=== PATIENT | male | born 1960 | race Caucasian/White ===

== ENCOUNTER 2017-11-11 06:15 | Day surgery (SDC) | END 2017-11-11 11:20 | disposition home or self-care (01) | DX: C21.0 Malignant neoplasm of anus, unspecified (principal); E03.9 Hypothyroidism, unspecified; I10 Essential (primary) hypertension; E11.9 Type 2 diabetes mellitus without complications; F17.210 Nicotine dependence, cigarettes, uncomplicated; Z79.899 Other long term (current) drug therapy; Z79.84 Long term (current) use of oral hypoglycemic drugs | CPT/HCPCS: 36561; 76937; 77001; 85610; 85730; 99152; 99153; C1788; J0690; J1642; J2250; J3010; J3370; J7030; J7050 ==

== ENCOUNTER 2017-11-12 06:24 | Day surgery (SDC) | payer OTHER ==
[~2017-11-12] VITALS: Ht 182.9 cm; Wt 102.0 kg
[2017-11-12] VITALS (8 sets, daily range): BP systolic 127–149; BP diastolic 71–89; PULSE 78–94; RESP 16–20; TEMP 97.9–98.4; O2SAT 92–95
[~2017-11-12 06:24] MED LIST: CAPE1TAB2 PO; DAPA1TAB3 PO; HYDR-3516 PO; LISI-515 PO; METF1000 PO; OXYC-396 PO
[2017-11-12] MEDS ORDERED: SODIUM CHLOR 0.9% 1000 ML IV SCH (07:00)
[2017-11-12] MEDS ORDERED: LIDOCAINE 1%/EPINEPHrine 1:100,000 SOLN 20 ML VIAL ONE (07:40)
[2017-11-12] MEDS ORDERED: fentaNYL CITRATE 250 MCG/5 ML AMP ONE (08:08)
[2017-11-12] MEDS ORDERED: MIDAZOLAM HCL 5 MG/5 ML VIAL ONE (08:08)
--- NOTE | 2017-11-12 09:36 | PD.RAD ---
Post CT Procedure Prog Note Pre Procedure Diagnosis: (1) Liver mass, left lobe Post Procedure Diagnosis: (1) Liver mass, left lobe Procedure Date: November 12, 2017 Supervising Radiologist: Benny Stewart Anesthesia: Local, Conscious Sedation Plan of Activity Patient to Unit: ROPU Patient Condition: Good See PACS Report for procedural detail/treatment Biopsy Imaging Guidance: CT Biopsy Procedure: Abdominal Mass, Liver Specimen: Core Biopsy Benny Stewart MD November 12, 2017 09:36
--- NOTE | 2017-11-12 10:13 | RADRPT ---
EXAM DATE: 11/12/2017 10:00 AM EDT AGE/SEX: 57 years / Male INDICATIONS: Liver biopsy. CLINICAL DATA: This is the patient's initial encounter. Patient reports that signs and symptoms have been present for 1 day and indicates a pain score of 0/10. MEDICAL/SURGICAL HISTORY: Carcinoma, anal. Deep venous thrombosis. Diabetes mellitus type II. Hypertension. Polycythemia. None. COMPARISON: No prior [facility] exams available for comparison. SEDATION TIME (min): 30 min BIOPSY SITE: . liver MEDICATION(S): midazolam (Versed) IV fentanyl (Sublimaze) IV DEVICE(S): 20 gauge Core biopsy needle Bard One . . PROCEDURE: CT guided . Liver mass biopsy Prior to the procedure informed consent was obtained. Any appropriate prior imaging studies were rev iewed. Using automated exposure control and adjustment of the mA and/or kV according to patient size, radiat ion dose was kept as low as reasonably achievable to obtain optimal diagnostic quality images. DICOM format image data is available electronically for review and comparison. The site was prepped in a sterile fashion. Full sterile technique was used, including cap, mask, derrell rile gloves and gown and a large sterile sheet. Hand hygiene and 2% chlorhexidine and/or betadine/al cohol prep was utilized per protocol for cutaneous antisepsis. The skin and subcutaneous tissues wer e infiltrated with local anesthetic solution. With CT guidance the previously identified target was localized. Biopsy was performed using the presc ribed needle as above. Adequate hemostasis was obtained with compression at the puncture site. Follow-up CT scan reveals no hemorrhage. The patient tolerated the procedure well and there were no complications. The patient was returned to the Radiology Outpatient Unit in stable condition. CONCLUSION: Uncomplicated CT guided biopsy. Electronically signed by: Benny Stewart MD 11/12/2017 10:12 AM EDT
== END 2017-11-12 12:40 | disposition home or self-care (01) ==
LOC: HROP 06:24 → HRIP 06:25 → HROP 12:40
PROVIDERS: ATTEND Internal Medicine
DX: R16.0 Hepatomegaly, not elsewhere classified (principal); I10 Essential (primary) hypertension; E11.9 Type 2 diabetes mellitus without complications
CPT/HCPCS: 47000; 77012; 88307; 88341; 88342; 99152; 99153; J2250; J3010; J7030

== ENCOUNTER 2018-01-21 16:23 | Inpatient (IN) ==
--- NOTE | 2018-01-21 17:05 | ED ---
HPI General Chief complaint: Extremity Injury, Lower Stated complaint: Poss Blood Clot/Phy Sent Time Seen by Provider: 01/21/18 16:47 Source: patient, RN notes reviewed and old records reviewed Mode of arrival: ambulatory Limitations: no limitations History of Present Illness HPI narrative: 57 y/o male presents with left leg pain and swelling with intermittent shortness of breath. Quality pain is sharp. He went to his oncologist Dr. Tirado and they advised him to come here for possible blood clot as he has history of blood clot in his right leg he states. MD complaint: leg pain Onset (ago): day(s) Location: left and lower extremity Radiation: non-radiation Severity: moderate Quality: aching Pain Consistency: constant Relieving factors: none Exacerbating factors: movement Associated symptoms: denies other symptoms Treatments prior to arrival: none Related Data Home Medications Medication Instructions Recorded Confirmed capecitabine [Xeloda] 1,500 mg PO Q12H 01/21/18 01/21/18 dapagliflozin [Farxiga] 10 mg PO QAM 01/21/18 01/21/18 insulin glargine [Toujeo SoloStar 30 unit SUB-Q DAILY 01/21/18 01/21/18 U-300 Insulin] metformin 1,000 mg PO BID 01/21/18 01/21/18 oxycodone 40 mg PO Q3HR PRN 01/21/18 01/21/18 Allergies Allergy/AdvReac Type Severity Reaction Status Date / Time warfarin Allergy Unknown Rash Verified 11/12/17 13:02 Review of Systems Except as stated in HPI: all other systems reviewed are negative PMFSH History History Provided By: Patient (Anal cancer that has spread to the liver, history of DVT) Medical History Medical History Diabetes type 2, controlled (Acute) HTN (hypertension) (Acute) Rectal cancer (Acute) Surgical History Surgical History Hx of right knee surgery (Acute) Social History Social History Substance History: No History of Abuse Second Hand Smoke Exposure: Yes Smoking Status: Current every day smoker Tobacco Type: Cigarettes How Often Do You Have a Drink Containing Alcohol: Never Recent Travel in [facility] within the Last 8 Weeks: No Recent Out of Country Travel within the Last 8 Weeks: No Exam Narrative Exam Narrative: GENERAL: 57 y/o male in no apparent distress SKIN: Focused skin assessment warm/dry. HEAD: Atraumatic. Normocephalic. EYES: Pupils equal and round. No scleral icterus. No injection or drainage. ENT: No nasal bleeding or discharge. Mucous membranes pink and moist. NECK: Trachea midline. CARDIOVASCULAR: Regular rate and rhythm. RESPIRATORY: No accessory muscle use. Clear to auscultation. Breath sounds equal bilaterally. GASTROINTESTINAL: Abdomen soft, non-tender, nondistended. MUSCULOSKELETAL: No obvious deformities. No clubbing. No cyanosis. Pain with palpation of left leg with moderate edema, no pain with other joints , neurovascularly intact, no lacerations over, compartments soft. NEUROLOGICAL: Awake and alert. Motor grossly within normal limits. Normal speech. PSYCHIATRIC: Appropriate mood and affect; insight and judgment normal. Course Reevaluation(s) Reevaluation #1: The patient on initial examination by me he reports having left leg pain. He reports that he has been taking oxycodone 40 mg as needed for the pain. the patient last took oxycodone at approximately noon. The patient will be given Dilaudid 1 mg IV, Reglan 5 mg IV. Time: 19:21 Consultations Consultation #1: The patient's case including history, pertinent physical examination findings, and laboratory studies were discussed with Dr. Mello. It was agreed that the patient would be admitted to the [facility] hospitalist service. Initial Documented Vital Signs Temperature 98.1 F 01/21/18 16:38 Pulse Rate 124 H 01/21/18 16:38 Respiratory Rate 16 01/21/18 16:38 Blood Pressure 121/80 01/21/18 16:38 Pulse Oximetry 99 01/21/18 16:38 Last Documented Vital Signs Temperature 98.1 F 01/21/18 16:38 Pulse Rate 109 H 01/21/18 19:19 Respiratory Rate 16 01/21/18 19:19 Blood Pressure 138/80 01/21/18 19:19 Pulse Oximetry 98 01/21/18 21:00 Sign Out Sign Out Data: Patient Sign Out occurred on 01/21/18 at 19:24. Patient's care was discussed, and care was transferred from Alyssa Turk MD to Daphnie Steen MD. Sign Out Comment: follow cta chest and admit Last updated by Alyssa Turk MD at 01/21/18 19:09 Post-Handoff Eval: The patient's case was checked out to me at the conclusion of 's shift. The patient presented with reports of left leg pain and swelling with intermittent shortness of breath. The patient was noted to have left lower extremity DVT. Patient is currently on chemotherapy for anal cancer that is spread to the liver. The patient reports a prior history of DVT in the right leg 6 years ago. He reports that he had a reaction to Coumadin with and was instead placed on Xarelto which he tolerated well previously. The plan was to start the patient on heparin. The patient was started on heparin in the emergency department. CTA to rule out pulmonary embolism associated with this was also ordered. The patient will be admitted after CTA is resulted. CT scan reveals bilateral pulmonary embolism. The patient's results were discussed with the patient, including the plan of care. I explained that further testing and/ or monitoring is indicated based on the patient's history, examination, and/ or laboratory findings. Therefore, I recommended admission for additional evaluation. The patient expressed understanding and was agreeable with this plan. The patient was admitted to the hospital in guarded condition and sent to a bed under the care of [facility] hospitalist. Medical Decision Making MDM Narrative Medical decision making narrative: Will check blood work, CT chest, Doppler ultrasound and reevaluate Differential Diagnosis Differential Diagnosis: DVT, PE, musculoskeletal Lab Data Result diagrams: 01/21/18 17:21 01/21/18 17:21 Lab Results 01/21/18 01/21/18 01/21/18 Range/Units 17:21 17:21 17:21 WBC 7.1 (4.0-11.0) th/mm3 RBC 4.48 L (4.50-5.90) mil/mm3 Hgb 14.2 (13.0-17.0) gm/dL Hct 42.0 (39.0-51.0) % MCV 93.9 (80.0-100.0) fL MCH 31.7 (27.0-34.0) pg MCHC 33.7 (32.0-36.0) % RDW 29.2 H (11.6-17.2) % Plt Count 158 (150-450) th/mm3 MPV 6.8 L (7.0-11.0) fL Prelim Diff (Auto) Slide review pending Neut % (Auto) 74.0 H (16.0-70.0) % Lymph % (Auto) 6.9 L (9.0-44.0) % Floyd % (Auto) 15.5 H (0.0-8.0) % Eos % (Auto) 2.9 (0.0-4.0) % Baso % (Auto) 0.7 (0.0-2.0) % Neut # (Auto) 5.3 (1.8-7.7) th/mm3 Lymph # (Auto) 0.5 L (1.0-4.8) th/mm3 Floyd # (Auto) 1.1 H (0.0-0.9) th/mm3 Eos # (Auto) 0.2 (0.0-0.4) th/mm3 Baso # (Auto) 0.1 (0.0-0.2) th/mm3 WBC Differential . Diff Scan Auto diff confirmed Differential Comment . PT 12.8 H (9.8-11.6) sec INR 1.3 Ratio APTT 25.7 (24.3-30.1) sec Sodium 130 L (136-145) meq/L Potassium 4.0 (3.5-5.1) meq/L Chloride 97 L (98-107) meq/L Carbon Dioxide 27.2 (21.0-32.0) meq/L Anion Gap 6 (5-15) meq/L BUN 12 (7-18) mg/dL Creatinine 0.97 (0.60-1.30) mg/dL Estimated GFR 79 L (>89) mL/min Random Glucose 250 H (74-106) mg/dL Lactic Acid (0.4-2.0) mmol/L Calcium 9.0 (8.5-10.1) mg/dL Magnesium 1.6 (1.5-2.5) mg/dL Total Bilirubin 0.9 (0.2-1.0) mg/dL AST 10 L (15-37) U/L ALT 17 (12-78) U/L Alkaline Phosphatase 144 H (45-117) U/L Total Protein 6.7 (6.4-8.2) g/dL Albumin 3.2 L (3.4-5.0) g/dL 01/21/18 Range/Units 17:21 WBC (4.0-11.0) th/mm3 RBC (4.50-5.90) mil/mm3 Hgb (13.0-17.0) gm/dL Hct (39.0-51.0) % MCV (80.0-100.0) fL MCH (27.0-34.0) pg MCHC (32.0-36.0) % RDW (11.6-17.2) % Plt Count (150-450) th/mm3 MPV (7.0-11.0) fL Prelim Diff (Auto) Neut % (Auto) (16.0-70.0) % Lymph % (Auto) (9.0-44.0) % Floyd % (Auto) (0.0-8.0) % Eos % (Auto) (0.0-4.0) % Baso % (Auto) (0.0-2.0) % Neut # (Auto) (1.8-7.7) th/mm3 Lymph # (Auto) (1.0-4.8) th/mm3 Floyd # (Auto) (0.0-0.9) th/mm3 Eos # (Auto) (0.0-0.4) th/mm3 Baso # (Auto) (0.0-0.2) th/mm3 WBC Differential Diff Scan Differential Comment PT (9.8-11.6) sec INR Ratio APTT (24.3-30.1) sec Sodium (136-145) meq/L Potassium (3.5-5.1) meq/L Chloride (98-107) meq/L Carbon Dioxide (21.0-32.0) meq/L Anion Gap (5-15) meq/L BUN (7-18) mg/dL Creatinine (0.60-1.30) mg/dL Estimated GFR (>89) mL/min Random Glucose (74-106) mg/dL Lactic Acid 1.1 (0.4-2.0) mmol/L Calcium (8.5-10.1) mg/dL Magnesium (1.5-2.5) mg/dL Total Bilirubin (0.2-1.0) mg/dL AST (15-37) U/L ALT (12-78) U/L Alkaline Phosphatase (45-117) U/L Total Protein (6.4-8.2) g/dL Albumin (3.4-5.0) g/dL Imaging Data Radiologist's impression: Chest CTA 01/21/18 16:56 CONCLUSION: 1. Examination is positive for fairly extensive bilateral pulmonary embolic disease. 2. Severe coronary calcifications. Venous Doppler Study 01/21/18 16:56 CONCLUSION: 1. Extensive deep venous thrombosis in the left lower extremity as above. Discharge Plan Discharge Disposition Patient Disposition: 30 Still Patient Discharge Details Diagnosis: DVT (deep venous thrombosis), Acute pulmonary embolism Physicians Team ED Provider: Daphnie Steen Primary Care Provider: Axel Manrique Rxs /Orders / Referrals /Forms Prescriptions: No Action capecitabine [Xeloda] 500 mg Tablet 1,500 mg PO Q12H RF: 0 metformin 1,000 mg Tablet 1,000 mg PO BID RF: 0 oxycodone 20 mg Tablet 40 mg PO Q3HR PRN (Reason: Pain) RF: 0 dapagliflozin [Farxiga] 10 mg Tablet 10 mg PO QAM RF: 0 insulin glargine [Toujeo SoloStar U-300 Insulin] 300 unit/mL (1.5 mL) Insulin Pen 30 unit SUB-Q DAILY RF: 0 Status ED Status: With Doctor
[2018-01-21 17:48] LABS: Baso # (Auto) 0.1 th/mm3 (0.0-0.2); Baso % (Auto) 0.7 % (0.0-2.0); Eos # (Auto) 0.2 th/mm3 (0.0-0.4); Eos % (Auto) 2.9 % (0.0-4.0); Hemoglobin 14.2 gm/dL (13.0-17.0); Lymph # (Auto) 0.5 th/mm3 (1.0-4.8); Lymph % (Auto) 6.9 % (9.0-44.0); Mean Corpuscular HGB Conc 33.7 % (32.0-36.0); Mean Corpuscular Hemoglobin 31.7 pg (27.0-34.0); Mean Corpuscular Volume 93.9 fL (80.0-100.0); Mean Platelet Volume 6.8 fL (7.0-11.0); Mono # (Auto) 1.1 th/mm3 (0.0-0.9); Mono % (Auto) 15.5 % (0.0-8.0); Neut # (Auto) 5.3 th/mm3 (1.8-7.7); Platelet Count 158 th/mm3 (150-450); Red Blood Count 4.48 mil/mm3 (4.50-5.90); Red Cell Distribution Width 29.2 % (11.6-17.2); White Blood Count 7.1 th/mm3 (4.0-11.0)
[2018-01-21 18:07] LABS: Activated Partial Thrombo Time 25.7 sec (24.3-30.1); INR 1.3 Ratio; Prothrombin Time 12.8 sec (9.8-11.6)
[2018-01-21 18:08] LABS: Albumin 3.2 g/dL (3.4-5.0); Anion Gap 6 meq/L (5-15); Aspartate Aminotransferase 10 U/L (15-37); Blood Urea Nitrogen 12 mg/dL (7-18); Carbon Dioxide 27.2 meq/L (21.0-32.0); Chloride 97 meq/L (98-107); Glomerular Filtration Rate 79 mL/min (>89); Glucose,Random 250 mg/dL (74-106); Magnesium 1.6 mg/dL (1.5-2.5); Sodium 130 meq/L (136-145)
[2018-01-21 18:09] LABS: Alanine Aminotransferase 17 U/L (12-78)
[2018-01-21 18:11] LABS: Alkaline Phosphatase 144 U/L (45-117); Total Protein 6.7 g/dL (6.4-8.2)
--- NOTE | 2018-01-21 18:22 | US ---
EXAM DATE: 01/21/2018 6:17 PM EDT AGE/SEX: 57 years / Male INDICATIONS: Left lower extremity swelling and pain. CLINICAL DATA: This is the patient's initial encounter. Patient reports that signs and symptoms have been present for 3 days and indicates a pain score of 5/10. MEDICAL/SURGICAL HISTORY: Carcinoma, rectal. Diabetes. Hypertension. None. COMPARISON: No prior exams available for comparison. TECHNIQUE: Venous ultrasound of both lower extremities was performed from the inguinal ligament to t he proximal calf. Real-time, color Doppler and spectral tracing, compression and augmentation techni ques were used. FINDINGS: There is positive deep venous thrombosis with occlusive thrombus in the common femoral vei n, superficial femoral vein, popliteal vein and down to the distal posterior tibial vein. The left co mmon iliac and greater saphenous vein are patent. CONCLUSION: 1. Extensive deep venous thrombosis in the left lower extremity as above. Electronically signed by: Johnny Amador MD 01/21/2018 6:20 PM EDT
[2018-01-21] MEDS ORDERED: Heparin 10,000 UNITS/10 ML Vial (for IV use) IV.PUSH STA (18:44)
[2018-01-21] MEDS: Heparin Drip 25,000 UNIT/250 ML BAG IV.CONT PRN (19:06)
[2018-01-21] MEDS ORDERED: HYDROmorphone PF Inj 2 MG/ML Vial IV.PUSH ONE (20:07)
--- NOTE | 2018-01-21 20:13 | CT ---
EXAM DATE: 01/21/2018 8:08 PM EDT AGE/SEX: 57 years / Male INDICATIONS: Chest pain. CLINICAL DATA: This is the patient's initial encounter. Patient reports that signs and symptoms have been present for 1 day and indicates a pain score of 3/10. MEDICAL/SURGICAL HISTORY: Carcinoma, colon. Deep venous thrombosis. None. RADIATION DOSE: 21.93 CTDI (mGy) COMPARISON: No prior exams available for comparison. TECHNIQUE: Volumetric scanning was performed using a multi-row detector CT scanner during bolus infu mohit of 75 ml Omnipaque 350 (iohexol) nonionic water-soluble contrast as a single exam dose. The gabriela a was post processed with a variety of visualization algorithms including full volume maximum intensi ty projection and sliding thin slab reformation. Using automated exposure control and adjustment of the mA and/or kV according to patient size, radiation dose was kept as low as reasonably achievable t o obtain optimal diagnostic quality images. DICOM format image data is available electronically for review and comparison. FINDINGS: Examination is positive for fairly extensive pulmonary embolus bilaterally, slightly worse on the lef t side. No associated lung consolidation. Minimal dependent atelectasis. No pleural or pericardial ef fusion. Severe coronary calcifications. No hilar, mediastinal or axillary adenopathy. No acute findings in the upper abdomen. CONCLUSION: 1. Examination is positive for fairly extensive bilateral pulmonary embolic disease. 2. Severe coronary calcifications. Electronically signed by: Johnny Amador MD 01/21/2018 8:11 PM EDT
[2018-01-21] MEDS ORDERED: Acetaminophen 325 MG Tablet PO PRN (21:33)
[2018-01-21] MEDS ORDERED: Bisacodyl 10 MG Supp RECTAL PRN (21:33)
[2018-01-21] MEDS ORDERED: Dextrose 50% in Water 50 ML Vial IV.PUSH PRN (21:42)
[2018-01-21] MEDS ORDERED: HYDROmorphone PF Inj 1 MG/ML Ampul IV.PUSH PRN ×2 (21:44)
[2018-01-21] MEDS ORDERED: Naloxone Inj 0.4 MG/ML Vial IV.PUSH PRN (21:44)
[2018-01-21] MEDS ORDERED: HYDROmorphone PF Inj 2 MG/ML Vial IV.PUSH PRN (22:15)
[2018-01-21] MEDS: HYDROmorphone PF Inj 2 MG/ML Vial IV.PUSH PRN (22:22)
[2018-01-21] MEDS: Temazepam 15 MG Capsule PO PRN (23:44)
[2018-01-22] MEDS: HYDROmorphone PF Inj 2 MG/ML Vial IV.PUSH PRN ×6 (00:56→23:53)
[2018-01-22 01:31] LABS: Baso % (Auto) 0.8 % (0.0-2.0); Eos # (Auto) 0.3 th/mm3 (0.0-0.4); Eos % (Auto) 5.2 % (0.0-4.0); Hematocrit 41.2 % (39.0-51.0); Hemoglobin 14.1 gm/dL (13.0-17.0); Lymph # (Auto) 0.5 th/mm3 (1.0-4.8); Mean Corpuscular HGB Conc 34.1 % (32.0-36.0); Mean Corpuscular Hemoglobin 31.7 pg (27.0-34.0); Mean Corpuscular Volume 92.7 fL (80.0-100.0); Mean Platelet Volume 6.8 fL (7.0-11.0); Mono # (Auto) 0.8 th/mm3 (0.0-0.9); Mono % (Auto) 12.3 % (0.0-8.0); Neut # (Auto) 4.7 th/mm3 (1.8-7.7); Neut % (Auto) 73.7 % (16.0-70.0); Platelet Count 141 th/mm3 (150-450); Red Blood Count 4.44 mil/mm3 (4.50-5.90); Red Cell Distribution Width 28.5 % (11.6-17.2); White Blood Count 6.3 th/mm3 (4.0-11.0)
[2018-01-22 01:39] LABS: INR 1.3 Ratio; Prothrombin Time 12.9 sec (9.8-11.6)
[2018-01-22 01:52] LABS: Alanine Aminotransferase 15 U/L (12-78); Anion Gap 8 meq/L (5-15); Aspartate Aminotransferase 11 U/L (15-37); Blood Urea Nitrogen 11 mg/dL (7-18); Calcium 8.7 mg/dL (8.5-10.1); Chloride 100 meq/L (98-107); Glomerular Filtration Rate Greater Than 89 mL/min (>89); Glucose,Random 260 mg/dL (74-106); Potassium 3.9 meq/L (3.5-5.1); Sodium 137 meq/L (136-145)
[2018-01-22 01:54] LABS: Alkaline Phosphatase 137 U/L (45-117); Total Protein 6.2 g/dL (6.4-8.2)
[2018-01-22 03:20] LABS: Ovalocytes 1+; Platelet Morphology Normal (Normal); Spherocytes Occ
[2018-01-22] MEDS: Senna/Docusate Sodium 8.6/50 MG Tablet PO SCH ×2 (08:15→20:39)
[2018-01-22] MEDS ORDERED: FARXIGA 10 MG PO SCH (09:00)
[2018-01-22] MEDS ORDERED: XELODA 1500 MG PO SCH (09:00)
[2018-01-22] MEDS ORDERED: TOUJEO SQ SCH (09:00)
--- NOTE | 2018-01-22 09:20 | P.HP ---
<Minerva Marino W - Last Filed: 01/23/18 17:46> History of Present Illness Primary Care Physician: Axel Manrique MD Chief Complaint: Left lower extremity edema and intermittent shortness of breath History of Present Illness: Mr. Nixon is a pleasant 57 y/o WM with stage IV adenocarcinoma of rectal origin, oligometastatic disease to the liver currently being treated with neoadjuvant therapy consisting of Xeloda and radiation, diabetes, mellitus, HTN , hyperlipidemia, ELIAZAR, and secondary polycythemia. Patient presented tot the ER 01/21/18 with presents with left leg pain and swelling for the past 2 weeks with intermittent shortness of breath. Quality pain is sharp. He went to his oncologist Dr. Hernandez and they advised him to come here for possible blood clot as he has history of DVT in his right leg 2012. Left lower extremity ultrasound reveals extensive DVT in the left lower extremity thrombus with occlusive thrombus in the common femoral vein, superficial femoral vein, popliteal vein and down to the distal posterior tibial vein. CT angiogram of the chest reviewed conclusion examination is positive for fairly extensive bilateral pulmonary disease embolic disease. Patient was started on heparin drip and admitted to the hospital. Patient c/o rectal pain and LLE pain not controlled by Dilaudid. Patient also endorses recent episodes of diarrhea after radiation. Patient denies chest pain, fevers or chills. 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 Hernandez Diabetes mellitus HTN Hypertriglyceridemia Vianey's thyroiditis ELIAZAR Secondary Polycythemia RBBB Hx of LE DVT following surgery in 2012 Past Surgical History Right knee arthroscopy 2012 Family History Noncontributory Social History (+)Tobacco use approximately 1 pack per day Denies any alcohol or illicit drug use Pt currently unemployed - Diagnosis (1) Acute pulmonary embolism (2) DVT (deep venous thrombosis) Inpatient Certification: I certify that the inpatient services were ordered in accordance with Medicare regulations governing the order. This includes certification that hospital inpatient services are reasonable and necessary and in the case of services not specified as inpatient-only under 42 CFR 419.22(n), that they are appropriately provided as inpatient services in accordance to with the 2-midnight benchmark under 43 CFR 412.3(e) Estimated Total Length of Stay (Days): 3 Plans for Post Hospital Care: Home health Review of Systems All other systems reviewed negative except as stated in HPI [facility] - History History Provided By: Patient - Medical History Medical History: Medical History (Last Reviewed 01/23/18 @ 07:56 by eNo Eng) Diabetes type 2, controlled HTN (hypertension) Rectal cancer Anxiety DVT (deep venous thrombosis) Depression Light-headedness Port-A-Cath in place - Surgical History Surgical History: Surgical History (Last Reviewed 01/23/18 @ 07:56 by Neo Eng) Hx of right knee surgery Status post chemotherapy Status post radiation therapy - Tobacco History Second Hand Smoke Exposure: No Tobacco Use In Past 30 Days: Yes Smoking Status: Current every day smoker Tobacco Type: Cigarettes - Alcohol History How Often Do You Have a Drink Containing Alcohol: 2 to 3 times a week - Substance Use History Substance History: No History of Abuse - Travel History Recent Travel in the [place] Within the Last 8 Weeks: No Recent Travel Out of the Country Within the Last 8 Weeks: No - Immunization History Tetanus Immunization: <5 Years Hx Influenza Vaccine This Season: No Medications and Allergies Allergies Allergy/AdvReac Type Severity Reaction Status Date / Time warfarin Allergy Unknown Rash Verified 11/12/17 13:02 Home Medications Medication Instructions Recorded Confirmed Type capecitabine [Xeloda] 1,500 mg PO Q12H 01/21/18 01/21/18 History dapagliflozin [Farxiga] 10 mg PO QAM 01/21/18 01/21/18 History insulin glargine [Toujeo SoloStar 30 unit SUB-Q DAILY 01/21/18 01/21/18 History U-300 Insulin] metformin 1,000 mg PO BID 01/21/18 01/21/18 History oxycodone 40 mg PO Q3HR PRN 01/21/18 01/21/18 History Active Medications: Active Medications Acetaminophen (Tylenol) 650 mg PO Q4H PRN PRN Reason: Temp > 100.4 Al Hydroxide/Mg Hydroxide (Milk Of Magnesia Liq) 30 ml PO Q12H PRN PRN Reason: Mild Constipation Bisacodyl (Dulcolax Supp) 10 mg RECTAL DAILY PRN PRN Reason: SEVERE CONSITIPATION Dextrose (D50w Vial) 50 ml IV.PUSH UNSCH PRN PRN Reason: PER HYPOGLYCEMIA PROTOCOL Glucagon (Glucagon Inj) 1 mg OTHER PRN PRN PRN Reason: for Hypoglycemia Protocol Hydromorphone HCl (Dilaudid Pf Inj) 0.5 mg IV.PUSH Q3H PRN PRN Reason: PAIN 3-5; IF UABLE TO TAKE PO Last Admin: 01/22/18 08:15 Dose: 0.5 mg Hydromorphone HCl (Dilaudid Pf Inj) 1 mg IV.PUSH Q3H PRN PRN Reason: PAIN 6-10;IF UNABLE TO TAKE PO Last Admin: 01/22/18 04:39 Dose: 1 mg Heparin Sodium/Dextrose (Heparin/D5w 25,000 U/250 Ml) 25,000 unit in 250 mls @ 0 mls/hr IV.CONT TITRATE PRN; Protocol PRN Reason: Per Protocol Last Admin: 01/21/18 19:06 Dose: 1,800 units/hr, 18 mls/hr Insulin Aspart (Novolog Insulin Correctional Sugar Inj) 0 unit SQ ACHS JAZMINE; Protocol Lactulose (Lactulose Liq) 30 ml PO DAILY PRN PRN Reason: SEVERE CONSITIPATION Naloxone HCl (Narcan Inj) 0.4 mg IV.PUSH UNSCH PRN PRN Reason: SEE LABEL COMMENTS Ondansetron HCl (Zofran Inj) 4 mg IV.PUSH Q6H PRN PRN Reason: NAUSEA OR VOMITING Pt Own: Farxiga 10mg 0 each PO DAILY [facility] Pt Own: Toujeo (Solostar) 0 each SQ DAILY [facility] Pt Own: Xeloda (1500mg) 0 each PO BID [facility] Senna/Docusate Sodium (Bekah-Colace) 1 tab PO BID [facility] Last Admin: 01/22/18 08:15 Dose: 1 tab Sennosides (Senokot) 17.2 mg PO Q12H PRN PRN Reason: Moderate Constipation Sodium Chloride (Ns Flush) 2 ml IV.FLUSH UNSCH PRN PRN Reason: FLUSH AFTER USING IV ACCESS Last Admin: 01/21/18 19:08 Dose: 2 ml Temazepam (Restoril) 15 mg PO HS PRN PRN Reason: INSOMNIA Last Admin: 01/21/18 23:44 Dose: 15 mg Exam Vital signs: Vital Signs 01/21/18 16:38 01/21/18 17:05 01/21/18 19:19 Temperature 98.1 F Pulse Rate 124 H 109 H 109 H Respiratory Rate 16 18 16 Blood Pressure 121/80 101/64 138/80 Pulse Oximetry 99 99 98 01/21/18 21:00 01/21/18 21:33 01/21/18 22:23 Temperature Pulse Rate 99 H Respiratory Rate 18 18 Blood Pressure 132/83 Pulse Oximetry 98 01/22/18 00:00 01/22/18 04:00 01/22/18 08:00 Temperature 97.5 F L 98.8 F 98 F Pulse Rate 100 H 94 H 97 H Respiratory Rate 16 16 16 Blood Pressure 121/63 134/78 139/87 Pulse Oximetry 98 96 97 Intake & Output 01/21/18 01/22/18 01/22/18 18:59 06:59 18:59 Intake Total 240 / 240 Output Total 500 / 500 Balance -260 / -260 Weight 102.058 kg 101.7 kg Intake: Oral 240 / 240 Output: Urine 500 / 500 Other: Date of Last Bowel Movement 01/19/18 Weight On Admission 101.7 kg Narrative: GENERAL: This is a well-nourished, well-developed patient, in no apparent distress. CARDIOVASCULAR: Regular rate and rhythm without murmurs, gallops, or rubs. RESPIRATORY: Clear to auscultation. Breath sounds equal bilaterally. No wheezes , rales, or rhonchi. GASTROINTESTINAL: Abdomen soft, non-tender, nondistended. Normal active bowel sounds MUSCULOSKELETAL: Extremities without clubbing, cyanosis, or edema. NEURO: Alert & Oriented x4 to person, place, time, situation. Moves all ext x4 Results - Labs CBC & Chem 7: 01/23/18 03:35 01/22/18 01:16 Labs: Laboratory Results - last 24 hr 01/21/18 01/21/18 01/21/18 17:21 17:21 17:21 WBC 7.1 RBC 4.48 L Hgb 14.2 Hct 42.0 MCV 93.9 MCH 31.7 MCHC 33.7 RDW 29.2 H Plt Count 158 MPV 6.8 L Prelim Diff (Auto) Slide review pending Neut % (Auto) 74.0 H Lymph % (Auto) 6.9 L Gilchrist % (Auto) 15.5 H Eos % (Auto) 2.9 Baso % (Auto) 0.7 Neut # (Auto) 5.3 Lymph # (Auto) 0.5 L Gilchrist # (Auto) 1.1 H Eos # (Auto) 0.2 Baso # (Auto) 0.1 WBC Differential . Diff Scan Auto diff confirmed Differential Comment . Platelet Estimate Platelet Morphology Spherocytes Ovalocytes Keratocytes PT 12.8 H INR 1.3 APTT 25.7 Sodium 130 L Potassium 4.0 Chloride 97 L Carbon Dioxide 27.2 Anion Gap 6 BUN 12 Creatinine 0.97 Estimated GFR 79 L POC Glucose Random Glucose 250 H Lactic Acid Calcium 9.0 Magnesium 1.6 Total Bilirubin 0.9 AST 10 L ALT 17 Alkaline Phosphatase 144 H Total Protein 6.7 Albumin 3.2 L 01/21/18 01/21/18 01/22/18 17:21 22:32 01:00 WBC RBC Hgb Hct MCV MCH MCHC RDW Plt Count MPV Prelim Diff (Auto) Neut % (Auto) Lymph % (Auto) Gilchrist % (Auto) Eos % (Auto) Baso % (Auto) Neut # (Auto) Lymph # (Auto) Gilchrist # (Auto) Eos # (Auto) Baso # (Auto) WBC Differential Diff Scan Differential Comment Platelet Estimate Platelet Morphology Spherocytes Ovalocytes Keratocytes PT INR APTT 56.6 H D Sodium Potassium Chloride Carbon Dioxide Anion Gap BUN Creatinine Estimated GFR POC Glucose 219 H Random Glucose Lactic Acid 1.1 Calcium Magnesium Total Bilirubin AST ALT Alkaline Phosphatase Total Protein Albumin 01/22/18 01/22/18 01/22/18 01:16 01:16 01:16 WBC 6.3 RBC 4.44 L Hgb 14.1 Hct 41.2 MCV 92.7 MCH 31.7 MCHC 34.1 RDW 28.5 H Plt Count 141 L MPV 6.8 L Prelim Diff (Auto) Slide review pending Neut % (Auto) 73.7 H Lymph % (Auto) 8.0 L Gilchrist % (Auto) 12.3 H Eos % (Auto) 5.2 H Baso % (Auto) 0.8 Neut # (Auto) 4.7 Lymph # (Auto) 0.5 L Gilchrist # (Auto) 0.8 Eos # (Auto) 0.3 Baso # (Auto) 0.0 WBC Differential . Diff Scan Auto diff confirmed Differential Comment . Platelet Estimate Low L Platelet Morphology Normal Spherocytes Occ H Ovalocytes 1+ H Keratocytes Occ H PT 12.9 H INR 1.3 APTT Sodium 137 Potassium 3.9 Chloride 100 Carbon Dioxide 29.0 Anion Gap 8 BUN 11 Creatinine 0.84 Estimated GFR Greater than 89 POC Glucose Random Glucose 260 H Lactic Acid Calcium 8.7 Magnesium Total Bilirubin 0.8 AST 11 L ALT 15 Alkaline Phosphatase 137 H Total Protein 6.2 L Albumin 3.0 L 01/22/18 01/22/18 07:00 08:23 WBC RBC Hgb Hct MCV MCH MCHC RDW Plt Count MPV Prelim Diff (Auto) Neut % (Auto) Lymph % (Auto) Gilchrist % (Auto) Eos % (Auto) Baso % (Auto) Neut # (Auto) Lymph # (Auto) Gilchrist # (Auto) Eos # (Auto) Baso # (Auto) WBC Differential Diff Scan Differential Comment Platelet Estimate Platelet Morphology Spherocytes Ovalocytes Keratocytes PT INR APTT 31.3 H D Sodium Potassium Chloride Carbon Dioxide Anion Gap BUN Creatinine Estimated GFR POC Glucose 250 H Random Glucose Lactic Acid Calcium Magnesium Total Bilirubin AST ALT Alkaline Phosphatase Total Protein Albumin - Imaging Impressions Chest CTA 01/21/18 16:56 CONCLUSION: 1. Examination is positive for fairly extensive bilateral pulmonary embolic disease. 2. Severe coronary calcifications. Venous Doppler Study 01/21/18 16:56 CONCLUSION: 1. Extensive deep venous thrombosis in the left lower extremity as above. Caprini VTE Risk Assessment Caprini VTE Risk Assessment: Moderate/High Risk (score >= 2) Caprini Risk Assessment Model: Point Value = 1 Point Value = 2 Point Value = 3 Point Value = 5 Age 41-60 Minor surgery BMI > 25 kg/m2 Swollen legs Varicose veins or History of unexplained or recurrent spontaneous Oral contraceptives or hormone replacement Sepsis (< 1 month) Serious lung disease, including pneumonia (< 1 month) Abnormal pulmonary function Acute myocardial infarction Congestive heart failure (< 1 month) History of inflammatory bowel disease Medical patient at bed rest Age 61-74 Arthroscopic surgery Major open surgery (> 45 min) Laparoscopic surgery (> 45 min) Malignancy Confined to bed (> 72 hours) Immobilizing plaster cast Central venous access Age >= 75 History of VTE Family history of VTE Factor V Leiden Prothrombin [id number] Lupus anticoagulant Anticardiolipin antibodies Elevated serum homocysteine Heparin-induced thrombocytopenia Other congenital or acquired thrombophilia Stroke (< 1 month) Elective arthroplasty Hip, pelvis, or leg fracture Acute spinal cord injury (< 1 month) Prophylaxis Regimen: Total Risk Factor Score Risk Level Prophylaxis Regimen 0-1 Low Early ambulation 2 Moderate Order ONE of the following: *Sequential Compression Device (SCD) *Heparin 5000 units SQ BID 3-4 Higher Order ONE of the following medications: *Heparin 5000 units SQ TID *Enoxaparin/Lovenox 40 mg SQ daily (WT < 150 kg, CrCl > 30 mL/min) *Enoxaparin/Lovenox 30 mg SQ daily (WT < 150 kg, CrCl > 10-29 mL/min) *Enoxaparin/Lovenox 30 mg SQ BID (WT < 150 kg, CrCl > 30 mL/min) AND/OR *Sequential Compression Device (SCD) 5 or more Highest Order ONE of the following medications: *Heparin 5000 units SQ TID (Preferred with Epidurals) *Enoxaparin/Lovenox 40 mg SQ daily (WT < 150 kg, CrCl > 30 mL/min) *Enoxaparin/Lovenox 30 mg SQ daily (WT < 150 kg, CrCl > 10-29 mL/min) *Enoxaparin/Lovenox 30 mg SQ BID (WT < 150 kg, CrCl > 30 mL/min) AND *Sequential Compression Device (SCD) Assessment and Plan - Assessment (1) Acute pulmonary embolism Code(s): I26.99 - Other pulmonary embolism without acute cor pulmonale Status : Acute Plan: Mr. Nixon is a pleasant 57 y/o WM with stage IV adenocarcinoma of rectal origin, oligometastatic disease to the liver currently being treated with neoadjuvant therapy consisting of Xeloda and radiation, diabetes mellitus, HTN, hyperlipidemia, ELIAZAR, secondary polycythemia, and history of DVT in his right leg 2012. Patient presented to the ER 01/21/18 with presents with left leg pain and swelling with intermittent shortness of breath. Acute extensive pulmonary emboli bilaterally Left lower extremity DVT Left lower extremity ultrasound reveals extensive DVT in the left lower extremity thrombus with occlusive thrombus in the common femoral vein, superficial femoral vein, popliteal vein and down to the distal posterior tibial vein. CT angiogram of the chest reviewed conclusion examination is positive for fairly extensive bilateral pulmonary disease embolic disease. Patient was started on heparin drip and admitted to the hospital. Dr. Martinez discussed case with Dr. Hernandez who recommends DC heparin and start Lovenox 100 mg SQ BID heparin drip DC'd and start Lovenox 100 mg SQ BID Pain - uncontrolled c/o rectal pain lower extremity pain resume home oxycodone 20 mg PO Q4H hold for sedation add Dilaudid 1 mg IV as needed for breakthrough pain Diabetes mellitus type 2, noninsulin dependent - OHA resumed - NovoLog SSI - Accu checks Hypertension, benign - Home meds continued - Monitor Vianey's thyroiditis - Home dose of Synthroid continued ELIAZAR (obstructive sleep apnea) - Pt does not use CPAP Hyperlipidemia - Home meds continued Polycythemia, secondary - Pt follows with Dr. Hernandez - He has periodic phlebotomy - Per Dr. Abdullahi last office note, pts polycythemia is secondary to untreated ELIAZAR , tobacco use. - H/H at admission was stable. (2) DVT (deep venous thrombosis) Code(s): I82.409 - Acute embolism and thrombosis of unspecified deep veins of unspecified lower extremity Status: Acute <Babak Martinez - Last Filed: 01/24/18 15:05> History of Present Illness Primary Care Physician: Axel Manrique MD - Diagnosis (1) Acute pulmonary embolism (2) DVT (deep venous thrombosis) Inpatient Certification: I certify that the inpatient services were ordered in accordance with Medicare regulations governing the order. This includes certification that hospital inpatient services are reasonable and necessary and in the case of services not specified as inpatient-only under 42 CFR 419.22(n), that they are appropriately provided as inpatient services in accordance to with the 2-midnight benchmark under 43 CFR 412.3(e) [facility] - Medical History Medical History: Medical History (Last Reviewed 01/23/18 @ 07:56 by Neo Eng) Diabetes type 2, controlled HTN (hypertension) Rectal cancer Anxiety DVT (deep venous thrombosis) Depression Light-headedness Port-A-Cath in place - Surgical History Surgical History: Surgical History (Last Reviewed 01/23/18 @ 07:56 by Neo Eng) Hx of right knee surgery Status post chemotherapy Status post radiation therapy Medications and Allergies Active Medications: Active Medications Acetaminophen (Tylenol) 650 mg PO Q4H PRN PRN Reason: Temp > 100.4 Al Hydroxide/Mg Hydroxide (Milk Of Magnesia Liq) 30 ml PO Q12H PRN PRN Reason: Mild Constipation Bisacodyl (Dulcolax Supp) 10 mg RECTAL DAILY PRN PRN Reason: SEVERE CONSITIPATION Dextrose (D50w Vial) 50 ml IV.PUSH UNSCH PRN PRN Reason: PER HYPOGLYCEMIA PROTOCOL Gabapentin (Neurontin) 100 mg PO BID [facility] Last Admin: 01/24/18 08:00 Dose: 100 mg Glucagon (Glucagon Inj) 1 mg OTHER PRN PRN PRN Reason: for Hypoglycemia Protocol Heparin Sodium (Porcine) (Heparin Inj) 5,000 units IV.PUSH UNSCH PRN PRN Reason: aPTT < 25 Heparin Sodium (Porcine) (Heparin Inj) 2,500 units IV.PUSH UNSCH PRN PRN Reason: aPTT 25-39 Hydromorphone/Sodium Chloride (Dilaudid Probe Operator Inj) 6 mg in 30 mls @ 0 mls/hr POST TRONIC MACHINE OPERATOR UNSCH PRN PRN Reason: per POST TRONIC MACHINE OPERATOR parameters Last Admin: 01/24/18 11:07 Dose: 0 mls/hr Heparin Sodium/Dextrose (Heparin/D5w 25,000 U/250 Ml) 25,000 unit in 250 mls @ 18 mls/hr IV.CONT TITRATE PRN; Protocol PRN Reason: Per Protocol Last Titration: 01/24/18 06:54 Dose: Infused Insulin Aspart (Novolog Insulin Correctional Sugar Inj) 0 unit SQ ACHS [facility]; Protocol Last Admin: 01/24/18 11:02 Dose: Not Given Lactulose (Lactulose Liq) 30 ml PO DAILY PRN PRN Reason: SEVERE CONSITIPATION Naloxone HCl (Narcan Inj) 0.4 mg IV.PUSH UNSCH PRN PRN Reason: SEE LABEL COMMENTS Naloxone HCl (Narcan Inj) 0.4 mg IV.PUSH PRN PRN PRN Reason: SEE LABEL COMMENTS Ondansetron HCl (Zofran Inj) 4 mg IV.PUSH Q6H PRN PRN Reason: NAUSEA OR VOMITING Oxycodone HCl (Roxicodone) 30 mg PO Q4H [facility] Last Admin: 01/24/18 14:28 Dose: 30 mg Pt Own: Farxiga 10mg 0 each PO DAILY [facility] Pt Own: Toujeo (Solostar) 0 each SQ DAILY [facility] Pt Own: Capecitabine (500 Mg) 0 each PO BID [facility] Last Admin: 01/24/18 08:00 Dose: 3 each Senna/Docusate Sodium (Bekah-Colace) 1 tab PO BID [facility] Last Admin: 01/24/18 08:00 Dose: Not Given Sennosides (Senokot) 17.2 mg PO Q12H PRN PRN Reason: Moderate Constipation Sodium Chloride (Ns Flush) 2 ml IV.FLUSH UNSCH PRN PRN Reason: FLUSH AFTER USING IV ACCESS Last Admin: 01/21/18 19:08 Dose: 2 ml Temazepam (Restoril) 15 mg PO HS PRN PRN Reason: INSOMNIA Last Admin: 01/22/18 23:12 Dose: 15 mg Exam Vital signs: Vital Signs 01/23/18 16:00 01/23/18 17:00 01/23/18 17:44 Temperature 97.6 F Pulse Rate 88 88 Respiratory Rate 18 16 Blood Pressure 130/72 Pulse Oximetry 97 01/23/18 18:00 01/23/18 18:55 01/23/18 19:55 Temperature Pulse Rate 104 H 99 H Respiratory Rate 16 Blood Pressure Pulse Oximetry 01/23/18 22:00 01/23/18 23:11 01/24/18 00:00 Temperature Pulse Rate 84 90 Respiratory Rate 16 18 Blood Pressure 125/70 Pulse Oximetry 94 L 01/24/18 00:04 01/24/18 01:00 01/24/18 02:00 Temperature Pulse Rate 89 96 H 98 H Respiratory Rate Blood Pressure Pulse Oximetry 01/24/18 02:12 01/24/18 03:30 01/24/18 04:00 Temperature Pulse Rate 88 90 Respiratory Rate 18 16 Blood Pressure 140/75 Pulse Oximetry 95 01/24/18 04:34 01/24/18 07:00 01/24/18 08:00 Temperature 98.2 F Pulse Rate 80 95 H Respiratory Rate 16 16 Blood Pressure 127/83 Pulse Oximetry 95 01/24/18 08:13 01/24/18 09:00 01/24/18 09:54 Temperature Pulse Rate 80 104 H Respiratory Rate 20 16 Blood Pressure 129/95 H Pulse Oximetry 95 01/24/18 10:08 01/24/18 10:09 01/24/18 10:36 Temperature Pulse Rate 98 H 94 H Respiratory Rate Blood Pressure Pulse Oximetry 92 L 01/24/18 11:00 01/24/18 11:01 01/24/18 12:00 Temperature 98.1 F Pulse Rate 91 H 91 H Respiratory Rate 16 18 Blood Pressure 139/82 Pulse Oximetry 95 01/24/18 13:00 01/24/18 14:00 01/24/18 14:54 Temperature Pulse Rate 85 92 H Respiratory Rate 16 Blood Pressure Pulse Oximetry Intake & Output 01/23/18 01/24/18 01/24/18 18:59 06:59 18:59 Intake Total 960 / 960 740 / 740 Output Total 600 / 600 875 / 875 Balance 360 / 360 -135 / -135 Intake: IV 500 / 500 Heparin/D5W 25,000 U/250 mL 25, 250 / 250 000 unit In 250 ml @ 1,800 UNITS/HR 18 mls/hr IV.CONT TITRATE PRN Rx#:[id number] Oral 960 / 960 240 / 240 Output: Urine 600 / 600 875 / 875 Other: Date of Last Bowel Movement 01/22/18 01/22/18 01/22/18 # Bowel Movements 1 Results - Labs CBC & Chem 7: 01/23/18 03:35 01/22/18 01:16 Labs: Laboratory Results - last 24 hr 01/23/18 01/23/18 01/24/18 16:57 20:01 01:41 APTT 24.4 D POC Glucose 270 H 312 H 01/24/18 01/24/18 07:50 13:00 APTT 42.1 H D POC Glucose 201 H Caprini VTE Risk Assessment Caprini Risk Assessment Model: Point Value = 1 Point Value = 2 Point Value = 3 Point Value = 5 Age 41-60 Minor surgery BMI > 25 kg/m2 Swollen legs Varicose veins or History of unexplained or recurrent spontaneous Oral contraceptives or hormone replacement Sepsis (< 1 month) Serious lung disease, including pneumonia (< 1 month) Abnormal pulmonary function Acute myocardial infarction Congestive heart failure (< 1 month) History of inflammatory bowel disease Medical patient at bed rest Age 61-74 Arthroscopic surgery Major open surgery (> 45 min) Laparoscopic surgery (> 45 min) Malignancy Confined to bed (> 72 hours) Immobilizing plaster cast Central venous access Age >= 75 History of VTE Family history of VTE Factor V Leiden Prothrombin [id number] Lupus anticoagulant Anticardiolipin antibodies Elevated serum homocysteine Heparin-induced thrombocytopenia Other congenital or acquired thrombophilia Stroke (< 1 month) Elective arthroplasty Hip, pelvis, or leg fracture Acute spinal cord injury (< 1 month) Prophylaxis Regimen: Total Risk Factor Score Risk Level Prophylaxis Regimen 0-1 Low Early ambulation 2 Moderate Order ONE of the following: *Sequential Compression Device (SCD) *Heparin 5000 units SQ BID 3-4 Higher Order ONE of the following medications: *Heparin 5000 units SQ TID *Enoxaparin/Lovenox 40 mg SQ daily (WT < 150 kg, CrCl > 30 mL/min) *Enoxaparin/Lovenox 30 mg SQ daily (WT < 150 kg, CrCl > 10-29 mL/min) *Enoxaparin/Lovenox 30 mg SQ BID (WT < 150 kg, CrCl > 30 mL/min) AND/OR *Sequential Compression Device (SCD) 5 or more Highest Order ONE of the following medications: *Heparin 5000 units SQ TID (Preferred with Epidurals) *Enoxaparin/Lovenox 40 mg SQ daily (WT < 150 kg, CrCl > 30 mL/min) *Enoxaparin/Lovenox 30 mg SQ daily (WT < 150 kg, CrCl > 10-29 mL/min) *Enoxaparin/Lovenox 30 mg SQ BID (WT < 150 kg, CrCl > 30 mL/min) AND *Sequential Compression Device (SCD) Assessment and Plan - Assessment (1) Acute pulmonary embolism Code(s): I26.99 - Other pulmonary embolism without acute cor pulmonale Status : Acute (2) DVT (deep venous thrombosis) Code(s): I82.409 - Acute embolism and thrombosis of unspecified deep veins of unspecified lower extremity Status: Acute - Attending Attestation Patient examined. Assessment and plan formulated with Minerva BARRIGA I agree with the above. <Minerva Marino W - Last Filed: 01/23/18 17:46> (1) Acute pulmonary embolism Qualifiers: Pulmonary embolism type: other (2) DVT (deep venous thrombosis) Qualifiers: DVT location: lower extremity Affected thrombotic vein of extremity: unspecified lower extremity proximal vein Chronicity: acute Laterality: left Qualified Code(s): I82.4Y2 - Acute embolism and thrombosis of unspecified deep veins of left proximal lower extremity <Babak Martinez - Last Filed: 01/24/18 15:05> (1) Acute pulmonary embolism Qualifiers: Pulmonary embolism type: other (2) DVT (deep venous thrombosis) Qualifiers: DVT location: lower extremity Affected thrombotic vein of extremity: unspecified lower extremity proximal vein Chronicity: acute Laterality: left Qualified Code(s): I82.4Y2 - Acute embolism and thrombosis of unspecified deep veins of left proximal lower extremity
[2018-01-22] MEDS ORDERED: Heparin 10,000 UNITS/10 ML Vial (for IV use) ONE (10:19)
--- NOTE | 2018-01-22 10:24 | ECG ---
Date Performed: 01/21/2018 Time Performed: 18:35:25 PTAGE: 57 years EKG: Sinus rhythm INDETERMINATE AXIS RIGHT BUNDLE BRANCH BLOCK ABNORMAL ECG Since the PREVIOUS TRACING , no significant change noted PREVIOUS TRACIN06/01/2016 12.57 DOCTOR: Lashaun Moreno Interpretating Date/Time 01/22/2018 10:20:41
[2018-01-22] MEDS: Heparin Drip 25,000 UNIT/250 ML BAG IV.CONT PRN (10:28)
[2018-01-22] MEDS: Insulin NovoLOG Aspart Correctional Sugar Inj SQ SCH ×4 (10:59→21:03)
[2018-01-22] MEDS: Enoxaparin Inj 100 MG/ML Syringe SQ SCH ×2 (12:12→20:38)
[2018-01-22 13:36] LABS: Bilirubin,Urine Negative (Negative); Clarity,Urine Clear (Clear); Color,Urine Yellow (Yellw/Straw); Glucose,Urine (UA) 500 or Greater mg/dL (Negative); Leukocyte Esterase,Urine Negative (Negative); Nitrite,Urine Negative (Negative); Specific Gravity,Urine 1.022 (1.002-1.035); Urobilinogen,Urine 4 or Greater mg/dL (Less than 2)
[2018-01-22] MEDS ORDERED: HYDROmorphone PF Inj 2 MG/ML Vial IV.PUSH ONE (19:00)
[2018-01-22] MEDS: Gabapentin 100 MG Capsule PO SCH (20:38)
[2018-01-22] MEDS: Temazepam 15 MG Capsule PO PRN (23:12)
[2018-01-23 03:48] LABS: Hematocrit 39.4 % (39.0-51.0); Hemoglobin 13.3 gm/dL (13.0-17.0); Mean Corpuscular HGB Conc 33.7 % (32.0-36.0); Mean Corpuscular Hemoglobin 31.3 pg (27.0-34.0); Mean Corpuscular Volume 92.7 fL (80.0-100.0); Platelet Count 151 th/mm3 (150-450); Red Blood Count 4.25 mil/mm3 (4.50-5.90); Red Cell Distribution Width 27.9 % (11.6-17.2)
[2018-01-23] MEDS: Insulin NovoLOG Aspart Correctional Sugar Inj SQ SCH ×4 (09:10→23:22)
[2018-01-23] MEDS: Enoxaparin Inj 100 MG/ML Syringe SQ SCH (09:11)
[2018-01-23] MEDS: Senna/Docusate Sodium 8.6/50 MG Tablet PO SCH ×2 (09:12→23:13)
[2018-01-23] MEDS: Gabapentin 100 MG Capsule PO SCH ×2 (09:12→23:28)
[2018-01-23] MEDS: HYDROmorphone PF Inj 2 MG/ML Vial IV.PUSH PRN (09:13)
[2018-01-23] MEDS ORDERED: Naloxone Inj 0.4 MG/ML Vial IV.PUSH PRN (13:16)
[2018-01-23] MEDS ORDERED: HYDROmorphone PF Inj 1 MG/ML Ampul IV.PUSH ONE (13:18)
[2018-01-23] MEDS: HYDROmorphone PCA Inj 6 MG/30 ML PCA.VIAL PCA PRN ×2 (15:14→23:25)
--- NOTE | 2018-01-23 17:07 | P.PNIM ---
Subjective Interval history: Follow up: Acute extensive pulmonary emboli bilaterally, left lower extremity DVT and uncontrolled pain Patient continues to c/o pain despite increase in pain medication Physical Exam Vital signs: Vital Signs 01/22/18 19:00 01/22/18 20:00 01/22/18 20:49 Temperature 98.9 F Pulse Rate 101 H 102 H Respiratory Rate 18 18 Blood Pressure 138/88 Pulse Oximetry 96 01/22/18 22:00 01/22/18 23:00 01/23/18 00:00 Temperature 98.0 F Pulse Rate 102 H 99 H 106 H Respiratory Rate 18 Blood Pressure 139/90 Pulse Oximetry 93 L 01/23/18 01:00 01/23/18 02:00 01/23/18 03:00 Temperature Pulse Rate 96 H 94 H 97 H Respiratory Rate Blood Pressure Pulse Oximetry 01/23/18 04:00 01/23/18 05:00 01/23/18 06:00 Temperature 97.9 F Pulse Rate 93 H 94 H 94 H Respiratory Rate 18 Blood Pressure 139/82 Pulse Oximetry 94 L 01/23/18 07:00 Temperature Pulse Rate Respiratory Rate 18 Blood Pressure Pulse Oximetry Intake & Output 01/22/18 01/23/18 01/23/18 18:59 06:59 18:59 Intake Total 250 / 250 960 / 960 Output Total 1200 / 1200 600 / 600 Balance -950 / -950 360 / 360 Weight 103.7 kg Intake: IV 250 / 250 Heparin/D5W 25,000 U/250 mL 25, 250 / 250 000 unit In 250 ml @ Per Protocol IV.CONT TITRATE PRN Rx #:[id number] Oral 960 / 960 Output: Urine 1200 / 1200 600 / 600 Other: Date of Last Bowel Movement 01/22/18 01/22/18 01/22/18 # Bowel Movements 1 Narrative: GENERAL: This is a well-nourished, well-developed patient, in no apparent distress. CARDIOVASCULAR: Regular rate and rhythm RESPIRATORY: Clear to auscultation. Breath sounds equal bilaterally. GASTROINTESTINAL: Abdomen soft, non-tender, nondistended. Normal active bowel sounds MUSCULOSKELETAL: Extremities without clubbing, cyanosis. LLE nonpitting edema NEURO: Alert & Oriented x4 to person, place, time, situation. Moves all ext x4 Results - Labs CBC & Chem 7: 01/23/18 03:35 01/22/18 01:16 Laboratory Results - last 24 hr 01/22/18 01/22/18 01/23/18 17:08 20:37 03:35 WBC 5.0 RBC 4.25 L Hgb 13.3 Hct 39.4 MCV 92.7 MCH 31.3 MCHC 33.7 RDW 27.9 H Plt Count 151 MPV 7.0 POC Glucose 200 H 336 H 01/23/18 01/23/18 01/23/18 07:48 12:04 16:57 WBC RBC Hgb Hct MCV MCH MCHC RDW Plt Count MPV POC Glucose 283 H 330 H 270 H Assessment and Plan - Assessment (1) Acute pulmonary embolism Code(s): I26.99 - Other pulmonary embolism without acute cor pulmonale Status : Acute Plan: Mr. Nixon is a pleasant 57 y/o WM with stage IV adenocarcinoma of rectal origin, oligometastatic disease to the liver currently being treated with neoadjuvant therapy consisting of Xeloda and radiation, diabetes mellitus, HTN, hyperlipidemia, ELIAZAR, secondary polycythemia, and history of DVT in his right leg 2012. Patient presented to the ER 01/21/18 with presents with left leg pain and swelling with intermittent shortness of breath. Acute extensive pulmonary emboli bilaterally Left lower extremity DVT Left lower extremity ultrasound reveals extensive DVT in the left lower extremity thrombus with occlusive thrombus in the common femoral vein, superficial femoral vein, popliteal vein and down to the distal posterior tibial vein. CT angiogram of the chest reviewed conclusion examination is positive for fairly extensive bilateral pulmonary disease embolic disease. Patient was started on heparin drip and admitted to the hospital. Dr. Martinez discussed case with Dr. 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 Assessment and plan formulated with Minerva Marino PA-C. I agree with the above. (1) Acute pulmonary embolism Qualifiers: Pulmonary embolism type: other (2) DVT (deep venous thrombosis) Qualifiers: DVT location: lower extremity Affected thrombotic vein of extremity: unspecified lower extremity proximal vein Chronicity: acute Laterality: left Qualified Code(s): I82.4Y2 - Acute embolism and thrombosis of unspecified deep veins of left proximal lower extremity
[2018-01-23] MEDS: CAPECITABINE 500 MG PO SCH (23:13)
[2018-01-24] MEDS ORDERED: Heparin Drip 25,000 UNIT/250 ML BAG IV.CONT PRN (01:22)
[2018-01-24] MEDS: Heparin Drip 25,000 UNIT/250 ML BAG IV.CONT PRN (01:50)
--- NOTE | 2018-01-24 05:53 | MB ---
cc: Galdino Hernandez MD DATE: 01/23/2018 REASON FOR CONSULTATION: The patient with a diagnosis of colorectal cancer, who was admitted to the hospital with left lower extremity pain and was found to have a DVT and also pulmonary embolism. HISTORY OF PRESENT ILLNESS: This is a 57-year-old male with a diagnosis of stage IV adenocarcinoma of rectal origin. He has oligometastatic disease to the liver. He has 3 distinct lesions in his liver. These lesions were biopsied, and they proved to be metastatic disease. He developed GI bleeding in 06/2017. He also had irritation of his anal area. He was seen by a corporate operations compliance manager as well as a rectal surgeon. He underwent colonoscopy. A large anorectal mass was found in the lower vault of the anus. This was approximately 5-6 cm. The biopsy results confirmed carcinoma. This was a moderately differentiated adenocarcinoma. The patient has received concurrent chemotherapy and radiation treatments. He is now on single-agent Xeloda. Restaging studies are underway. An endoscopic ultrasound and a PET scan was ordered for this patient. He is also following with the surgical oncologist at [facility] in [place]. The patient presented to the oncology clinic with left lower extremity pain. He was also having significant amount of pain in his bilateral feet. Recently, the Xeloda was held because of the pain in his feet. This patient also has a history of polycythemia and has required phlebotomy treatments in the past. The patient was sent to the emergency department. A Doppler ultrasound of the lower extremities was completed which showed extensive DVT involving the left lower extremity. Occlusive thrombus was seen in the common femoral vein, superficial femoral vein, popliteal vein, and down to the distal posterior tibial vein. CT angiogram of the chest was also completed on admission, which showed extensive bilateral pulmonary emboli. The patient was admitted to the hospital, and he was started on heparin GTT. This has been converted to Lovenox. The patient is still complaining of significant amount of pain in his left lower extremity. He was started on oxycodone 20 mg q. 4 hours and IV Dilaudid 1 mg for breakthrough pain. However, he states that he is still having a significant amount of pain, and the effect of pain medication does not last more than 3 hours. He is unable to walk because of the lower extremity pain. REVIEW OF SYSTEMS: A comprehensive review of system was completed which was negative except as described in the HPI. PAST MEDICAL HISTORY: Adenocarcinoma of the anal canal and rectum. He has metastatic disease to the liver. He is currently on Xeloda. History of diabetes, hypertension, hypertriglyceridemia, Vianey thyroiditis, obstructive sleep apnea, secondary polycythemia, history of lower extremity DVT in 2012. PAST SURGICAL HISTORY: Right knee arthroscopy, biopsy of the anorectal mass. FAMILY HISTORY: Reviewed and is noncontributory to this visit. SOCIAL HISTORY: He admits to smoking 1 pack of cigarettes per day. He denies any alcohol abuse. No illicit drug use. He is unemployed. MEDICATIONS: Tylenol 650 p.o. every 4 hours p.r.n., milk of magnesia 30 mL q. 12 hours, bisacodyl p.r.n., gabapentin 100 mg p.o. b.i.d., Zofran 4 mg IV q. 6 hours p.r.n., Lovenox. ALLERGIES: WARFARIN. LABORATORY DATA: WBC 5, hemoglobin 13.3, platelet count 151. Coags: PTT is 83.9. Serum chemistries: Sodium is 137, potassium 4.2, CO2 of 22, BUN is 12, creatinine is 0.98. GFR is 79, total bilirubin is 0.7, AST is 12, ALT is 16, total protein is 7, albumin is 3.6. Labs from 01/22/2018 show sodium of 137, potassium 3.9, chloride 100, BUN 11, creatinine 0.84, calcium 8.7. Total bilirubin 0.8, AST is 11, ALT is 15, alkaline phosphatase is 137, total protein 6.2, albumin 3. IMAGING: CT angiogram of the chest and Doppler ultrasound of the lower extremity was reviewed. ASSESSMENT AND PLAN: This is a 57-year-old male who has an adenocarcinoma of the anal canal extending into the rectum. He has metastasis to the liver. He has undergone concurrent chemotherapy and radiation treatments. He is currently on single-agent Xeloda. He presented to the oncology clinic with left lower extremity swelling. In the emergency room, he was found to have an extensive deep vein thrombosis in the lower extremity. He also has bilateral pulmonary emboli. 1. Extensive deep venous thrombosis of the left lower extremity and bilateral pulmonary emboli in the setting of malignancy. This patient is currently on Lovenox. He is having significant amount of pain in his left lower extremity. I would recommend consulting IR to see if this patient will benefit from direct thrombolytic therapy to the left lower extremity. The patient can be converted to heparin overnight if he is not going to get this procedure today. He is having significant amount of pain, and the current pain medications are not adequate. 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 2. Uncontrolled pain. Plan as stated above. 3. Anal adenocarcinoma extending into the rectum. He is currently being restaged in the outpatient setting prior to his planned surgery. We will ask Dr. Kiser to see this patient, whether this endoscopic ultrasound can be completed while he is in the hospital. We will restart his Xeloda. He will take Xeloda 1500 mg p.o. b.i.d. 4. History of polycythemia. His hematocrit is 39.4. He does not need any intervention at this time. 5. Polycythemia was secondary to tobacco abuse and possible underlying obstructive sleep apnea. Thank you for allowing me to participate in the care of this patient. I will continue to follow this patient along. This case was discussed with Dr. Martinez. MD FELICITA Edouard/amee/nito , 11:58 PM , 12:14 AM
[2018-01-24] MEDS ORDERED: Heparin 10,000 UNITS/10 ML Vial (for IV use) IV.PUSH PRN ×2 (07:23→07:29)
[2018-01-24] MEDS: Insulin NovoLOG Aspart Correctional Sugar Inj SQ SCH ×4 (07:52→21:18)
[2018-01-24] MEDS: Gabapentin 100 MG Capsule PO SCH ×2 (08:00→21:17)
[2018-01-24] MEDS: CAPECITABINE 500 MG PO SCH ×2 (08:00→21:27)
[2018-01-24] MEDS: Senna/Docusate Sodium 8.6/50 MG Tablet PO SCH ×3 (08:00→21:39)
[2018-01-24] MEDS: HYDROmorphone PCA Inj 6 MG/30 ML PCA.VIAL PCA PRN ×2 (11:07→18:49)
--- NOTE | 2018-01-24 12:01 | P.PNONC ---
Subjective Interval history: Patient lying in bed, in no acute distress. His mother is at the bedside. He is currently on a Dilaudid LINEN CHECKER pump. He is awaiting interventional radiology for thrombectomy today. He reports that his pain is greater in the left leg and is moderately controlled with the Dilaudid LINEN CHECKER pump. He denies any shortness of breath. Objective Vital Signs/Intake & Output: Vital Signs 01/23/18 12:00 01/23/18 13:00 01/23/18 14:00 Temperature 97.1 F L Pulse Rate 102 H 102 H 96 H Respiratory Rate 18 Blood Pressure 147/98 H Pulse Oximetry 96 01/23/18 15:00 01/23/18 16:00 01/23/18 17:00 Temperature 97.6 F Pulse Rate 104 H 88 88 Respiratory Rate 18 Blood Pressure 130/72 Pulse Oximetry 97 01/23/18 17:44 01/23/18 18:00 01/23/18 18:55 Temperature Pulse Rate 104 H 99 H Respiratory Rate 16 Blood Pressure Pulse Oximetry 01/23/18 19:55 01/23/18 22:00 01/23/18 23:11 Temperature Pulse Rate 84 Respiratory Rate 16 16 Blood Pressure Pulse Oximetry 01/24/18 00:00 01/24/18 00:04 01/24/18 01:00 Temperature Pulse Rate 90 89 96 H Respiratory Rate 18 Blood Pressure 125/70 Pulse Oximetry 94 L 01/24/18 02:00 01/24/18 02:12 01/24/18 03:30 Temperature Pulse Rate 98 H 88 Respiratory Rate 18 Blood Pressure Pulse Oximetry 01/24/18 04:00 01/24/18 04:34 01/24/18 07:00 Temperature Pulse Rate 90 80 Respiratory Rate 16 16 Blood Pressure 140/75 Pulse Oximetry 95 01/24/18 08:00 01/24/18 08:13 01/24/18 09:00 Temperature 98.2 F Pulse Rate 95 H 80 Respiratory Rate 16 20 Blood Pressure 127/83 Pulse Oximetry 95 01/24/18 09:54 01/24/18 10:08 01/24/18 10:09 Temperature Pulse Rate 104 H 98 H 94 H Respiratory Rate 16 Blood Pressure 129/95 H Pulse Oximetry 95 01/24/18 10:36 01/24/18 11:00 01/24/18 11:01 Temperature Pulse Rate 91 H Respiratory Rate 16 Blood Pressure Pulse Oximetry 92 L Intake & Output 01/23/18 01/24/18 01/24/18 18:59 06:59 18:59 Intake Total 960 / 960 740 / 740 Output Total 600 / 600 875 / 875 Balance 360 / 360 -135 / -135 Intake: IV 500 / 500 Heparin/D5W 25,000 U/250 mL 25, 250 / 250 000 unit In 250 ml @ 1,800 UNITS/HR 18 mls/hr IV.CONT TITRATE PRN Rx#:[id number] Oral 960 / 960 240 / 240 Output: Urine 600 / 600 875 / 875 Other: Date of Last Bowel Movement 01/22/18 01/22/18 01/22/18 # Bowel Movements 1 Result Diagrams: 01/23/18 03:35 01/22/18 01:16 Laboratory Results: Laboratory Results - last 24 hr 01/23/18 01/23/18 01/23/18 12:04 16:57 20:01 APTT POC Glucose 330 H 270 H 312 H 01/24/18 01/24/18 01:41 07:50 APTT 24.4 D POC Glucose 201 H Medications: Active Medications Generic Name Dose Route Start Last Admin Trade Name Freq PRN Reason Stop Dose Admin Gabapentin 100 mg 01/22/18 21:00 01/24/18 08:00 Neurontin PO 100 mg BID JAZMINE Administration Hydromorphone/Sodium Chloride 6 mg in 30 mls @ 0 mls/hr 01/23/18 13:18 11:07 Dilaudid [employer]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 LINEN CHECKER 0 mls/hr UNSCH PRN Administration per LINEN CHECKER parameters 0 MG/HR Heparin Sodium/Dextrose 25,000 unit in 250 mls @ 18 mls/hr 01/24/18 01:30 09/08 06:54 Heparin/D5w 25,000 U/250 Ml IV.CONT Infused TITRATE PRN Titration Per Protocol Protocol 1,800 UNITS/HR Insulin Aspart 0 unit 01/22/18 08:00 01/24/18 11:02 Novolog Insulin Correctional Sugar Inj SQ Not Given ACHS JAZMINE Protocol Oxycodone HCl 30 mg 01/23/18 18:15 01/24/18 10:34 Roxicodone PO 30 mg Q4H JAZMINE Administration Pt Own: Capecitabine 0 each 01/23/18 21:00 01/24/18 08:00 500 Mg PO 3 each BID JAZMINE Administration Senna/Docusate Sodium 1 tab 01/22/18 09:00 01/24/18 08:00 Bekah-Colace PO Not Given BID JAZMINE Sodium Chloride 2 ml 01/21/18 16:56 01/21/18 19:08 Ns Flush IV.FLUSH 2 ml UNSCH PRN Administration FLUSH AFTER USING IV ACCESS Temazepam 15 mg 01/21/18 21:33 01/22/18 23:12 Restoril PO 15 mg HS PRN Administration INSOMNIA Objective Remarks: GENERAL: Well-nourished, well-developed middle-aged male patient, lying in bed. In no acute distress. SKIN: Warm and dry. HEAD: Normocephalic. EYES: No scleral icterus. No injection or drainage. NECK: Supple, trachea midline. CARDIOVASCULAR: Regular rate and rhythm without murmurs. RESPIRATORY: Breath sounds clear, equal bilaterally. No accessory muscle use. GASTROINTESTINAL: Abdomen soft, non-tender, nondistended. EXTREMITIES: No cyanosis, or edema. MUSCULOSKELETAL: Adequate muscle tone. NEUROLOGICAL: No obvious focal deficit. Awake, alert, and oriented x3. PSYCHIATRIC: Appropriate mood and affect; insight and judgment normal. 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 He has metastasis to the liver. He has undergone concurrent chemotherapy and radiation treatments. He is currently on single- agent Xeloda. He presented to the oncology clinic with left lower extremity swelling. In the emergency room, he was found to have an extensive deep vein thrombosis in the lower extremity. He also has bilateral pulmonary emboli. Plan: 1. Patient awaiting IR for thrombectomy. 2. Currently on heparin drip, no obvious signs of bleeding. Continue to monitor for bleeding. 3. Metastatic adenocarcinoma. Patient to continue Xeloda 1500 mg twice daily. 4. Continue supportive care. - Attending Statement The exam, history, and the medical decision-making described in the above note were completed with the assistance of the mid-level provider. I reviewed and agree with the findings presented. I attest that I had a [id number] encounter with the patient on the same day, and personally performed and documented my assessment and findings in the medical record. IR thinks that thrombectomy not advisable since he has b/l pulmonary emboli continue heparin pain control continue Xeloda if remains here till saturday, in the interest of saving time, will ask Dr. Kiser to see patient for EUS, which was scheduled outpatient
--- NOTE | 2018-01-24 15:11 | P.PNIM ---
Subjective Interval history: left leg remains painful but pain is better controlled on current narcotic dosing. Physical Exam Vital signs: 01/24/18 11:00 01/24/18 11:01 01/24/18 12:00 Temperature 98.1 F Pulse Rate 91 H 91 H Respiratory Rate 16 18 Blood Pressure 139/82 Pulse Oximetry 95 01/24/18 13:00 01/24/18 14:00 01/24/18 14:54 Temperature Pulse Rate 85 92 H Respiratory Rate 16 Blood Pressure Pulse Oximetry Narrative: GENERAL: This is a well-nourished, well-developed patient, in no apparent distress. CARDIOVASCULAR: Regular rate and rhythm RESPIRATORY: Clear to auscultation. Breath sounds equal bilaterally. GASTROINTESTINAL: Abdomen soft, non-tender, nondistended. Normal active bowel sounds MUSCULOSKELETAL: palpable cord behind let knee NEURO: Alert & Oriented x4 to person, place, time, situation. Moves all ext x4 Results - Labs CBC & Chem 7: 01/25/18 08:24 01/25/18 08:24 Laboratory Results - last 24 hr 01/23/18 01/23/18 01/24/18 16:57 20:01 01:41 APTT 24.4 D POC Glucose 270 H 312 H 01/24/18 01/24/18 07:50 13:00 APTT 42.1 H D POC Glucose 201 H Assessment and Plan - Assessment (1) Acute pulmonary embolism Code(s): I26.99 - Other pulmonary embolism without acute cor pulmonale Status : Acute Plan: Mr. Nixon is a pleasant 57 y/o WM with stage IV adenocarcinoma of rectal origin, oligometastatic disease to the liver currently being treated with neoadjuvant therapy consisting of Xeloda and radiation, diabetes mellitus, HTN, hyperlipidemia, ELIAZAR, secondary polycythemia, and history of DVT in his right leg 2012. Patient presented to the ER 01/21/18 with presents with left leg pain and swelling with intermittent shortness of breath. Acute extensive pulmonary emboli bilaterally Left lower extremity DVT Left lower extremity ultrasound reveals extensive DVT in the left lower extremity thrombus with occlusive thrombus in the common femoral vein, superficial femoral vein, popliteal vein and down to the distal posterior tibial vein. CT angiogram of the chest reviewed conclusion examination is positive for fairly extensive bilateral pulmonary disease embolic disease. Patient was started on heparin drip and admitted to the hospital. - case d/w Dr. Hernandez (01/24/18). Continue IV heparin - Case d/w IR, Dr. Kelly. Pt has b/l PE and NO limb ischemia. NO thrombolysis at this time. 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 ELIAZAR (obstructive sleep apnea) - Pt does not use CPAP Hyperlipidemia - Home meds continued (2) DVT (deep venous thrombosis) Code(s): I82.409 - Acute embolism and thrombosis of unspecified deep veins of unspecified lower extremity Status: Acute (1) Acute pulmonary embolism Qualifiers: Pulmonary embolism type: other (2) DVT (deep venous thrombosis) Qualifiers: DVT location: lower extremity Affected thrombotic vein of extremity: unspecified lower extremity proximal vein Chronicity: acute Laterality: left Qualified Code(s): I82.4Y2 - Acute embolism and thrombosis of unspecified deep veins of left proximal lower extremity
[2018-01-24] MEDS: Insulin Detemir Inj 1,000 UNIT/10 ML Vial SQ SCH (21:24)
[2018-01-25] MEDS: Heparin Drip 25,000 UNIT/250 ML BAG IV.CONT PRN ×2 (03:28→17:29)
[2018-01-25] MEDS: HYDROmorphone PCA Inj 6 MG/30 ML PCA.VIAL PCA PRN ×3 (03:29→19:22)
[2018-01-25] MEDS: Insulin NovoLOG Aspart Correctional Sugar Inj SQ SCH ×4 (08:39→21:19)
[2018-01-25] MEDS: Gabapentin 100 MG Capsule PO SCH ×2 (08:40→21:15)
[2018-01-25] MEDS: Insulin Detemir Inj 1,000 UNIT/10 ML Vial SQ SCH (08:40)
[2018-01-25] MEDS: CAPECITABINE 500 MG PO SCH ×2 (08:40→21:15)
[2018-01-25] MEDS: Senna/Docusate Sodium 8.6/50 MG Tablet PO SCH ×2 (08:41→21:43)
[2018-01-25 09:40] LABS: Baso # (Auto) 0.1 th/mm3 (0.0-0.2); Baso % (Auto) 1.1 % (0.0-2.0); Eos # (Auto) 0.4 th/mm3 (0.0-0.4); Eos % (Auto) 8.6 % (0.0-4.0); Hematocrit 40.4 % (39.0-51.0); Hemoglobin 13.8 gm/dL (13.0-17.0); Lymph # (Auto) 0.4 th/mm3 (1.0-4.8); Mean Corpuscular HGB Conc 34.1 % (32.0-36.0); Mean Corpuscular Hemoglobin 31.5 pg (27.0-34.0); Mean Corpuscular Volume 92.5 fL (80.0-100.0); Mean Platelet Volume 7.1 fL (7.0-11.0); Mono # (Auto) 0.7 th/mm3 (0.0-0.9); Mono % (Auto) 12.5 % (0.0-8.0); Neut # (Auto) 3.7 th/mm3 (1.8-7.7); Neut % (Auto) 69.8 % (16.0-70.0); Platelet Count 166 th/mm3 (150-450); Red Blood Count 4.37 mil/mm3 (4.50-5.90); Red Cell Distribution Width 27.3 % (11.6-17.2); White Blood Count 5.3 th/mm3 (4.0-11.0)
[2018-01-25 09:49] LABS: Activated Partial Thrombo Time 47.4 sec (24.3-30.1); INR 1.2 Ratio; Prothrombin Time 12.1 sec (9.8-11.6)
[2018-01-25 10:10] LABS: Albumin 2.9 g/dL (3.4-5.0); Anion Gap 11 meq/L (5-15); Aspartate Aminotransferase 18 U/L (15-37); Blood Urea Nitrogen 8 mg/dL (7-18); Calcium 9.3 mg/dL (8.5-10.1); Carbon Dioxide 25.2 meq/L (21.0-32.0); Chloride 101 meq/L (98-107); Glomerular Filtration Rate Greater Than 89 mL/min (>89); Glucose,Random 168 mg/dL (74-106); Potassium 4.2 meq/L (3.5-5.1); Sodium 137 meq/L (136-145)
[2018-01-25 10:14] LABS: Alanine Aminotransferase 15 U/L (12-78); Alkaline Phosphatase 142 U/L (45-117); Total Protein 6.3 g/dL (6.4-8.2)
[2018-01-25 10:19] LABS: Ovalocytes 1+
[2018-01-25 10:20] LABS: Platelet Estimate Normal (Normal); Platelet Morphology Normal (Normal)
--- NOTE | 2018-01-25 10:39 | P.PNONC ---
Subjective Interval history: Patient lying in bed, awake and alert. In no acute distress. Reports continued pain in left leg. Currently on Dilaudid PINBALL MACHINE REPAIRER pump, appears more comfortable than yesterday. He denies any shortness of breath. He reports that he is unable to ambulate due to the pain in his left leg. He is able to stand for a short amount of time to use the urinal. Objective Vital Signs/Intake & Output: Vital Signs 01/24/18 10:36 01/24/18 11:00 01/24/18 11:01 Temperature Pulse Rate 91 H Respiratory Rate 16 Blood Pressure Pulse Oximetry 92 L 01/24/18 12:00 01/24/18 13:00 01/24/18 14:00 Temperature 98.1 F Pulse Rate 91 H 85 92 H Respiratory Rate 18 Blood Pressure 139/82 Pulse Oximetry 95 01/24/18 14:54 01/24/18 15:00 01/24/18 16:00 Temperature 98.2 F Pulse Rate 90 101 H Respiratory Rate 16 18 Blood Pressure 139/84 Pulse Oximetry 93 L 01/24/18 17:00 01/24/18 17:43 01/24/18 20:00 Temperature 98.8 F Pulse Rate 90 88 93 H Respiratory Rate Blood Pressure 130/81 Pulse Oximetry 98 01/24/18 21:00 01/24/18 22:00 01/24/18 23:00 Temperature Pulse Rate 93 H 93 H 93 H Respiratory Rate Blood Pressure Pulse Oximetry 01/25/18 00:00 01/25/18 01:00 01/25/18 02:00 Temperature 97.6 F Pulse Rate 96 H 90 100 H Respiratory Rate Blood Pressure Pulse Oximetry 01/25/18 03:00 01/25/18 04:00 01/25/18 06:00 Temperature 98.2 F Pulse Rate 93 H 94 H 88 Respiratory Rate 16 Blood Pressure 132/82 Pulse Oximetry 94 L 01/25/18 07:00 01/25/18 08:00 01/25/18 08:13 Temperature 97.9 F Pulse Rate 81 90 Respiratory Rate 16 16 Blood Pressure 141/89 H Pulse Oximetry 93 L 01/25/18 08:31 01/25/18 09:00 Temperature Pulse Rate 92 H Respiratory Rate 16 Blood Pressure Pulse Oximetry Intake & Output 01/24/18 01/25/18 01/25/18 18:59 06:59 18:59 Intake Total 600 / 600 450 / 450 Output Total 950 / 950 1625 / 1625 Balance -350 / -350 -1175 / -1175 Weight 105.6 kg Intake: Oral 600 / 600 450 / 450 Output: Urine 950 / 950 1625 / 1625 Other: Date of Last Bowel Movement 01/22/18 01/22/18 # Bowel Movements 0 Result Diagrams: 01/25/18 08:24 01/25/18 08:24 Laboratory Results: Laboratory Results - last 24 hr 01/24/18 01/24/18 01/24/18 13:00 15:58 20:53 WBC RBC Hgb Hct MCV MCH MCHC RDW Plt Count MPV Prelim Diff (Auto) Neut % (Auto) Lymph % (Auto) Jewell % (Auto) Eos % (Auto) Baso % (Auto) Neut # (Auto) Lymph # (Auto) Jewell # (Auto) Eos # (Auto) Baso # (Auto) WBC Differential Diff Scan Differential Comment Platelet Estimate Platelet Morphology Ovalocytes PT INR APTT 42.1 H D Sodium Potassium Chloride Carbon Dioxide Anion Gap BUN Creatinine Estimated GFR POC Glucose 267 H 296 H Random Glucose Calcium Total Bilirubin AST ALT Alkaline Phosphatase Total Protein Albumin 01/24/18 01/25/18 01/25/18 21:07 08:21 08:24 WBC 5.3 RBC 4.37 L Hgb 13.8 Hct 40.4 MCV 92.5 MCH 31.5 MCHC 34.1 RDW 27.3 H Plt Count 166 MPV 7.1 Prelim Diff (Auto) Slide review pending Neut % (Auto) 69.8 Lymph % (Auto) 8.0 L Jewell % (Auto) 12.5 H Eos % (Auto) 8.6 H Baso % (Auto) 1.1 Neut # (Auto) 3.7 Lymph # (Auto) 0.4 L Jewell # (Auto) 0.7 Eos # (Auto) 0.4 Baso # (Auto) 0.1 WBC Differential . Diff Scan Auto diff confirmed Differential Comment . Platelet Estimate Normal Platelet Morphology Normal Ovalocytes 1+ H PT INR APTT 40.3 H Sodium Potassium Chloride Carbon Dioxide Anion Gap BUN Creatinine Estimated GFR POC Glucose 182 H Random Glucose Calcium Total Bilirubin AST ALT Alkaline Phosphatase Total Protein Albumin 01/25/18 01/25/18 08:24 08:24 WBC RBC Hgb Hct MCV MCH MCHC RDW Plt Count MPV Prelim Diff (Auto) Neut % (Auto) Lymph % (Auto) Jewell % (Auto) Eos % (Auto) Baso % (Auto) Neut # (Auto) Lymph # (Auto) Jewell # (Auto) Eos # (Auto) Baso # (Auto) WBC Differential Diff Scan Differential Comment Platelet Estimate Platelet Morphology Ovalocytes PT 12.1 H INR 1.2 APTT 47.4 H Sodium 137 Potassium 4.2 Chloride 101 Carbon Dioxide 25.2 Anion Gap 11 BUN 8 Creatinine 0.77 Estimated GFR Greater than 89 POC Glucose Random Glucose 168 H Calcium 9.3 Total Bilirubin 0.6 AST 18 ALT 15 Alkaline Phosphatase 142 H Total Protein 6.3 L Albumin 2.9 L Medications: Active Medications Generic Name Dose Route Start Last Admin Trade Name Freq PRN Reason Stop Dose Admin Artificial Tears 1 applicatio 01/24/18 18:00 01/25/18 08:40 Eucerin Cream TOPICAL 1 applicatio QID JAZMINE Administration Gabapentin 100 mg 01/22/18 21:00 01/25/18 08:40 Neurontin PO 100 mg BID JAZMINE Administration Hydromorphone/Sodium Chloride 6 mg in 30 mls @ 0 mls/hr 01/23/18 13:18 03:29 Dilaudid Intelligence Specialist Inj PINBALL MACHINE REPAIRER 0 mls/hr UNSCH PRN Administration per PINBALL MACHINE REPAIRER parameters 0 MG/HR Heparin Sodium/Dextrose 25,000 unit in 250 mls @ 18 mls/hr 01/24/18 01:30 10/09 03:28 Heparin/D5w 25,000 U/250 Ml IV.CONT 1,800 units/hr TITRATE PRN 18 mls/hr Per Protocol Administration Protocol 1,800 UNITS/HR Insulin Aspart 0 unit 01/22/18 08:00 01/25/18 08:39 Novolog Insulin Correctional Sugar Inj SQ 2 unit ACHS JAZMINE Administration Protocol Insulin Detemir 10 unit 01/24/18 21:00 01/25/18 08:40 Levemir Inj SQ 10 unit BID JAZMINE Administration Oxycodone HCl 30 mg 01/23/18 18:15 01/25/18 10:00 Roxicodone PO 30 mg Q4H JAZMINE Administration Pt Own: Capecitabine 0 each 01/23/18 21:00 01/25/18 08:40 500 Mg PO 3 each BID JAZMINE Administration Senna/Docusate Sodium 1 tab 01/22/18 09:00 01/25/18 08:41 Bekah-Colace PO Not Given BID JAZMINE Sodium Chloride 2 ml 01/21/18 16:56 01/21/18 19:08 Ns Flush IV.FLUSH 2 ml UNSCH PRN Administration FLUSH AFTER USING IV ACCESS Temazepam 15 mg 01/21/18 21:33 01/22/18 23:12 Restoril PO 15 mg HS PRN Administration INSOMNIA Objective Remarks: GENERAL: middle-aged male patient, lying in bed, watching TV. In no acute distress. SKIN: Warm and dry. HEAD: Normocephalic. EYES: No scleral icterus. No injection or drainage. NECK: Supple, trachea midline. CARDIOVASCULAR: Regular rate and rhythm without murmurs. RESPIRATORY: Breath sounds clear, equal bilaterally. No accessory muscle use. GASTROINTESTINAL: Abdomen soft, non-tender, nondistended. EXTREMITIES: No cyanosis, or edema. LLE tender. MUSCULOSKELETAL: Adequate muscle tone. NEUROLOGICAL: No obvious focal deficit. Awake, alert, and oriented x3. PSYCHIATRIC: Appropriate mood and affect; insight and judgment normal. 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 He has metastasis to the liver. He has undergone concurrent chemotherapy and radiation treatments. He is currently on single- agent Xeloda. He presented to the oncology clinic with left lower extremity swelling. In the emergency room, he was found to have an extensive deep vein thrombosis in the lower extremity. He also has bilateral pulmonary emboli. Plan: 1. Currently on heparin drip, no obvious signs of bleeding. Continue to monitor for bleeding. 2. Continues with LLE pain, on Dilaudid PINBALL MACHINE REPAIRER pump. Thrombectomy cancelled per IR recommendation due to bilateral pulmonary emboli. 3. Metastatic adenocarcinoma. Patient to continue Xeloda 1500 mg twice daily. 4. Continue supportive care. - Attending Statement The exam, history, and the medical decision-making described in the above note were completed with the assistance of the mid-level provider. I reviewed and agree with the findings presented. I attest that I had a [id number] encounter with the patient on the same day, and personally performed and documented my assessment and findings in the medical record. Patient is complaining of discomfort in the left lower leg and also noted some knots. Patient's denies any shortness of breath or chest pains. Patient is currently on heparin and tolerating it well. Patient has left lower extremity DVT with bilateral pulmonary embolism most likely due to hypercoagulable state from malignancy Patient has metastatic anorectal cancer and currently on single agent Xeloda. Patient has several questions and these were answered to his satisfaction.
--- NOTE | 2018-01-25 16:14 | P.PNIM ---
Subjective Interval history: No new complaints. Physical Exam Vital signs: Vital Signs 01/24/18 17:00 01/24/18 17:43 01/24/18 20:00 Temperature 98.8 F Pulse Rate 90 88 93 H Respiratory Rate Blood Pressure 130/81 Pulse Oximetry 98 01/24/18 21:00 01/24/18 22:00 01/24/18 23:00 Temperature Pulse Rate 93 H 93 H 93 H Respiratory Rate Blood Pressure Pulse Oximetry 01/25/18 00:00 01/25/18 01:00 01/25/18 02:00 Temperature 97.6 F Pulse Rate 96 H 90 100 H Respiratory Rate Blood Pressure Pulse Oximetry 01/25/18 03:00 01/25/18 04:00 01/25/18 06:00 Temperature 98.2 F Pulse Rate 93 H 94 H 88 Respiratory Rate 16 Blood Pressure 132/82 Pulse Oximetry 94 L 01/25/18 07:00 01/25/18 08:00 01/25/18 08:13 Temperature 97.9 F Pulse Rate 81 90 Respiratory Rate 16 16 Blood Pressure 141/89 H Pulse Oximetry 93 L 01/25/18 08:31 01/25/18 09:00 01/25/18 10:00 Temperature Pulse Rate 92 H 92 H Respiratory Rate 16 Blood Pressure Pulse Oximetry 01/25/18 11:00 01/25/18 11:46 01/25/18 11:48 Temperature Pulse Rate 86 Respiratory Rate 16 14 Blood Pressure Pulse Oximetry 01/25/18 12:00 01/25/18 13:00 01/25/18 14:00 Temperature 98.2 F Pulse Rate 71 90 97 H Respiratory Rate 16 Blood Pressure 129/71 Pulse Oximetry 97 01/25/18 15:10 Temperature Pulse Rate Respiratory Rate 16 Blood Pressure Pulse Oximetry No new complaints. Narrative: GENERAL: This is a well-nourished, well-developed patient, in no apparent distress. CARDIOVASCULAR: Regular rate and rhythm RESPIRATORY: Clear to auscultation. Breath sounds equal bilaterally. GASTROINTESTINAL: Abdomen soft, non-tender, nondistended. Normal active bowel sounds MUSCULOSKELETAL: palpable cord behind let knee NEURO: Alert & Oriented x4 to person, place, time, situation. Moves all ext x4 Results - Labs CBC & Chem 7: 01/25/18 08:24 01/25/18 08:24 - Imaging Chest CTA 01/21/18 16:56 CONCLUSION: 1. Examination is positive for fairly extensive bilateral pulmonary embolic disease. 2. Severe coronary calcifications. Venous Doppler Study 01/21/18 16:56 CONCLUSION: 1. Extensive deep venous thrombosis in the left lower extremity as above. Assessment and Plan - Assessment (1) Acute pulmonary embolism Code(s): I26.99 - Other pulmonary embolism without acute cor pulmonale Status : Acute Plan: Mr. Nixon is a pleasant 57 y/o WM with stage IV adenocarcinoma of rectal origin, oligometastatic disease to the liver currently being treated with neoadjuvant therapy consisting of Xeloda and radiation, diabetes mellitus, HTN, hyperlipidemia, ELIAZAR, secondary polycythemia, and history of DVT in his right leg 2012. Patient presented to the ER 01/21/18 with presents with left leg pain and swelling with intermittent shortness of breath. Acute extensive pulmonary emboli bilaterally Left lower extremity DVT Left lower extremity ultrasound reveals extensive DVT in the left lower extremity thrombus with occlusive thrombus in the common femoral vein, superficial femoral vein, popliteal vein and down to the distal posterior tibial vein. CT angiogram of the chest reviewed conclusion examination is positive for fairly extensive bilateral pulmonary disease embolic disease. Patient was started on heparin drip and admitted to the hospital. - case d/w Dr. Hernandez (01/24/18). Continue IV heparin - Case d/w IR, Dr. Kelly. Pt has b/l PE and NO limb ischemia. NO thrombolysis at this time. - continue IV heparin - continue current pain regimen - will d/w IR/Oncology again saturday 01/2701/25/18 - Pt interviewed and examined - continue current treatment plan as outlined above. Pain - uncontrolled c/o rectal pain Left lower extremity pain Patient continues to be very painful - Dilaudid HORSE STUD MANAGER Oxycodone 30 mg PO Q4H Diabetes mellitus type 2, noninsulin dependent - OHA resumed - start levemir 10units BID - NovoLog SSI - Accu checks Hypertension, benign - Home meds continued - Monitor Vianey's thyroiditis - Home dose of Synthroid continued ELIAZAR (obstructive sleep apnea) - Pt does not use CPAP Hyperlipidemia - Home meds continued (2) DVT (deep venous thrombosis) Code(s): I82.409 - Acute embolism and thrombosis of unspecified deep veins of unspecified lower extremity Status: Acute (1) Acute pulmonary embolism Qualifiers: Pulmonary embolism type: other (2) DVT (deep venous thrombosis) Qualifiers: DVT location: lower extremity Affected thrombotic vein of extremity: unspecified lower extremity proximal vein Chronicity: acute Laterality: left Qualified Code(s): I82.4Y2 - Acute embolism and thrombosis of unspecified deep veins of left proximal lower extremity
[2018-01-25] MEDS ORDERED: Benzonatate 100 MG Capsule PO PRN (19:40)
[2018-01-25] MEDS ORDERED: Insulin Detemir Inj 1,000 UNIT/10 ML Vial SQ SCH (21:00)
[2018-01-25] MEDS: LORazepam 0.5 MG Tablet PO PRN (21:15)
[2018-01-26] MEDS: HYDROmorphone PCA Inj 6 MG/30 ML PCA.VIAL PCA PRN ×4 (05:59→21:31)
[2018-01-26] MEDS: Heparin Drip 25,000 UNIT/250 ML BAG IV.CONT PRN ×2 (06:10→20:16)
[2018-01-26] MEDS: LORazepam 0.5 MG Tablet PO PRN ×3 (08:57→22:36)
[2018-01-26] MEDS: Insulin NovoLOG Aspart Correctional Sugar Inj SQ SCH ×4 (08:57→22:29)
[2018-01-26] MEDS: Gabapentin 100 MG Capsule PO SCH ×2 (08:59→21:16)
[2018-01-26] MEDS: Senna/Docusate Sodium 8.6/50 MG Tablet PO SCH ×2 (08:59→21:16)
[2018-01-26] MEDS ORDERED: Insulin Detemir Inj 1,000 UNIT/10 ML Vial SQ ONE (09:00)
[2018-01-26] MEDS: CAPECITABINE 500 MG PO SCH ×2 (09:33→22:59)
--- NOTE | 2018-01-26 15:46 | P.PNIM ---
Subjective Interval history: Pt's pain appears controlled. Nursing reports that pt eating outside food. Physical Exam Vital signs: 01/26/18 12:00 01/26/18 13:00 01/26/18 13:37 Temperature 98.1 F Pulse Rate 88 91 H Respiratory Rate 22 20 Blood Pressure 162/100 H Pulse Oximetry 95 Narrative: GENERAL: This is a well-nourished, well-developed patient, in no apparent distress. CARDIOVASCULAR: Regular rate and rhythm RESPIRATORY: Clear to auscultation. Breath sounds equal bilaterally. GASTROINTESTINAL: Abdomen soft, non-tender, nondistended. Normal active bowel sounds MUSCULOSKELETAL: palpable cord behind let knee NEURO: Alert & Oriented x4 to person, place, time, situation. Moves all ext x4 Results - Labs CBC & Chem 7: 01/25/18 08:24 01/25/18 08:24 Assessment and Plan - Assessment (1) Acute pulmonary embolism Code(s): I26.99 - Other pulmonary embolism without acute cor pulmonale Status : Acute Plan: Mr. Nixon is a pleasant 57 y/o WM with stage IV adenocarcinoma of rectal origin, oligometastatic disease to the liver currently being treated with neoadjuvant therapy consisting of Xeloda and radiation, diabetes mellitus, HTN, hyperlipidemia, ELIAZAR, secondary polycythemia, and history of DVT in his right leg 2012. Patient presented to the ER 01/21/18 with presents with left leg pain and swelling with intermittent shortness of breath. Acute extensive pulmonary emboli bilaterally Left lower extremity DVT Left lower extremity ultrasound reveals extensive DVT in the left lower extremity thrombus with occlusive thrombus in the common femoral vein, superficial femoral vein, popliteal vein and down to the distal posterior tibial vein. CT angiogram of the chest reviewed conclusion examination is positive for fairly extensive bilateral pulmonary disease embolic disease. Patient was started on heparin drip and admitted to the hospital. - case d/w Dr. Hernandez (01/24/18). Continue IV heparin - Case d/w IR, Dr. Kelly, 01/24/18 Pt has b/l PE and NO limb ischemia. NO thrombolysis at this time. - continue IV heparin - continue current pain regimen - will d/w IR/Oncology again saturday 01/2701/26/18 - Pt interviewed and examined - continue current treatment plan as outlined above. Pain - uncontrolled c/o rectal pain Left lower extremity pain Patient continues to be very painful - Dilaudid RN DOCUMENT IMPROVEMENT Oxycodone 30 mg PO Q4H Diabetes mellitus type 2, noninsulin dependent - OHA resumed - increase levemir to 16 units - NovoLog SSI - Accu checks Hypertension, benign - Home meds continued - Monitor Vianey's thyroiditis - Home dose of Synthroid continued ELIAZAR (obstructive sleep apnea) - Pt does not use CPAP Hyperlipidemia - Home meds continued (2) DVT (deep venous thrombosis) Code(s): I82.409 - Acute embolism and thrombosis of unspecified deep veins of unspecified lower extremity Status: Acute (1) Acute pulmonary embolism Qualifiers: Pulmonary embolism type: other (2) DVT (deep venous thrombosis) Qualifiers: DVT location: lower extremity Affected thrombotic vein of extremity: unspecified lower extremity proximal vein Chronicity: acute Laterality: left Qualified Code(s): I82.4Y2 - Acute embolism and thrombosis of unspecified deep veins of left proximal lower extremity
--- NOTE | 2018-01-26 16:34 | XR ---
EXAM DATE: 01/26/2018 4:03 PM EDT AGE/SEX: 57 years / Male INDICATIONS: Constipation. CLINICAL DATA: This is the patient's initial encounter. Patient reports that signs and symptoms have been present for 1 day and indicates a pain score of 0/10. MEDICAL/SURGICAL HISTORY: Carcinoma, anal. Carcinoma, hepatic. None. COMPARISON: No prior exams available for comparison. FINDINGS: The abdominal bowel gas pattern is normal except mild constipation. No abnormal masses, calcificati ons, or organomegaly is seen. The osseous structures are unremarkable. CONCLUSION: Mild constipation. No acute findings. Electronically signed by: Johnny Amador MD 01/26/2018 4:32 PM EDT
[2018-01-26] MEDS: Insulin Detemir Inj 1,000 UNIT/10 ML Vial SQ SCH (22:33)
[2018-01-26] MEDS: Temazepam 15 MG Capsule PO PRN (22:36)
[2018-01-27 08:09] LABS: Baso # (Auto) 0.1 th/mm3 (0.0-0.2); Eos # (Auto) 0.4 th/mm3 (0.0-0.4); Eos % (Auto) 7.1 % (0.0-4.0); Hematocrit 42.1 % (39.0-51.0); Hemoglobin 14.2 gm/dL (13.0-17.0); Lymph # (Auto) 0.5 th/mm3 (1.0-4.8); Lymph % (Auto) 8.9 % (9.0-44.0); Mean Corpuscular HGB Conc 33.8 % (32.0-36.0); Mean Corpuscular Hemoglobin 31.1 pg (27.0-34.0); Mean Corpuscular Volume 92.1 fL (80.0-100.0); Mean Platelet Volume 7.1 fL (7.0-11.0); Mono # (Auto) 0.7 th/mm3 (0.0-0.9); Mono % (Auto) 12.7 % (0.0-8.0); Neut # (Auto) 3.7 th/mm3 (1.8-7.7); Neut % (Auto) 70.3 % (16.0-70.0); Platelet Count 196 th/mm3 (150-450); Red Blood Count 4.57 mil/mm3 (4.50-5.90); Red Cell Distribution Width 26.5 % (11.6-17.2); White Blood Count 5.3 th/mm3 (4.0-11.0)
[2018-01-27 08:50] LABS: Platelet Estimate Normal (Normal); Platelet Morphology Normal (Normal)
--- NOTE | 2018-01-27 09:10 | P.PNIM ---
Subjective Interval history: nad. left leg still with some pain pt says registered clinical dietitian really not making much difference. Physical Exam Vital signs: Vital Signs 01/26/18 09:32 01/26/18 10:00 01/26/18 11:00 Temperature Pulse Rate 95 H 87 Respiratory Rate 18 Blood Pressure Pulse Oximetry 01/26/18 11:20 01/26/18 12:00 01/26/18 13:00 Temperature 98.1 F Pulse Rate 88 91 H Respiratory Rate 20 22 Blood Pressure 162/100 H Pulse Oximetry 95 01/26/18 13:37 01/26/18 13:38 01/26/18 14:00 Temperature Pulse Rate 93 H Respiratory Rate 20 20 Blood Pressure Pulse Oximetry 01/26/18 15:00 01/26/18 16:00 01/26/18 16:57 Temperature 98.8 F Pulse Rate 99 H 90 Respiratory Rate 20 20 Blood Pressure 138/85 Pulse Oximetry 94 L 01/26/18 18:00 01/26/18 19:00 01/26/18 20:00 Temperature 98.7 F Pulse Rate 93 H 94 H 97 H Respiratory Rate 18 Blood Pressure 126/76 Pulse Oximetry 97 01/26/18 20:52 01/26/18 21:00 01/26/18 22:00 Temperature Pulse Rate 98 H 100 H Respiratory Rate 2 L 2 L Blood Pressure Pulse Oximetry 01/26/18 23:00 01/27/18 00:00 01/27/18 01:00 Temperature Pulse Rate 85 97 H 97 H Respiratory Rate 18 Blood Pressure 145/96 H Pulse Oximetry 98 01/27/18 01:03 01/27/18 02:00 01/27/18 03:00 Temperature Pulse Rate 86 90 Respiratory Rate 2 L Blood Pressure Pulse Oximetry 01/27/18 04:00 01/27/18 05:00 01/27/18 06:00 Temperature 98 F Pulse Rate 91 H 91 H 94 H Respiratory Rate 18 Blood Pressure 137/86 Pulse Oximetry 98 01/27/18 07:00 01/27/18 08:00 Temperature 98.6 F Pulse Rate 96 H 101 H Respiratory Rate 16 Blood Pressure 119/81 Pulse Oximetry 96 Intake & Output 01/26/18 01/27/18 01/27/18 18:59 06:59 18:59 Intake Total 1830 / 1830 490 / 490 Output Total 1840 / 1840 700 / 700 Balance -10 / -10 -210 / -210 Weight 103.2 kg Intake: IV 250 / 250 Heparin/D5W 25,000 U/250 mL 25, 250 / 250 000 unit In 250 ml @ 1,800 UNITS/HR 18 mls/hr IV.CONT TITRATE PRN Rx#:[id number] Oral 1830 / 1830 240 / 240 Output: Urine 1839 / 1840 700 / 700 Other: Date of Last Bowel Movement 01/24/18 01/24/18 01/27/18 heart reg lung cta abd s/nt ext no edema Results - Labs CBC & Chem 7: 01/27/18 06:33 01/25/18 08:24 Laboratory Results - last 24 hr 01/26/18 01/26/18 01/26/18 09:25 12:30 17:01 WBC RBC Hgb Hct MCV MCH MCHC RDW Plt Count MPV Prelim Diff (Auto) Neut % (Auto) Lymph % (Auto) Cottle % (Auto) Eos % (Auto) Baso % (Auto) Neut # (Auto) Lymph # (Auto) [place] # (Auto) Eos # (Auto) Baso # (Auto) WBC Differential Diff Scan Differential Comment Platelet Estimate Platelet Morphology APTT 41.4 H POC Glucose 288 H 245 H 01/26/18 01/27/18 01/27/18 20:40 06:33 06:33 WBC 5.3 RBC 4.57 Hgb 14.2 Hct 42.1 MCV 92.1 MCH 31.1 MCHC 33.8 RDW 26.5 H Plt Count 196 MPV 7.1 Prelim Diff (Auto) Slide review pending Neut % (Auto) 70.3 H Lymph % (Auto) 8.9 L [place] % (Auto) 12.7 H Eos % (Auto) 7.1 H Baso % (Auto) 1.0 Neut # (Auto) 3.7 Lymph # (Auto) 0.5 L [place]le # (Auto) 0.7 Eos # (Auto) 0.4 Baso # (Auto) 0.1 WBC Differential . Diff Scan Auto diff confirmed Differential Comment . Platelet Estimate Normal Platelet Morphology Normal APTT 44.8 H POC Glucose 336 H 01/27/18 07:54 WBC RBC Hgb Hct MCV MCH MCHC RDW Plt Count MPV Prelim Diff (Auto) Neut % (Auto) Lymph % (Auto) Cottle % (Auto) Eos % (Auto) Baso % (Auto) Neut # (Auto) Lymph # (Auto) [place] # (Auto) Eos # (Auto) Baso # (Auto) WBC Differential Diff Scan Differential Comment Platelet Estimate Platelet Morphology APTT POC Glucose 196 H - Imaging Impressions Abdomen X-Ray 01/26/18 00:00 CONCLUSION: Mild constipation. No acute findings. Assessment and Plan - Assessment (1) Acute pulmonary embolism Code(s): I26.99 - Other pulmonary embolism without acute cor pulmonale Status : Acute Plan: Mr. Nixon is a pleasant 57 y/o WM with stage IV adenocarcinoma of rectal origin, oligometastatic disease to the liver currently being treated with neoadjuvant therapy consisting of Xeloda and radiation, diabetes mellitus, HTN, hyperlipidemia, ELIAZAR, secondary polycythemia, and history of DVT in his right leg 2012. Patient presented to the ER 01/21/18 with presents with left leg pain and swelling with intermittent shortness of breath. Acute extensive pulmonary emboli bilaterally Left lower extremity DVT Left lower extremity ultrasound reveals extensive DVT in the left lower extremity thrombus with occlusive thrombus in the common femoral vein, superficial femoral vein, popliteal vein and down to the distal posterior tibial vein. CT angiogram of the chest reviewed conclusion examination is positive for fairly extensive bilateral pulmonary disease embolic disease. Patient was started on heparin drip and admitted to the hospital. - case d/w Dr. Hernandez (01/24/18). Continue IV heparin - Case d/w IR, Dr. Kelly, 01/24/18 Pt has b/l PE and NO limb ischemia. NO thrombolysis at this time. - plan to convert heparin to lovenox today - dc registered clinical dietitian and start prn breakthrough pain med will plan for dc to snf tomorrow. will ask IR again today Pain - uncontrolled c/o rectal pain Left lower extremity pain Oxycodone 30 mg PO Q4H convert registered clinical dietitian to prn breakthrough. Diabetes mellitus type 2, noninsulin dependent - OHA resumed - levemir for now. home meds not on formulary. - NovoLog SSI - Accu checks Hypertension, benign - Home meds continued - Monitor Vianey's thyroiditis - Home dose of Synthroid continued ELIAZAR (obstructive sleep apnea) - Pt does not use CPAP Hyperlipidemia - Home meds continued (2) DVT (deep venous thrombosis) Code(s): I82.409 - Acute embolism and thrombosis of unspecified deep veins of unspecified lower extremity Status: Acute (1) Acute pulmonary embolism Qualifiers: Pulmonary embolism type: other (2) DVT (deep venous thrombosis) Qualifiers: DVT location: lower extremity Affected thrombotic vein of extremity: unspecified lower extremity proximal vein Chronicity: acute Laterality: left Qualified Code(s): I82.4Y2 - Acute embolism and thrombosis of unspecified deep veins of left proximal lower extremity
[2018-01-27] MEDS: Senna/Docusate Sodium 8.6/50 MG Tablet PO SCH ×2 (10:13→20:08)
[2018-01-27] MEDS: Insulin NovoLOG Aspart Correctional Sugar Inj SQ SCH ×4 (10:13→20:09)
[2018-01-27] MEDS: Gabapentin 100 MG Capsule PO SCH ×2 (10:13→20:08)
[2018-01-27] MEDS: CAPECITABINE 500 MG PO SCH ×2 (10:14→20:08)
[2018-01-27] MEDS: Heparin Drip 25,000 UNIT/250 ML BAG IV.CONT PRN (10:17)
--- NOTE | 2018-01-27 13:01 | P.PNONC ---
Subjective Interval history: Afebrile No bleeding Patient reports his pain is not controlled on [employer] He was switched to as needed oral Dilaudid this morning Remains on 30 mg oxycodone scheduled every 4 hours Wishes for me to let Dr. Hernandez know that he is out of his outpatient pain medication Pain is localized to the legs. Denies abdominal pain Objective Vital Signs/Intake & Output: Vital Signs 01/26/18 13:00 01/26/18 13:37 01/26/18 13:38 Temperature Pulse Rate 91 H Respiratory Rate 20 20 Blood Pressure Pulse Oximetry 01/26/18 14:00 01/26/18 15:00 01/26/18 16:00 Temperature 98.8 F Pulse Rate 93 H 99 H 90 Respiratory Rate 20 Blood Pressure 138/85 Pulse Oximetry 94 L 01/26/18 16:57 01/26/18 18:00 01/26/18 19:00 Temperature Pulse Rate 93 H 94 H Respiratory Rate 20 Blood Pressure Pulse Oximetry 01/26/18 20:00 01/26/18 20:52 01/26/18 21:00 Temperature 98.7 F Pulse Rate 97 H 98 H Respiratory Rate 18 2 L Blood Pressure 126/76 Pulse Oximetry 97 01/26/18 22:00 01/26/18 23:00 01/27/18 00:00 Temperature Pulse Rate 100 H 85 97 H Respiratory Rate 2 L 18 Blood Pressure 145/96 H Pulse Oximetry 98 01/27/18 01:00 01/27/18 01:03 01/27/18 02:00 Temperature Pulse Rate 97 H 86 Respiratory Rate 2 L Blood Pressure Pulse Oximetry 01/27/18 03:00 01/27/18 04:00 01/27/18 05:00 Temperature 98 F Pulse Rate 90 91 H 91 H Respiratory Rate 18 Blood Pressure 137/86 Pulse Oximetry 98 01/27/18 06:00 01/27/18 07:00 01/27/18 08:00 Temperature 98.6 F Pulse Rate 94 H 96 H 101 H Respiratory Rate 16 Blood Pressure 119/81 Pulse Oximetry 96 01/27/18 09:00 01/27/18 10:00 01/27/18 11:00 Temperature Pulse Rate 94 H 96 H 100 H Respiratory Rate Blood Pressure Pulse Oximetry 01/27/18 12:00 Temperature 98.7 F Pulse Rate 98 H Respiratory Rate 16 Blood Pressure 126/82 Pulse Oximetry 96 Intake & Output 01/26/18 01/27/18 01/27/18 18:59 06:59 18:59 Intake Total 1830 / 1830 490 / 490 Output Total 1840 / 1840 700 / 700 Balance -10 / -10 -210 / -210 Weight 227 lb 8.273 oz Intake: IV 250 / 250 Heparin/D5W 25,000 U/250 mL 25, 250 / 250 000 unit In 250 ml @ 1,800 UNITS/HR 18 mls/hr IV.CONT TITRATE PRN Rx#:[id number] Oral 1830 / 1830 240 / 240 Output: Urine 1840 / 1840 700 / 700 Other: Date of Last Bowel Movement 01/24/18 01/24/18 01/27/18 Result Diagrams: 01/27/18 06:33 01/25/18 08:24 Laboratory Results: Laboratory Results - last 24 hr 01/26/18 01/26/18 01/27/18 17:01 20:40 06:33 WBC 5.3 RBC 4.57 Hgb 14.2 Hct 42.1 MCV 92.1 MCH 31.1 MCHC 33.8 RDW 26.5 H Plt Count 196 MPV 7.1 Prelim Diff (Auto) Slide review pending Neut % (Auto) 70.3 H Lymph % (Auto) 8.9 L [place] % (Auto) 12.7 H Eos % (Auto) 7.1 H Baso % (Auto) 1.0 Neut # (Auto) 3.7 Lymph # (Auto) 0.5 L [place] # (Auto) 0.7 Eos # (Auto) 0.4 Baso # (Auto) 0.1 WBC Differential . Diff Scan Auto diff confirmed Differential Comment . Platelet Estimate Normal Platelet Morphology Normal APTT POC Glucose 245 H 336 H 01/27/18 01/27/18 01/27/18 06:33 07:54 11:24 WBC RBC Hgb Hct MCV MCH MCHC RDW Plt Count MPV Prelim Diff (Auto) Neut % (Auto) Lymph % (Auto) [place] % (Auto) Eos % (Auto) Baso % (Auto) Neut # (Auto) Lymph # (Auto) [place] # (Auto) Eos # (Auto) Baso # (Auto) WBC Differential Diff Scan Differential Comment Platelet Estimate Platelet Morphology APTT 44.8 H POC Glucose 196 H 281 H Imaging Studies: Impressions Abdomen X-Ray 01/26/18 00:00 CONCLUSION: Mild constipation. No acute findings. Medications: Active Medications Generic Name Dose Route Start Last Admin Trade Name Freq PRN Reason Stop Dose Admin Artificial Tears 1 applicatio 01/24/18 18:00 01/27/18 10:14 Eucerin Cream TOPICAL 1 applicatio QID JAZMINE Administration Gabapentin 100 mg 01/22/18 21:00 01/27/18 10:13 Neurontin PO 100 mg BID JAZMINE Administration Hydromorphone HCl 2 mg 01/27/18 09:06 01/27/18 12:44 Dilaudid PO 2 mg Q3H PRN Administration breakthrough pain 3-10 Heparin Sodium/Dextrose 25,000 unit in 250 mls @ 18 mls/hr 01/24/18 01:30 12/09 10:17 Heparin/D5w 25,000 U/250 Ml IV.CONT 1,800 units/hr TITRATE PRN 18 mls/hr Per Protocol Administration Protocol 1,800 UNITS/HR Insulin Aspart 0 unit 01/22/18 08:00 01/27/18 12:29 Novolog Insulin Correctional Sugar Inj SQ 7 unit ACHS JAZMINE Administration Protocol Insulin Detemir 16 unit 01/26/18 15:42 01/26/18 22:33 Levemir Inj SQ 16 unit HS JAZMINE Administration Lorazepam 0.5 mg 01/25/18 16:37 01/26/18 22:36 Ativan PO 0.5 mg Q8H PRN Administration AGITATION Oxycodone HCl 30 mg 01/23/18 18:15 01/27/18 10:15 Roxicodone PO 30 mg Q4H JAZMINE Administration Pt Own: Capecitabine 0 each 01/23/18 21:00 01/27/18 10:14 500 Mg PO 3 each BID JAZMINE Administration Senna/Docusate Sodium 1 tab 01/22/18 09:00 01/27/18 10:13 Bekah-Colace PO 1 tab BID JAZMINE Administration Sodium Chloride 2 ml 01/21/18 16:56 01/25/18 21:16 Ns Flush IV.FLUSH 2 ml UNSCH PRN Administration FLUSH AFTER USING IV ACCESS Temazepam 15 mg 01/21/18 21:33 01/26/18 22:36 Restoril PO 15 mg HS PRN Administration INSOMNIA Objective Remarks: GENERAL: Middle-age male resting in bed in no obvious distress SKIN: Warm and dry. HEAD: Normocephalic. EYES: No scleral icterus. No injection or drainage. NECK: Supple, trachea midline. CARDIOVASCULAR: Regular rate and rhythm without murmurs. RESPIRATORY: Breath sounds clear, equal bilaterally. No accessory muscle use. GASTROINTESTINAL: Abdomen soft, non-tender, nondistended. EXTREMITIES: No cyanosis, or edema. LLE tender. MUSCULOSKELETAL: Adequate muscle tone. NEUROLOGICAL: No obvious focal deficit. Awake, alert, and oriented x3. 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 He has metastasis to the liver. He has undergone concurrent chemotherapy and radiation treatments. He is currently on single- agent Xeloda. He presented to the oncology clinic with left lower extremity swelling. In the emergency room, he was found to have an extensive deep vein thrombosis in the lower extremity. He also has bilateral pulmonary emboli. Plan: 1. Continue heparin drip. Eventually will switch him to Lovenox once no procedures planned. 2. I have placed a consult to Dr. Kiser to evaluate for possible EUS while inpatient. This was part of the workup that was planned for this week outpatient. 3. Remains on Xeloda. Currently not experiencing any overt side effects. Will continue.
--- NOTE | 2018-01-27 13:13 | P.CONGI ---
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 Benton. Pt has been referred to a surgeon at [facility] in [place] who wants a rectal EUS done for staging to determine surgical options. Pt was initially planning on having rectal EUS outpatient, however is currently admitted to the hospital for bilateral PE and DVT and therefore our service has been consulted for possible EUS while inpatient. Pt reports some rectal pain from radiation. States initially was having diarrhea but has been having formed BMs, denies any blood in the stool. Denies nausea, vomiting, abdominal pain. <nAa Joy - Last Filed: 01/27/18 12:52> Review of Systems Gastrointestinal: Denies abdominal pain, Denies black, tarry stools, Denies bright, red blood in stools, Denies incontinent of stools, Denies nausea, Denies vomiting <Ana Joy - Last Filed: 01/27/18 12:52> PMFSH - History History Provided By: Patient - Medical History Medical History: Medical History (Last Reviewed 01/27/18 @ 08:53 by Camryn Jimenez) Diabetes type 2, controlled HTN (hypertension) Rectal cancer Anxiety DVT (deep venous thrombosis) Depression Light-headedness Port-A-Cath in place - Surgical History Surgical History: Surgical History (Last Reviewed 01/27/18 @ 08:54 by Camryn Jimenez) Hx of right knee surgery Status post chemotherapy Status post radiation therapy - Tobacco History Second Hand Smoke Exposure: No Tobacco Use In Past 30 Days: Yes Smoking Status: Current every day smoker Tobacco Type: Cigarettes - Alcohol History How Often Do You Have a Drink Containing Alcohol: 2 to 3 times a week - Substance Use History Substance History: No History of Abuse - Travel History Recent Travel in the [place] Within the Last 8 Weeks: No Recent Travel Out of the Country Within the Last 8 Weeks: No - Immunization History Tetanus Immunization: <5 Years Hx Influenza Vaccine This Season: No <Ana Joy - Last Filed: 01/27/18 12:52> - Medical History Medical History: Medical History (Last Reviewed 01/27/18 @ 08:53 by Camryn Jimenez) Diabetes type 2, controlled HTN (hypertension) Rectal cancer Anxiety DVT (deep venous thrombosis) Depression Light-headedness Port-A-Cath in place - Surgical History Surgical History: Surgical History (Last Reviewed 01/27/18 @ 08:54 by Camryn Jimenez) Hx of right knee surgery Status post chemotherapy Status post radiation therapy <Kenneth Kiser - Last Filed: 01/27/18 16:17> Medications and Allergies Active Medications: Active Medications Acetaminophen (Tylenol) 650 mg PO Q4H PRN PRN Reason: Temp > 100.4 Al Hydroxide/Mg Hydroxide (Milk Of Magnesia Liq) 30 ml PO Q12H PRN PRN Reason: Mild Constipation Artificial Tears (Eucerin Cream) 1 applicatio TOPICAL QID [facility] Last Admin: 01/27/18 10:14 Dose: 1 applicatio Benzonatate (Tessalon Perles) 200 mg PO Q8H PRN PRN Reason: COUGH Bisacodyl (Dulcolax Supp) 10 mg RECTAL DAILY PRN PRN Reason: SEVERE CONSITIPATION Dextrose (D50w Vial) 50 ml IV.PUSH UNSCH PRN PRN Reason: PER HYPOGLYCEMIA PROTOCOL Gabapentin (Neurontin) 100 mg PO BID [facility] Last Admin: 01/27/18 10:13 Dose: 100 mg Glucagon (Glucagon Inj) 1 mg OTHER PRN PRN PRN Reason: for Hypoglycemia Protocol Heparin Sodium (Porcine) (Heparin Inj) 5,000 units IV.PUSH UNSCH PRN PRN Reason: aPTT < 25 Heparin Sodium (Porcine) (Heparin Inj) 2,500 units IV.PUSH UNSCH PRN PRN Reason: aPTT 25-39 Hydromorphone HCl (Dilaudid) 2 mg PO Q3H PRN PRN Reason: breakthrough pain 3-10 Last Admin: 01/27/18 12:44 Dose: 2 mg Heparin Sodium/Dextrose (Heparin/D5w 25,000 U/250 Ml) 25,000 unit in 250 mls @ 18 mls/hr IV.CONT TITRATE PRN; Protocol PRN Reason: Per Protocol Last Admin: 01/27/18 10:17 Dose: 1,800 units/hr, 18 mls/hr Insulin Aspart (Novolog Insulin Correctional Sugar Inj) 0 unit SQ ACHS [facility]; Protocol Last Admin: 01/27/18 12:29 Dose: 7 unit Insulin Detemir (Levemir Inj) 16 unit SQ HS [facility] Last Admin: 01/26/18 22:33 Dose: 16 unit Lactulose (Lactulose Liq) 30 ml PO DAILY PRN PRN Reason: SEVERE CONSITIPATION Lorazepam (Ativan) 0.5 mg PO Q8H PRN PRN Reason: AGITATION Last Admin: 01/26/18 22:36 Dose: 0.5 mg Naloxone HCl (Narcan Inj) 0.4 mg IV.PUSH UNSCH PRN PRN Reason: SEE LABEL COMMENTS Naloxone HCl (Narcan Inj) 0.4 mg IV.PUSH PRN PRN PRN Reason: SEE LABEL COMMENTS Ondansetron HCl (Zofran Inj) 4 mg IV.PUSH Q6H PRN PRN Reason: NAUSEA OR VOMITING Oxycodone HCl (Roxicodone) 30 mg PO Q4H [facility] Last Admin: 01/27/18 10:15 Dose: 30 mg Pt Own: Farxiga 10mg 0 each PO DAILY [facility] Pt Own: Toujeo (Solostar) 0 each SQ DAILY [facility] Pt Own: Capecitabine (500 Mg) 0 each PO BID [facility] Last Admin: 01/27/18 10:14 Dose: 3 each Senna/Docusate Sodium (Bekah-Colace) 1 tab PO BID [facility] Last Admin: 01/27/18 10:13 Dose: 1 tab Sennosides (Senokot) 17.2 mg PO Q12H PRN PRN Reason: Moderate Constipation Sodium Chloride (Ns Flush) 2 ml IV.FLUSH UNSCH PRN PRN Reason: FLUSH AFTER USING IV ACCESS Last Admin: 01/25/18 21:16 Dose: 2 ml Temazepam (Restoril) 15 mg PO HS PRN PRN Reason: INSOMNIA Last Admin: 01/26/18 22:36 Dose: 15 mg <Ana Joy - Last Filed: 01/27/18 12:52> Active Medications: Active Medications Acetaminophen (Tylenol) 650 mg PO Q4H PRN PRN Reason: Temp > 100.4 Al Hydroxide/Mg Hydroxide (Milk Of Magnesia Liq) 30 ml PO Q12H PRN PRN Reason: Mild Constipation Artificial Tears (Eucerin Cream) 1 applicatio TOPICAL QID [facility] Last Admin: 01/27/18 13:36 Dose: 1 applicatio Benzonatate (Tessalon Perles) 200 mg PO Q8H PRN PRN Reason: COUGH Bisacodyl (Dulcolax Supp) 10 mg RECTAL DAILY PRN PRN Reason: SEVERE CONSITIPATION Dextrose (D50w Vial) 50 ml IV.PUSH UNSCH PRN PRN Reason: PER HYPOGLYCEMIA PROTOCOL Gabapentin (Neurontin) 100 mg PO BID [facility] Last Admin: 01/27/18 10:13 Dose: 100 mg Glucagon (Glucagon Inj) 1 mg OTHER PRN PRN PRN Reason: for Hypoglycemia Protocol Heparin Sodium (Porcine) (Heparin Inj) 5,000 units IV.PUSH UNSCH PRN PRN Reason: aPTT < 25 Heparin Sodium (Porcine) (Heparin Inj) 2,500 units IV.PUSH UNSCH PRN PRN Reason: aPTT 25-39 Hydromorphone HCl (Dilaudid) 2 mg PO Q3H PRN PRN Reason: breakthrough pain 3-10 Last Admin: 01/27/18 12:44 Dose: 2 mg Heparin Sodium/Dextrose (Heparin/D5w 25,000 U/250 Ml) 25,000 unit in 250 mls @ 18 mls/hr IV.CONT TITRATE PRN; Protocol PRN Reason: Per Protocol Last Admin: 01/27/18 10:17 Dose: 1,800 units/hr, 18 mls/hr Insulin Aspart (Novolog Insulin Correctional Sugar Inj) 0 unit SQ [facility]; Protocol Last Admin: 01/27/18 12:29 Dose: 7 unit Insulin Detemir (Levemir Inj) 16 unit SQ [facility] Last Admin: 01/26/18 22:33 Dose: 16 unit Lactulose (Lactulose Liq) 30 ml PO DAILY PRN PRN Reason: SEVERE CONSITIPATION Lorazepam (Ativan) 0.5 mg PO Q8H PRN PRN Reason: AGITATION Last Admin: 01/26/18 22:36 Dose: 0.5 mg Naloxone HCl (Narcan Inj) 0.4 mg IV.PUSH UNSCH PRN PRN Reason: SEE LABEL COMMENTS Naloxone HCl (Narcan Inj) 0.4 mg IV.PUSH PRN PRN PRN Reason: SEE LABEL COMMENTS Ondansetron HCl (Zofran Inj) 4 mg IV.PUSH Q6H PRN PRN Reason: NAUSEA OR VOMITING Oxycodone HCl (Roxicodone) 30 mg PO Q4H [facility] Last Admin: 01/27/18 14:27 Dose: 30 mg Pt Own: Farxiga 10mg 0 each PO DAILY [facility] Pt Own: Toujeo (Solostar) 0 each SQ DAILY [facility] Pt Own: Capecitabine (500 Mg) 0 each PO BID [facility] Last Admin: 01/27/18 10:14 Dose: 3 each Senna/Docusate Sodium (Bekah-Colace) 1 tab PO BID [facility] Last Admin: 01/27/18 10:13 Dose: 1 tab Sennosides (Senokot) 17.2 mg PO Q12H PRN PRN Reason: Moderate Constipation Sodium Chloride (Ns Flush) 2 ml IV.FLUSH UNSCH PRN PRN Reason: FLUSH AFTER USING IV ACCESS Last Admin: 01/25/18 21:16 Dose: 2 ml Temazepam (Restoril) 15 mg PO HS PRN PRN Reason: INSOMNIA Last Admin: 01/26/18 22:36 Dose: 15 mg <Kenneth Kiser E - Last Filed: 01/27/18 16:17> Allergies Allergy/AdvReac Type Severity Reaction Status Date / Time warfarin Allergy Unknown Rash Verified 11/12/17 13:02 Home Medications Medication Instructions Recorded Confirmed Type capecitabine [Xeloda] 1,500 mg PO Q12H 01/21/18 01/21/18 History dapagliflozin [Farxiga] 10 mg PO QAM 01/21/18 01/21/18 History insulin glargine [Toujeo SoloStar 30 unit SUB-Q DAILY 01/21/18 01/21/18 History U-300 Insulin] metformin 1,000 mg PO BID 01/21/18 01/21/18 History oxycodone 40 mg PO Q3HR PRN 01/21/18 01/21/18 History Exam Vital signs: Vital Signs 01/26/18 13:00 01/26/18 13:37 01/26/18 13:38 Temperature Pulse Rate 91 H Respiratory Rate 20 20 Blood Pressure Pulse Oximetry 01/26/18 14:00 01/26/18 15:00 01/26/18 16:00 Temperature 98.8 F Pulse Rate 93 H 99 H 90 Respiratory Rate 20 Blood Pressure 138/85 Pulse Oximetry 94 L 01/26/18 16:57 01/26/18 18:00 01/26/18 19:00 Temperature Pulse Rate 93 H 94 H Respiratory Rate 20 Blood Pressure Pulse Oximetry 01/26/18 20:00 01/26/18 20:52 01/26/18 21:00 Temperature 98.7 F Pulse Rate 97 H 98 H Respiratory Rate 18 2 L Blood Pressure 126/76 Pulse Oximetry 97 01/26/18 22:00 01/26/18 23:00 01/27/18 00:00 Temperature Pulse Rate 100 H 85 97 H Respiratory Rate 2 L 18 Blood Pressure 145/96 H Pulse Oximetry 98 01/27/18 01:00 01/27/18 01:03 01/27/18 02:00 Temperature Pulse Rate 97 H 86 Respiratory Rate 2 L Blood Pressure Pulse Oximetry 01/27/18 03:00 01/27/18 04:00 01/27/18 05:00 Temperature 98 F Pulse Rate 90 91 H 91 H Respiratory Rate 18 Blood Pressure 137/86 Pulse Oximetry 98 01/27/18 06:00 01/27/18 07:00 01/27/18 08:00 Temperature 98.6 F Pulse Rate 94 H 96 H 101 H Respiratory Rate 16 Blood Pressure 119/81 Pulse Oximetry 96 01/27/18 12:00 Temperature 98.7 F Pulse Rate 97 H Respiratory Rate 16 Blood Pressure 126/82 Pulse Oximetry 96 Intake & Output 01/26/18 01/27/18 01/27/18 18:59 06:59 18:59 Intake Total 1830 / 1830 490 / 490 Output Total 1840 / 1840 700 / 700 Balance -10 / -10 -210 / -210 Weight 103.2 kg Intake: IV 250 / 250 Heparin/D5W 25,000 U/250 mL 25, 250 / 250 000 unit In 250 ml @ 1,800 UNITS/HR 18 mls/hr IV.CONT TITRATE PRN Rx#:[id number] Oral 1830 / 1830 240 / 240 Output: Urine 1840 / 1840 700 / 700 Other: Date of Last Bowel Movement 01/24/18 01/24/18 01/27/18 - Constitutional no acute distress - Routine HEENT Exam Head: Present: normocephalic, atraumatic - Routine Respiratory Exam Absent: accessory muscle use - Routine Abdominal Exam Present: soft, normoactive bowel sounds, distended. Absent: tenderness - Routine Skin Exam Present: dry, warm - Routine Neurological Exam Present: alert, oriented X3 <Ana Joy - Last Filed: 01/27/18 12:52> Vital signs: Vital Signs 01/26/18 16:57 01/26/18 18:00 01/26/18 19:00 Temperature Pulse Rate 93 H 94 H Respiratory Rate 20 Blood Pressure Pulse Oximetry 01/26/18 20:00 01/26/18 20:52 01/26/18 21:00 Temperature 98.7 F Pulse Rate 97 H 98 H Respiratory Rate 18 2 L Blood Pressure 126/76 Pulse Oximetry 97 01/26/18 22:00 01/26/18 23:00 01/27/18 00:00 Temperature Pulse Rate 100 H 85 97 H Respiratory Rate 2 L 18 Blood Pressure 145/96 H Pulse Oximetry 98 01/27/18 01:00 01/27/18 01:03 01/27/18 02:00 Temperature Pulse Rate 97 H 86 Respiratory Rate 2 L Blood Pressure Pulse Oximetry 01/27/18 03:00 01/27/18 04:00 01/27/18 05:00 Temperature 98 F Pulse Rate 90 91 H 91 H Respiratory Rate 18 Blood Pressure 137/86 Pulse Oximetry 98 01/27/18 06:00 01/27/18 07:00 01/27/18 08:00 Temperature 98.6 F Pulse Rate 94 H 96 H 101 H Respiratory Rate 16 Blood Pressure 119/81 Pulse Oximetry 96 01/27/18 09:00 01/27/18 10:00 01/27/18 11:00 Temperature Pulse Rate 94 H 96 H 100 H Respiratory Rate Blood Pressure Pulse Oximetry 01/27/18 12:00 01/27/18 13:00 01/27/18 14:00 Temperature 98.7 F Pulse Rate 98 H 88 102 H Respiratory Rate 16 Blood Pressure 126/82 Pulse Oximetry 96 01/27/18 14:34 01/27/18 15:00 01/27/18 15:39 Temperature 97.7 F Pulse Rate 91 H 89 Respiratory Rate 17 Blood Pressure 110/85 Pulse Oximetry 97 94 L Intake & Output 01/26/18 01/27/18 01/27/18 18:59 06:59 18:59 Intake Total 1830 / 1830 490 / 490 Output Total 1840 / 1840 700 / 700 Balance -10 / -10 -210 / -210 Weight 103.2 kg Intake: IV 250 / 250 Heparin/D5W 25,000 U/250 mL 25, 250 / 250 000 unit In 250 ml @ 1,800 UNITS/HR 18 mls/hr IV.CONT TITRATE PRN Rx#:[id number] Oral 1830 / 1830 240 / 240 Output: Urine 1840 / 1840 700 / 700 Other: Date of Last Bowel Movement 01/24/18 01/24/18 01/27/18 <Kenneth Kiser - Last Filed: 01/27/18 16:17> Results - Labs CBC & Chem 7: 01/27/18 06:33 01/25/18 08:24 Labs: Laboratory Results - last 24 hr 01/26/18 01/26/18 01/27/18 17:01 20:40 06:33 WBC 5.3 RBC 4.57 Hgb 14.2 Hct 42.1 MCV 92.1 MCH 31.1 MCHC 33.8 RDW 26.5 H Plt Count 196 MPV 7.1 Prelim Diff (Auto) Slide review pending Neut % (Auto) 70.3 H Lymph % (Auto) 8.9 L [place] % (Auto) 12.7 H Eos % (Auto) 7.1 H Baso % (Auto) 1.0 Neut # (Auto) 3.7 Lymph # (Auto) 0.5 L [place] # (Auto) 0.7 Eos # (Auto) 0.4 Baso # (Auto) 0.1 WBC Differential . Diff Scan Auto diff confirmed Differential Comment . Platelet Estimate Normal Platelet Morphology Normal APTT POC Glucose 245 H 336 H 01/27/18 01/27/18 01/27/18 06:33 07:54 11:24 WBC RBC Hgb Hct MCV MCH MCHC RDW Plt Count MPV Prelim Diff (Auto) Neut % (Auto) Lymph % (Auto) [place] % (Auto) Eos % (Auto) Baso % (Auto) Neut # (Auto) Lymph # (Auto) [place] # (Auto) Eos # (Auto) Baso # (Auto) WBC Differential Diff Scan Differential Comment Platelet Estimate Platelet Morphology APTT 44.8 H POC Glucose 196 H 281 H - Imaging Impressions Abdomen X-Ray 01/26/18 00:00 CONCLUSION: Mild constipation. No acute findings. <Ana Joy - Last Filed: 01/27/18 12:52> - Labs CBC & Chem 7: 01/27/18 06:33 01/25/18 08:24 Labs: Laboratory Results - last 24 hr 01/26/18 01/26/18 01/27/18 17:01 20:40 06:33 WBC 5.3 RBC 4.57 Hgb 14.2 Hct 42.1 MCV 92.1 MCH 31.1 MCHC 33.8 RDW 26.5 H Plt Count 196 MPV 7.1 Prelim Diff (Auto) Slide review pending Neut % (Auto) 70.3 H Lymph % (Auto) 8.9 L [place] % (Auto) 12.7 H Eos % (Auto) 7.1 H Baso % (Auto) 1.0 Neut # (Auto) 3.7 Lymph # (Auto) 0.5 L [place] # (Auto) 0.7 Eos # (Auto) 0.4 Baso # (Auto) 0.1 WBC Differential . Diff Scan Auto diff confirmed Differential Comment . Platelet Estimate Normal Platelet Morphology Normal APTT POC Glucose 245 H 336 H 01/27/18 01/27/18 01/27/18 06:33 07:54 11:24 WBC RBC Hgb Hct MCV MCH MCHC RDW Plt Count MPV Prelim Diff (Auto) Neut % (Auto) Lymph % (Auto) [place] % (Auto) Eos % (Auto) Baso % (Auto) Neut # (Auto) Lymph # (Auto) [place] # (Auto) Eos # (Auto) Baso # (Auto) WBC Differential Diff Scan Differential Comment Platelet Estimate Platelet Morphology APTT 44.8 H POC Glucose 196 H 281 H - Imaging Impressions Abdomen X-Ray 01/26/18 00:00 CONCLUSION: Mild constipation. No acute findings. 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 Benton. Pt has been referred to a surgeon at [facility] in [place] who wants a rectal EUS done for staging to determine surgical options. Colonoscopy by Dr. Carr (September 2017) --> Normal ileocecal valve. 5-6 cm cancer in the anus, lower vault, ulcerated. Mild diverticular disease rectosigmoid colon. Pathology --> Invasive adenocarcinoma, well differentiated Liver biopsy (October 2017) metastatic moderately differentiated adenocarcinoma with necrosis, consistent with metastasis from a colonic primary Pt reports some rectal pain from radiation. States initially was having diarrhea but has been having formed BMs, denies any blood in the stool. Denies nausea, vomiting, abdominal pain. - Bilateral PE and DVT- on Heparin gtt Plan: Rectal endoscopic ultrasound today Obtain consent NPO now (Last PO intake was 8 am) Stop Heparin now (witnessed RN DC Heparin gtt at 1300) Further recommendations to follow Pt has been seen and examined by myself and Dr. Kiser and this note is written on his behalf <Ana Joy - Last Filed: 01/27/18 12:52> - Attending Attestation Patient seen and examined Agree with above Continue with current supportive care Plan endoscopic ultrasound at this point Further recommendations shall follow <Kenneth Kiser - Last Filed: 01/27/18 16:17>
--- NOTE | 2018-01-27 16:42 | P.PCN ---
Date of procedure: 01/27/18 Pre-op diagnosis: Rectal cancer Post-op diagnosis: same (Anorectal cancer) Procedure: PROCEDURE PERFORMED EUS INDICATION FOR PROCEDURE Rectal cancer needing staging PROCEDURE: The procedure, risks and benefits were discussed with Patient/POA and informed consent was obtained. Anesthesia sedated Patient with Diprivan. Patient was placed in the left lateral decubitus position. Endoscopic ultrasound: The Pentax videoscope was introduced through the oropharynx and advanced to the second portion of the duodenum. FINDINGS: Patient was noted to have a small rectal polyp There was also an anorectal mass infiltrating into the pericolonic tissue is noted on the endoscopic ultrasound. A mildly hypoechoic mass measuring at least 1 x 2.3 centimeters with no regional lymph nodes no obvious vascular invasion The staging for this is T3 N0 ESTIMATED BLOOD LOSS: None SPECIMENS REMOVED: None COMPLICATIONS: None IMPRESSION: T3 N0 anorectal tumor PLAN: Further plans as per surgical oncology and oncology Anesthesia: none Surgeon: Kenneth Kiser Pathology: none sent Condition: stable Disposition: no change
[2018-01-27] MEDS: Insulin Detemir Inj 1,000 UNIT/10 ML Vial SQ SCH (20:08)
[2018-01-27] MEDS: Temazepam 15 MG Capsule PO PRN (22:10)
[2018-01-28] MEDS: LORazepam 0.5 MG Tablet PO PRN (00:11)
[2018-01-28] MEDS: Heparin Drip 25,000 UNIT/250 ML BAG IV.CONT PRN (06:37)
--- NOTE | 2018-01-28 09:06 | P.PNIM ---
Subjective Interval history: still with chronic pain in left lower leg. Physical Exam Vital signs: Vital Signs 01/27/18 10:00 01/27/18 11:00 01/27/18 12:00 Temperature 98.7 F Pulse Rate 96 H 100 H 98 H Respiratory Rate 16 Blood Pressure 126/82 Pulse Oximetry 96 01/27/18 13:00 01/27/18 14:00 01/27/18 14:34 Temperature Pulse Rate 88 102 H Respiratory Rate Blood Pressure Pulse Oximetry 97 01/27/18 15:00 01/27/18 15:39 01/27/18 16:00 Temperature 97.7 F Pulse Rate 91 H 89 88 Respiratory Rate 17 Blood Pressure 110/85 Pulse Oximetry 94 L 01/27/18 17:00 01/27/18 18:00 01/27/18 19:00 Temperature Pulse Rate 96 H 86 86 Respiratory Rate Blood Pressure Pulse Oximetry 01/27/18 20:00 01/27/18 21:00 01/27/18 22:00 Temperature 98.4 F Pulse Rate 102 H 92 H 74 Respiratory Rate 18 Blood Pressure 147/88 H Pulse Oximetry 100 01/27/18 22:43 01/27/18 23:00 01/28/18 00:00 Temperature 98.2 F Pulse Rate 90 96 H Respiratory Rate 14 18 Blood Pressure 119/75 Pulse Oximetry 96 01/28/18 01:00 01/28/18 02:00 01/28/18 03:00 Temperature Pulse Rate 82 84 57 L Respiratory Rate Blood Pressure Pulse Oximetry 01/28/18 04:00 01/28/18 05:00 01/28/18 06:00 Temperature 97.7 F Pulse Rate 78 84 88 Respiratory Rate 18 Blood Pressure 137/80 Pulse Oximetry 94 L 01/28/18 06:30 01/28/18 07:00 01/28/18 07:27 Temperature 98.0 F Pulse Rate 84 84 Respiratory Rate 16 18 Blood Pressure 145/89 H Pulse Oximetry 96 Intake & Output 01/27/18 01/28/18 01/28/18 18:59 06:59 18:59 Intake Total 960 / 960 730 / 730 50 / 50 Output Total 800 / 800 800 / 800 Balance 160 / 160 -70 / -70 50 / 50 Weight 103.2 kg Intake: IV 250 / 250 50 / 50 Heparin/D5W 25,000 U/250 mL 25, 250 / 250 50 / 50 000 unit In 250 ml @ 1,800 UNITS/HR 18 mls/hr IV.CONT TITRATE PRN Rx#:[id number] Oral 960 / 960 480 / 480 Output: Urine 800 / 800 800 / 800 Other: Date of Last Bowel Movement 01/27/18 01/28/18 01/28/18 # Bowel Movements 1 1 heart reg lung cta abd s/nt ext no edema Results - Labs CBC & Chem 7: 01/27/18 06:33 01/25/18 08:24 Laboratory Results - last 24 hr 01/27/18 01/27/18 01/27/18 11:24 17:04 19:55 APTT POC Glucose 281 H 150 H 269 H 01/27/18 01/28/18 01/28/18 22:38 06:00 07:58 APTT 36.5 H 47.1 H D POC Glucose 265 H Assessment and Plan - Assessment (1) Acute pulmonary embolism Code(s): I26.99 - Other pulmonary embolism without acute cor pulmonale Status : Acute Plan: Mr. Nixon is a pleasant 57 y/o WM with stage IV adenocarcinoma of rectal origin, oligometastatic disease to the liver currently being treated with neoadjuvant therapy consisting of Xeloda and radiation, diabetes mellitus, HTN, hyperlipidemia, ELIAZAR, secondary polycythemia, and history of DVT in his right leg 2012. Patient presented to the ER 01/21/18 with presents with left leg pain and swelling with intermittent shortness of breath. Acute extensive pulmonary emboli bilaterally Left lower extremity DVT Left lower extremity ultrasound reveals extensive DVT in the left lower extremity thrombus with occlusive thrombus in the common femoral vein, superficial femoral vein, popliteal vein and down to the distal posterior tibial vein. CT angiogram of the chest reviewed conclusion examination is positive for fairly extensive bilateral pulmonary disease embolic disease. Patient was started on heparin drip and admitted to the hospital. - case d/w Dr. Hernandez (01/24/18). Continue IV heparin - Case d/w IR, Dr. Kelly, 01/24/18 Pt has b/l PE and NO limb ischemia. NO thrombolysis at this time. 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 Diabetes mellitus type 2, noninsulin dependent - OHA resumed - levemir for now. home meds not on formulary. - NovoLog SSI - Accu checks Hypertension, benign - Home meds continued - Monitor Vianey's thyroiditis - Home dose of Synthroid continued ELIAZAR (obstructive sleep apnea) - Pt does not use CPAP Hyperlipidemia - Home meds continued (2) DVT (deep venous thrombosis) Code(s): I82.409 - Acute embolism and thrombosis of unspecified deep veins of unspecified lower extremity Status: Acute (1) Acute pulmonary embolism Qualifiers: Pulmonary embolism type: other (2) DVT (deep venous thrombosis) Qualifiers: DVT location: lower extremity Affected thrombotic vein of extremity: unspecified lower extremity proximal vein Chronicity: acute Laterality: left Qualified Code(s): I82.4Y2 - Acute embolism and thrombosis of unspecified deep veins of left proximal lower extremity
[2018-01-28] MEDS: Senna/Docusate Sodium 8.6/50 MG Tablet PO SCH (09:11)
[2018-01-28] MEDS: CAPECITABINE 500 MG PO SCH (09:11)
[2018-01-28] MEDS: Insulin NovoLOG Aspart Correctional Sugar Inj SQ SCH ×2 (09:11→13:21)
[2018-01-28] MEDS: Gabapentin 300 MG Capsule PO SCH ×2 (09:41→14:41)
[2018-01-28] MEDS: Gabapentin 100 MG Capsule PO SCH (10:07)
[2018-01-28] MEDS ORDERED: Enoxaparin Inj 100 MG/ML Syringe SQ SCH (11:00)
--- NOTE | 2018-01-28 12:32 | P.PNGI ---
Subjective Interval history: Pt resting in bed, planned to go down for IVC filter today. Denies nausea, vomiting, abdominal pain. Complaining of pain to his left leg. Physical Exam Vital signs: Vital Signs 01/27/18 13:00 01/27/18 14:00 01/27/18 14:34 Temperature Pulse Rate 88 102 H Respiratory Rate Blood Pressure Pulse Oximetry 97 01/27/18 15:00 01/27/18 15:39 01/27/18 16:00 Temperature 97.7 F Pulse Rate 91 H 89 88 Respiratory Rate 17 Blood Pressure 110/85 Pulse Oximetry 94 L 01/27/18 17:00 01/27/18 18:00 01/27/18 19:00 Temperature Pulse Rate 96 H 86 86 Respiratory Rate Blood Pressure Pulse Oximetry 01/27/18 20:00 01/27/18 21:00 01/27/18 22:00 Temperature 98.4 F Pulse Rate 102 H 92 H 74 Respiratory Rate 18 Blood Pressure 147/88 H Pulse Oximetry 100 01/27/18 22:43 01/27/18 23:00 01/28/18 00:00 Temperature 98.2 F Pulse Rate 90 96 H Respiratory Rate 14 18 Blood Pressure 119/75 Pulse Oximetry 96 01/28/18 01:00 01/28/18 02:00 01/28/18 03:00 Temperature Pulse Rate 82 84 57 L Respiratory Rate Blood Pressure Pulse Oximetry 01/28/18 04:00 01/28/18 05:00 01/28/18 06:00 Temperature 97.7 F Pulse Rate 78 84 88 Respiratory Rate 18 Blood Pressure 137/80 Pulse Oximetry 94 L 01/28/18 06:30 01/28/18 07:00 01/28/18 07:27 Temperature 98.0 F Pulse Rate 84 84 Respiratory Rate 16 18 Blood Pressure 145/89 H Pulse Oximetry 96 01/28/18 09:43 Temperature Pulse Rate Respiratory Rate Blood Pressure Pulse Oximetry 95 Intake & Output 01/27/18 01/28/18 01/28/18 18:59 06:59 18:59 Intake Total 960 / 960 730 / 730 50 / 50 Output Total 800 / 800 800 / 800 Balance 160 / 160 -70 / -70 50 / 50 Weight 103.2 kg Intake: IV 250 / 250 50 / 50 Heparin/D5W 25,000 U/250 mL 25, 250 / 250 50 / 50 000 unit In 250 ml @ 1,800 UNITS/HR 18 mls/hr IV.CONT TITRATE PRN Rx#:[id number] Oral 960 / 960 480 / 480 Output: Urine 800 / 800 800 / 800 Other: Date of Last Bowel Movement 01/27/18 01/28/18 01/28/18 # Bowel Movements 1 1 - Constitutional no acute distress - Routine HEENT Exam Head: Present: normocephalic, atraumatic - Routine Respiratory Exam Absent: accessory muscle use - Routine Abdominal Exam Present: soft, normoactive bowel sounds. Absent: tenderness, distended - Routine Skin Exam Present: dry, warm - Routine Neurological Exam Present: alert, oriented X3 Results - Labs CBC & Chem 7: 01/27/18 06:33 01/25/18 08:24 Laboratory Results - last 24 hr 01/27/18 01/27/18 01/27/18 17:04 19:55 22:38 APTT 36.5 H POC Glucose 150 H 269 H 01/28/18 01/28/18 06:00 07:58 APTT 47.1 H D POC Glucose 265 H Assessment and Plan - Plan Assessment: - Rectal cancer with request for rectal EUS for staging purposes This is a 57 yo M with stage IV adenocarcinoma of the rectum with oligometastatic disease to the liver who is currently being treatment with oral chemotherapy and radiation by Dr. Benton. Pt has been referred to a surgeon at [facility] in [place] who wants a rectal EUS done for staging to determine surgical options. Colonoscopy by Dr. Carr (September 2017) --> Normal ileocecal valve. 5-6 cm cancer in the anus, lower vault, ulcerated. Mild diverticular disease rectosigmoid colon. Pathology --> Invasive adenocarcinoma, well differentiated Liver biopsy (October 2017) metastatic moderately differentiated adenocarcinoma with necrosis, consistent with metastasis from a colonic primary Pt reports some rectal pain from radiation. States initially was having diarrhea but has been having formed BMs, denies any blood in the stool. Denies nausea, vomiting, abdominal pain. - Bilateral PE and DVT- on Heparin gtt (01/28) S/P rectal EUS --> Small rectal polyp. Anorectal mass infiltarting into the pericolonic tissue is noted on the EUS. A mildly hypoechoic mass measuring at least 1 x 2.3 cm with no regional lymph nodes not obvious vascular invasion. The staging for this is T3 N0. Pt going for IVC filter placement today Plan: Follow up with surgeon at [facility] Following with branch director Our service will sign off Have pt follow up as needed Pt has been seen and examined by myself and Dr. Sales and this note is written on her behalf
[2018-01-28] MEDS ORDERED: Iohexol 350 MG/ML 50 ML Vial (for Rad Diag) IVCONTRAST ONE (13:41)
--- NOTE | 2018-01-28 14:24 | P.RAD ---
Post Procedure Progress Note - Pre Procedure Diagnosis (1) DVT (deep venous thrombosis) (2) Acute pulmonary embolism - Post Procedure Diagnosis (1) DVT (deep venous thrombosis) (2) Acute pulmonary embolism - Procedure Information Procedure Date: 01/28/18 Supervising Radiologist: Elvin Angel MD Estimated blood loss (mL): 2 Anesthesia: Local, Analgesia - Plan of Activity Patient to Unit: Nursing Unit Patient Condition: Good See PACS Report for procedural detail/treatment. Vascular - Venous Procedure Abdominal Procedure(s): Retrievable IVC Filter
--- NOTE | 2018-01-28 16:42 | IR ---
EXAM DATE: 01/28/2018 2:04 PM EDT AGE/SEX: 57 years / Male INDICATIONS: Patient presents with rectal cancer history in need of vena cava filter placement due t o deep vein thrombosis. CLINICAL DATA: This is the patient's subsequent encounter. Patient reports that signs and symptoms h ave been present for 1 week and indicates a pain score of 7/10. MEDICAL/SURGICAL HISTORY: . Rectal cancer, DM, HTN, ELIAZAR, RBBB, HX of LE DVT, Vianey's thyroi ditis. . Right knee arthroscopy 2012. COMPARISON: No prior exams available for comparison. FLUORO TIME (min): 3.07 IMAGE SERIES: 5 ACCESS SITE: Right internal jugular vein CONTRAST (cc): 20cc Omnipaque (iohexol) 350 MEDICATION(S): 2 g cefazolin (Ancef) IV DEVICE(S): Right vein 7fr inferior vena cava [place] filter . . PROCEDURE : 1. Ultrasound-guided venipuncture. 2. Inferior venacavogram. 3. Inferior vena cava filter placement. 4. Conscious sedation with continuous EKG and oximetry monitoring. The risks, benefits and alternatives to the procedure were explained and verbal and written consent w as obtained. The site was prepped in sterile fashion. Full sterile technique was used, including ca p, mask, sterile gloves and gown and a large sterile sheet. Hand hygiene and 2% chlorhexidine and/or betadine/alcohol prep was utilized per protocol for cutaneous antisepsis. Sterile gel and sterile p robe cover were utilized for ultrasound guidance. The skin and subcutaneous tissues were infiltrated with local anesthetic solution. With ultrasound and fluoroscopic guidance the targeted vein was punctured and a vascular sheath was p laced. Inferior venacavogram was performed to demonstrate level of renal veins. No caval thrombus was identified. The prescribed filter was deployed in the infrarenal inferior vena cava. Following deplo yment the filter was identified in good position. Conscious sedation was performed with the prescribed dosages and duration as above in the presence of an independent trained radiology nurse to assist in the monitoring of the patient. EKG and oximetry remained stable throughout the procedure. The patient tolerated the procedure well and there were n o complications. The patient was sent to post anesthesia recovery in stable condition. CONCLUSION: 1. Uncomplicated inferior vena cava filter placement as above. Please note, this is a removable filt er. Electronically signed by: Elvin Angel MD 01/28/2018 4:40 PM EDT
--- NOTE | 2018-02-07 08:36 | P.DS ---
Date of admission: 01/21/18 20:57 Primary care physician: Axel Manrique MD Anticipated date of discharge: 01/28/18 Brief History from admission: Mr. Nixon is a pleasant 57 y/o WM with stage IV adenocarcinoma of rectal origin, oligometastatic disease to the liver currently being treated with neoadjuvant therapy consisting of Xeloda and radiation, diabetes, mellitus, HTN , hyperlipidemia, ELIAZAR, and secondary polycythemia. Patient presented tot the ER 01/21/18 with presents with left leg pain and swelling for the past 2 weeks with intermittent shortness of breath. Quality pain is sharp. He went to his oncologist Dr. Hernandez and they advised him to come here for possible blood clot as he has history of DVT in his right leg 2012. Left lower extremity ultrasound reveals extensive DVT in the left lower extremity thrombus with occlusive thrombus in the common femoral vein, superficial femoral vein, popliteal vein and down to the distal posterior tibial vein. CT angiogram of the chest reviewed conclusion examination is positive for fairly extensive bilateral pulmonary disease embolic disease. Patient was started on heparin drip and admitted to the hospital. Patient c/o rectal pain and LLE pain not controlled by Dilaudid. Patient also endorses recent episodes of diarrhea after radiation. Patient denies chest pain, fevers or chills. 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 Hernandez Diabetes mellitus HTN Hypertriglyceridemia Vianey's thyroiditis ELIAZAR Secondary Polycythemia RBBB Hx of LE DVT following surgery in 2012 Past Surgical History Right knee arthroscopy 2012 Family History Noncontributory Social History (+)Tobacco use approximately 1 pack per day Denies any alcohol or illicit drug use Pt currently unemployed DS: Diagnosis - Discharge Diagnosis (1) Acute pulmonary embolism Status: Acute (2) DVT (deep venous thrombosis) Status: Acute DS: Summary Hospital Course: - Assessment (1) Acute pulmonary embolism Code(s): I26.99 - Other pulmonary embolism without acute cor pulmonale Status : Acute Plan: Mr. Nixon is a pleasant 57 y/o WM with stage IV adenocarcinoma of rectal origin, oligometastatic disease to the liver currently being treated with neoadjuvant therapy consisting of Xeloda and radiation, diabetes mellitus, HTN, hyperlipidemia, ELIAZAR, secondary polycythemia, and history of DVT in his right leg 2012. Patient presented to the ER 01/21/18 with presents with left leg pain and swelling with intermittent shortness of breath. Acute extensive pulmonary emboli bilaterally Left lower extremity DVT Left lower extremity ultrasound reveals extensive DVT in the left lower extremity thrombus with occlusive thrombus in the common femoral vein, superficial femoral vein, popliteal vein and down to the distal posterior tibial vein. CT angiogram of the chest reviewed conclusion examination is positive for fairly extensive bilateral pulmonary disease embolic disease. Patient was started on heparin drip and admitted to the hospital. - case d/w Dr. Hernandez (01/24/18). Continue IV heparin - Case d/w IR, Dr. Kelly, 01/24/18 Pt has b/l PE and NO limb ischemia. NO thrombolysis at this time. 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 - retrievable IVC filter placed today on day of dc Pain - uncontrolled c/o rectal pain Left lower extremity pain see above. Diabetes mellitus type 2, noninsulin dependent - OHA resumed - levemir for now. home meds not on formulary. - NovoLog SSI - Accu checks Hypertension, benign - Home meds continued - Monitor Vianey's thyroiditis - Home dose of Synthroid continued ELIAZAR (obstructive sleep apnea) - Pt does not use CPAP Hyperlipidemia - Home meds continued (2) DVT (deep venous thrombosis) Code(s): I82.409 - Acute embolism and thrombosis of unspecified deep veins of unspecified lower extremity Status: Acute (1) Acute pulmonary embolism Qualifiers: Pulmonary embolism type: other - Time Spent with Patient Total time spent providing and/or coordinating discharge services: Greater than 30 minutes - Quality: VTE Deep Vein Thrombosis/Pulmonary Embolism Present on Admission: Yes Exam Vital signs: heart reg lungcta abd s/nt ext no edema Results Procedures completed during hospitalization: cta chest rectal u/s ivc filter placed - Impressions ITS Impressions Chest CTA 01/21/18 16:56 CONCLUSION: 1. Examination is positive for fairly extensive bilateral pulmonary embolic disease. 2. Severe coronary calcifications. Venous Doppler Study 01/21/18 16:56 CONCLUSION: 1. Extensive deep venous thrombosis in the left lower extremity as above. Abdomen X-Ray 01/26/18 00:00 CONCLUSION: Mild constipation. No acute findings. IVC Filter Placement X-Ray 01/28/18 00:00 CONCLUSION: 1. Uncomplicated inferior vena cava filter placement as above. Please note, this is a removable filter. Discharge Plan - Discharge Disposition Patient Disposition: [facility] Inpatient - Discharge Condition Condition: Stable - Discharge Order Discharge Orders: Discharge Order (Routine); Ordered 01/28/18 Ordered By: Travis Austin - Discharge Details Anticipated Discharge Date: 01/28/18 - Physicians Team Primary Care Provider: Axel Manrique Attending Provider: Babak Martinez Other Providers: Galdino Hernandez MD ; Kelly Sales MD
== END 2018-01-28 16:29 ==
LOC: NEPE 16:23 → NEDA 20:57 → HCIS 23:10 → NEDA 23:31
PROVIDERS: ADMIT Hospitalist; ATTEND Hospitalist

== ENCOUNTER 2018-02-28 09:42 | Inpatient (IN) ==
--- NOTE | 2018-02-28 10:05 | ED ---
HPI General Chief complaint: Altered Mental Status Stated complaint: Confused Time Seen by Provider: 02/28/18 09:51 History of Present Illness HPI narrative: Patient 57-year-old male presents emergency department with his landlord for evaluation of altered mental status lower extremity swelling particular left leg. This apparently is going on for the past 2 days. Patient has a history of metastatic rectal cancer. He had a PET scan recently which he informs me was negative. He is not currently on any chemotherapy. Does do radiation therapy with Dr. morrow. She remains concerned because he has been confused and intermittently hypotensive as well. Does have a history of IVC filter placement here in January of this year. Has a history of DVT PE and is supposed to be on Lovenox but has been taken for the past 4 days because the pharmacy was out of it. My examination patient alert and awake and oriented, complains of lower extremity swelling and weakness but denies any saddle anesthesia. Related Data Home Medications Medication Instructions Recorded Confirmed capecitabine [Xeloda] 1,500 mg PO Q12H 01/21/18 02/28/18 dapagliflozin [Farxiga] 10 mg PO QAM 01/21/18 02/28/18 hydrocortisone [Proctozone-HC] 1 applic OK DAILY PRN 02/28/18 02/28/18 insulin degludec [Tresiba 50 unit SUB-Q DAILY 02/28/18 02/28/18 FlexTouch U-100] lisinopril 20 mg PO DAILY 02/28/18 02/28/18 pravastatin 10 mg PO DAILY 02/28/18 02/28/18 Previous Rx's Medication Instructions Recorded acetaminophen 650 mg PO Q4H PRN tab 01/30/18 morphine 30 mg PO Q12HR #60 tab 01/30/18 oxycodone 30 mg PO Q4H PRN #120 tab 01/30/18 Allergies Allergy/AdvReac Type Severity Reaction Status Date / Time warfarin Allergy Unknown Rash Verified 11/12/17 13:02 Review of Systems ROS: all other systems reviewed are negative [facility] Social History Social History Substance History: No History of Abuse Second Hand Smoke Exposure: Yes Smoking Status: Current every day smoker Tobacco Type: Cigarettes How Often Do You Have a Drink Containing Alcohol: Never Recent Travel in [facility] within the Last 8 Weeks: No Recent Out of Country Travel within the Last 8 Weeks: No Immunization History Tetanus Immunization: Unsure Exam Narrative Exam Narrative: GENERAL: WD/WN somnolent male in nad. SKIN: Focused skin assessment warm/dry. HEAD: Atraumatic. Normocephalic. EYES: Pupils equal and round. No scleral icterus. No injection or drainage. ENT: No nasal bleeding or discharge. Mucous membranes pink and moist. NECK: Trachea midline. No JVD. CARDIOVASCULAR: Regular rate and rhythm. No murmur appreciated. RESPIRATORY: No accessory muscle use. Clear to auscultation. Breath sounds equal bilaterally. GASTROINTESTINAL: Abdomen soft, non-tender, nondistended. Hepatic and splenic margins not palpable. MUSCULOSKELETAL: No obvious deformities. No clubbing. No cyanosis. Significant edema of bilateral lower extremities but much worse on the left. PMS intact distally on all four extremities. NEUROLOGICAL: Awake and alert. No obvious cranial nerve deficits. Motor grossly within normal limits. Normal speech. PSYCHIATRIC: Appropriate mood and affect; insight and judgment normal. Course Initial Documented Vital Signs Temperature 98.1 F 02/28/18 09:53 Pulse Rate 100 H 02/28/18 09:53 Respiratory Rate 18 02/28/18 09:53 Blood Pressure 95/52 L 02/28/18 09:53 Pulse Oximetry 96 02/28/18 09:53 Last Documented Vital Signs Temperature 98.6 F 03/05/18 07:00 Pulse Rate 74 03/05/18 07:00 Respiratory Rate 16 03/05/18 07:00 Blood Pressure 142/84 H 03/05/18 07:00 Pulse Oximetry 96 03/05/18 07:50 Medical Decision Making [facility] Narrative Medical decision making narrative: Patient is a 57-year-old male presents emergency department for evaluation of leg pain and back pain. Has a history of rectal cancer, seen by Dr. morrow. Not currently on chemotherapy. He does have a significant acute kidney injury with a creatinine of 6, some mild acidosis. Patient initially somewhat hypotensive, was given 1 L normal saline and his blood pressure returned normal, 4 mg of morphine was added. Additional liter of fluid was sent after his labs return. Chest x-ray negative by my wet read, CT scan of the lumbar spine show lumbar spine shows degenerative disc disease but there is a spur impinging on the transverse left S1 nerve root which I do not think explains his pain, the patient does not have any urinary difficulties currently. Think this can be followed up as an outpatient basis. Patient was discussed with Dr. Austin for admission to the hospital. VBG was sent as well which confirms some mild metabolic acidosis. Medical Screen Exam Complete: Yes Emergency Medical Condition: Yes Differential Diagnosis Differential Diagnosis: DOMINGUEZ, DVT, Rectal CA, overmedication. Lab Data Lab results narrative: I have reviewed labs at the time of admission, showing metabolic acidosis with significant DOMINGUEZ with Cr of 6.6. Result diagrams: 03/05/18 04:40 03/05/18 04:40 Lab Results 02/28/18 02/28/18 02/28/18 Range/Units 10:15 10:15 10:15 WBC 8.6 (4.0-11.0) th/mm3 RBC 3.59 L (4.50-5.90) mil/mm3 Hgb 12.7 L (13.0-17.0) gm/dL Hct 37.2 L (39.0-51.0) % MCV 103.5 H (80.0-100.0) fL MCH 35.2 H (27.0-34.0) pg MCHC 34.0 (32.0-36.0) % RDW 21.7 H (11.6-17.2) % Plt Count 76 L D (150-450) th/mm3 MPV 7.7 (7.0-11.0) fL Prelim Diff (Auto) Slide review pending Neut % (Auto) 88.1 H (16.0-70.0) % Lymph % (Auto) 2.7 L (9.0-44.0) % [place] % (Auto) 6.5 (0.0-8.0) % Eos % (Auto) 2.1 (0.0-4.0) % Baso % (Auto) 0.6 (0.0-2.0) % Neut # (Auto) 7.6 (1.8-7.7) th/mm3 Lymph # (Auto) 0.2 L (1.0-4.8) th/mm3 [place] # (Auto) 0.6 (0.0-0.9) th/mm3 Eos # (Auto) 0.2 (0.0-0.4) th/mm3 Baso # (Auto) 0.1 (0.0-0.2) th/mm3 WBC Differential Manual diff final Diff Scan Seg Neuts % (Manual) 84 H (16-70) % Band Neuts % (Manual) 4 (0-6) % Lymphocytes % (Manual) 2 L (9-44) % Monocytes % (Manual) 8 (0-8) % Eosinophils % (Manual) 2 (0-4) % Abs Neuts (Manual) 7.6 (1.8-7.7) th/mm3 Differential Comment . Platelet Estimate Low L (Normal) Platelet Morphology Normal (Normal) PT 11.4 (9.8-11.6) sec INR 1.1 Ratio APTT 26.0 (24.3-30.1) sec Puncture Site Patient Temperature VBG pH (7.360-7.400) VBG pCO2 (44-48) mmHG VBG pO2 (35-40) mmHG VBG HCO3 (22-26) mmol/L VBG O2 Saturation (70-76) % VBG O2 Content (9.0-17.0) Vol % VBG Base Excess (-2-2) mmol/L VBG Carboxyhemoglobin (0-4) % VBG Methemoglobin (0-2) % Hemoglobin (12.0-16.0) G/DL O2 Delivery Device Inspired O2 % Critical Value Sodium (136-145) meq/L Potassium (3.5-5.1) meq/L Chloride (98-107) meq/L Carbon Dioxide (21.0-32.0) meq/L Anion Gap (5-15) meq/L BUN (7-18) mg/dL Creatinine (0.60-1.30) mg/dL Estimated GFR (>89) mL/min POC Glucose (68-110) mg/dl Random Glucose (74-106) mg/dL Lactic Acid (0.4-2.0) mmol/L Uric Acid (2.6-7.2) mg/dl Calcium (8.5-10.1) mg/dL Phosphorus (2.5-4.9) mg/dL Total Bilirubin (0.2-1.0) mg/dL AST (15-37) U/L ALT (12-78) U/L Alkaline Phosphatase (45-117) U/L Ammonia (11-32) mcmol/L Troponin I (0.02-0.05) ng/mL Total Protein (6.4-8.2) g/dL Albumin (3.4-5.0) g/dL Carcinoembryonic Ag (0.2-5.0) ng/mL TSH 2.150 (0.358-3.740) uIU/mL Urine Color (Yellw/Straw) Urine Clarity (Clear) Urine pH (5.0-8.5) Ur Specific [place] (1.002-1.035) Urine Protein (Neg-Trace) mg/dL Urine Glucose (UA) (Negative) mg/dL Urine Ketones (Negative) mg/dL Urine Occult Blood (Negative) Urine Nitrate (Negative) Urine Bilirubin (Negative) Urine Urobilinogen (Less than 2) mg/dL Ur Leukocyte Esterase (Negative) Urine RBC (0-3) /hpf Urine WBC (0-5) /hpf Amorphous Sediment (None) /hpf Urine Bacteria (None) /hpf Hyaline Casts (0-3) /lpf Urine Mucus (Occasional) /lpf Micro UA Comment Ur Microscopic Review Urine Culture Comments Urine Eosinophils (None Seen) /HPF Ur Random Creatinine (27-300) mg/dL Ur Random Sodium meq/L IgG (660-1640) mg/dL IgA (93-514) mg/dL IgM (40-247) mg/dL [place]/Lambda Ratio (1.57-3.93) GRETA Interpretation KINJAL Screen (Neg) Complement C3 (90-180) mg/dL Complement C4 (10-40) mg/dL [place] Light Chain Anal (170-370) mg/dL Lambda Light Chain Anal (90-210) mg/dL Hepatitis A IgM Ab (Nonreactive) Hep Bs Antigen (Nonreactive) Hep B Core IgM Ab (Nonreactive) Hep C IgG Ab (Nonreactive) 02/28/18 02/28/18 02/28/18 Range/Units 10:18 10:18 13:40 WBC (4.0-11.0) th/mm3 RBC (4.50-5.90) mil/mm3 Hgb (13.0-17.0) gm/dL Hct (39.0-51.0) % MCV (80.0-100.0) fL MCH (27.0-34.0) pg MCHC (32.0-36.0) % RDW (11.6-17.2) % Plt Count (150-450) th/mm3 MPV (7.0-11.0) fL Prelim Diff (Auto) Neut % (Auto) (16.0-70.0) % Lymph % (Auto) (9.0-44.0) % [place] % (Auto) (0.0-8.0) % Eos % (Auto) (0.0-4.0) % Baso % (Auto) (0.0-2.0) % Neut # (Auto) (1.8-7.7) th/mm3 Lymph # (Auto) (1.0-4.8) th/mm3 [place] # (Auto) (0.0-0.9) th/mm3 Eos # (Auto) (0.0-0.4) th/mm3 Baso # (Auto) (0.0-0.2) th/mm3 WBC Differential Diff Scan Seg Neuts % (Manual) (16-70) % Band Neuts % (Manual) (0-6) % Lymphocytes % (Manual) (9-44) % Monocytes % (Manual) (0-8) % Eosinophils % (Manual) (0-4) % Abs Neuts (Manual) (1.8-7.7) th/mm3 Differential Comment Platelet Estimate (Normal) Platelet Morphology (Normal) PT (9.8-11.6) sec INR Ratio APTT (24.3-30.1) sec Puncture Site Drawn by rn Patient Temperature 98.6 VBG pH 7.25 L* (7.360-7.400) VBG pCO2 40 L (44-48) mmHG VBG pO2 28 L* (35-40) mmHG VBG HCO3 17 L (22-26) mmol/L VBG O2 Saturation 42 L (70-76) % VBG O2 Content 6.9 L (9.0-17.0) Vol % VBG Base Excess -9.1 L (-2-2) mmol/L VBG Carboxyhemoglobin 2.1 (0-4) % VBG Methemoglobin 0.7 (0-2) % Hemoglobin 11.6 L (12.0-16.0) G/DL O2 Delivery Device Room air Inspired O2 21 % Critical Value Yes Sodium 132 L (136-145) meq/L Potassium 4.1 (3.5-5.1) meq/L Chloride 96 L (98-107) meq/L Carbon Dioxide 16.8 L (21.0-32.0) meq/L Anion Gap 19 H (5-15) meq/L BUN 68 H (7-18) mg/dL Creatinine 6.06 H (0.60-1.30) mg/dL Estimated GFR 10 L (>89) mL/min POC Glucose (68-110) mg/dl Random Glucose 141 H (74-106) mg/dL Lactic Acid (0.4-2.0) mmol/L Uric Acid (2.6-7.2) mg/dl Calcium 7.9 L (8.5-10.1) mg/dL Phosphorus (2.5-4.9) mg/dL Total Bilirubin 0.9 (0.2-1.0) mg/dL AST 23 (15-37) U/L ALT 15 (12-78) U/L Alkaline Phosphatase 93 (45-117) U/L Ammonia 12 (11-32) mcmol/L Troponin I Less than 0.02 L (0.02-0.05) ng/mL Total Protein 6.2 L (6.4-8.2) g/dL Albumin 3.4 (3.4-5.0) g/dL Carcinoembryonic Ag (0.2-5.0) ng/mL TSH (0.358-3.740) uIU/mL Urine Color (Yellw/Straw) Urine Clarity (Clear) Urine pH (5.0-8.5) Ur Specific [place] (1.002-1.035) Urine Protein (Neg-Trace) mg/dL Urine Glucose (UA) (Negative) mg/dL Urine Ketones (Negative) mg/dL Urine Occult Blood (Negative) Urine Nitrate (Negative) Urine Bilirubin (Negative) Urine Urobilinogen (Less than 2) mg/dL Ur Leukocyte Esterase (Negative) Urine RBC (0-3) /hpf Urine WBC (0-5) /hpf Amorphous Sediment (None) /hpf Urine Bacteria (None) /hpf Hyaline Casts (0-3) /lpf Urine Mucus (Occasional) /lpf Micro UA Comment Ur Microscopic Review Urine Culture Comments Urine Eosinophils (None Seen) /HPF Ur Random Creatinine (27-300) mg/dL Ur Random Sodium meq/L IgG (660-1640) mg/dL IgA (93-514) mg/dL IgM (40-247) mg/dL [place]/Lambda Ratio (1.57-3.93) GRETA Interpretation KINJAL Screen (Neg) Complement C3 (90-180) mg/dL Complement C4 (10-40) mg/dL [place] Light Chain Anal (170-370) mg/dL Lambda Light Chain Anal (90-210) mg/dL Hepatitis A IgM Ab (Nonreactive) Hep Bs Antigen (Nonreactive) Hep B Core IgM Ab (Nonreactive) Hep C IgG Ab (Nonreactive) 02/28/18 02/28/18 02/28/18 Range/Units 14:20 16:54 21:15 WBC (4.0-11.0) th/mm3 RBC (4.50-5.90) mil/mm3 Hgb (13.0-17.0) gm/dL Hct (39.0-51.0) % MCV (80.0-100.0) fL MCH (27.0-34.0) pg MCHC (32.0-36.0) % RDW (11.6-17.2) % Plt Count (150-450) th/mm3 MPV (7.0-11.0) fL Prelim Diff (Auto) Neut % (Auto) (16.0-70.0) % Lymph % (Auto) (9.0-44.0) % [place] % (Auto) (0.0-8.0) % Eos % (Auto) (0.0-4.0) % Baso % (Auto) (0.0-2.0) % Neut # (Auto) (1.8-7.7) th/mm3 Lymph # (Auto) (1.0-4.8) th/mm3 [place] # (Auto) (0.0-0.9) th/mm3 Eos # (Auto) (0.0-0.4) th/mm3 Baso # (Auto) (0.0-0.2) th/mm3 WBC Differential Diff Scan Seg Neuts % (Manual) (16-70) % Band Neuts % (Manual) (0-6) % Lymphocytes % (Manual) (9-44) % Monocytes % (Manual) (0-8) % Eosinophils % (Manual) (0-4) % Abs Neuts (Manual) (1.8-7.7) th/mm3 Differential Comment Platelet Estimate (Normal) Platelet Morphology (Normal) PT (9.8-11.6) sec INR Ratio APTT 57.6 H D (24.3-30.1) sec Puncture Site Patient Temperature VBG pH (7.360-7.400) VBG pCO2 (44-48) mmHG VBG pO2 (35-40) mmHG VBG HCO3 (22-26) mmol/L VBG O2 Saturation (70-76) % VBG O2 Content (9.0-17.0) Vol % VBG Base Excess (-2-2) mmol/L VBG Carboxyhemoglobin (0-4) % VBG Methemoglobin (0-2) % Hemoglobin (12.0-16.0) G/DL O2 Delivery Device Inspired O2 % Critical Value Sodium (136-145) meq/L Potassium (3.5-5.1) meq/L Chloride (98-107) meq/L Carbon Dioxide (21.0-32.0) meq/L Anion Gap (5-15) meq/L BUN (7-18) mg/dL Creatinine (0.60-1.30) mg/dL Estimated GFR (>89) mL/min POC Glucose 119 H (68-110) mg/dl Random Glucose (74-106) mg/dL Lactic Acid 1.2 (0.4-2.0) mmol/L Uric Acid (2.6-7.2) mg/dl Calcium (8.5-10.1) mg/dL Phosphorus (2.5-4.9) mg/dL Total Bilirubin (0.2-1.0) mg/dL AST (15-37) U/L ALT (12-78) U/L Alkaline Phosphatase (45-117) U/L Ammonia (11-32) mcmol/L Troponin I (0.02-0.05) ng/mL Total Protein (6.4-8.2) g/dL Albumin (3.4-5.0) g/dL Carcinoembryonic Ag (0.2-5.0) ng/mL TSH (0.358-3.740) uIU/mL Urine Color (Yellw/Straw) Urine Clarity (Clear) Urine pH (5.0-8.5) Ur Specific [place] (1.002-1.035) Urine Protein (Neg-Trace) mg/dL Urine Glucose (UA) (Negative) mg/dL Urine Ketones (Negative) mg/dL Urine Occult Blood (Negative) Urine Nitrate (Negative) Urine Bilirubin (Negative) Urine Urobilinogen (Less than 2) mg/dL Ur Leukocyte Esterase (Negative) Urine RBC (0-3) /hpf Urine WBC (0-5) /hpf Amorphous Sediment (None) /hpf Urine Bacteria (None) /hpf Hyaline Casts (0-3) /lpf Urine Mucus (Occasional) /lpf Micro UA Comment Ur Microscopic Review Urine Culture Comments Urine Eosinophils (None Seen) /HPF Ur Random Creatinine (27-300) mg/dL Ur Random Sodium meq/L IgG (660-1640) mg/dL IgA (93-514) mg/dL IgM (40-247) mg/dL [place]/Lambda Ratio (1.57-3.93) GRETA Interpretation KINJAL Screen (Neg) Complement C3 (90-180) mg/dL Complement C4 (10-40) mg/dL [place] Light Chain Anal (170-370) mg/dL Lambda Light Chain Anal (90-210) mg/dL Hepatitis A IgM Ab (Nonreactive) Hep Bs Antigen (Nonreactive) Hep B Core IgM Ab (Nonreactive) Hep C IgG Ab (Nonreactive) 02/28/18 02/28/18 02/28/18 Range/Units 21:15 21:15 21:38 WBC (4.0-11.0) th/mm3 RBC (4.50-5.90) mil/mm3 Hgb (13.0-17.0) gm/dL Hct (39.0-51.0) % MCV (80.0-100.0) fL MCH (27.0-34.0) pg MCHC (32.0-36.0) % RDW (11.6-17.2) % Plt Count (150-450) th/mm3 MPV (7.0-11.0) fL Prelim Diff (Auto) Neut % (Auto) (16.0-70.0) % Lymph % (Auto) (9.0-44.0) % [place] % (Auto) (0.0-8.0) % Eos % (Auto) (0.0-4.0) % Baso % (Auto) (0.0-2.0) % Neut # (Auto) (1.8-7.7) th/mm3 Lymph # (Auto) (1.0-4.8) th/mm3 [place] # (Auto) (0.0-0.9) th/mm3 Eos # (Auto) (0.0-0.4) th/mm3 Baso # (Auto) (0.0-0.2) th/mm3 WBC Differential Diff Scan Seg Neuts % (Manual) (16-70) % Band Neuts % (Manual) (0-6) % Lymphocytes % (Manual) (9-44) % Monocytes % (Manual) (0-8) % Eosinophils % (Manual) (0-4) % Abs Neuts (Manual) (1.8-7.7) th/mm3 Differential Comment Platelet Estimate (Normal) Platelet Morphology (Normal) PT (9.8-11.6) sec INR Ratio APTT (24.3-30.1) sec Puncture Site Patient Temperature VBG pH (7.360-7.400) VBG pCO2 (44-48) mmHG VBG pO2 (35-40) mmHG VBG HCO3 (22-26) mmol/L VBG O2 Saturation (70-76) % VBG O2 Content (9.0-17.0) Vol % VBG Base Excess (-2-2) mmol/L VBG Carboxyhemoglobin (0-4) % VBG Methemoglobin (0-2) % Hemoglobin (12.0-16.0) G/DL O2 Delivery Device Inspired O2 % Critical Value Sodium (136-145) meq/L Potassium (3.5-5.1) meq/L Chloride (98-107) meq/L Carbon Dioxide (21.0-32.0) meq/L Anion Gap (5-15) meq/L BUN (7-18) mg/dL Creatinine (0.60-1.30) mg/dL Estimated GFR (>89) mL/min POC Glucose 142 H (68-110) mg/dl Random Glucose (74-106) mg/dL Lactic Acid (0.4-2.0) mmol/L Uric Acid (2.6-7.2) mg/dl Calcium (8.5-10.1) mg/dL Phosphorus 8.4 H (2.5-4.9) mg/dL Total Bilirubin (0.2-1.0) mg/dL AST (15-37) U/L ALT (12-78) U/L Alkaline Phosphatase (45-117) U/L Ammonia (11-32) mcmol/L Troponin I (0.02-0.05) ng/mL Total Protein (6.4-8.2) g/dL Albumin (3.4-5.0) g/dL Carcinoembryonic Ag (0.2-5.0) ng/mL TSH (0.358-3.740) uIU/mL Urine Color (Yellw/Straw) Urine Clarity (Clear) Urine pH (5.0-8.5) Ur Specific [place] (1.002-1.035) Urine Protein (Neg-Trace) mg/dL Urine Glucose (UA) (Negative) mg/dL Urine Ketones (Negative) mg/dL Urine Occult Blood (Negative) Urine Nitrate (Negative) Urine Bilirubin (Negative) Urine Urobilinogen (Less than 2) mg/dL Ur Leukocyte Esterase (Negative) Urine RBC (0-3) /hpf Urine WBC (0-5) /hpf Amorphous Sediment (None) /hpf Urine Bacteria (None) /hpf Hyaline Casts (0-3) /lpf Urine Mucus (Occasional) /lpf Micro UA Comment Ur Microscopic Review Urine Culture Comments Urine Eosinophils (None Seen) /HPF Ur Random Creatinine (27-300) mg/dL Ur Random Sodium meq/L IgG 444 L (660-1640) mg/dL IgA 146 (93-514) mg/dL IgM 14 L (40-247) mg/dL [place]/Lambda Ratio 1.37 L (1.57-3.93) GRETA Interpretation KINJAL Screen Neg (Neg) Complement C3 112 (90-180) mg/dL Complement C4 (10-40) mg/dL [place] Light Chain Anal 107 L (170-370) mg/dL Lambda Light Chain Anal 78 L (90-210) mg/dL Hepatitis A IgM Ab (Nonreactive) Hep Bs Antigen (Nonreactive) Hep B Core IgM Ab (Nonreactive) Hep C IgG Ab (Nonreactive) 02/28/18 02/28/18 02/28/18 Range/Units 22:03 22:03 22:03 WBC (4.0-11.0) th/mm3 RBC (4.50-5.90) mil/mm3 Hgb (13.0-17.0) gm/dL Hct (39.0-51.0) % MCV (80.0-100.0) fL MCH (27.0-34.0) pg MCHC (32.0-36.0) % RDW (11.6-17.2) % Plt Count (150-450) th/mm3 MPV (7.0-11.0) fL Prelim Diff (Auto) Neut % (Auto) (16.0-70.0) % Lymph % (Auto) (9.0-44.0) % [place] % (Auto) (0.0-8.0) % Eos % (Auto) (0.0-4.0) % Baso % (Auto) (0.0-2.0) % Neut # (Auto) (1.8-7.7) th/mm3 Lymph # (Auto) (1.0-4.8) th/mm3 [place] # (Auto) (0.0-0.9) th/mm3 Eos # (Auto) (0.0-0.4) th/mm3 Baso # (Auto) (0.0-0.2) th/mm3 WBC Differential Diff Scan Seg Neuts % (Manual) (16-70) % Band Neuts % (Manual) (0-6) % Lymphocytes % (Manual) (9-44) % Monocytes % (Manual) (0-8) % Eosinophils % (Manual) (0-4) % Abs Neuts (Manual) (1.8-7.7) th/mm3 Differential Comment Platelet Estimate (Normal) Platelet Morphology (Normal) PT (9.8-11.6) sec INR Ratio APTT (24.3-30.1) sec Puncture Site Patient Temperature VBG pH (7.360-7.400) VBG pCO2 (44-48) mmHG VBG pO2 (35-40) mmHG VBG HCO3 (22-26) mmol/L VBG O2 Saturation (70-76) % VBG O2 Content (9.0-17.0) Vol % VBG Base Excess (-2-2) mmol/L VBG Carboxyhemoglobin (0-4) % VBG Methemoglobin (0-2) % Hemoglobin (12.0-16.0) G/DL O2 Delivery Device Inspired O2 % Critical Value Sodium (136-145) meq/L Potassium (3.5-5.1) meq/L Chloride (98-107) meq/L Carbon Dioxide (21.0-32.0) meq/L Anion Gap (5-15) meq/L BUN (7-18) mg/dL Creatinine (0.60-1.30) mg/dL Estimated GFR (>89) mL/min POC Glucose (68-110) mg/dl Random Glucose (74-106) mg/dL Lactic Acid (0.4-2.0) mmol/L Uric Acid (2.6-7.2) mg/dl Calcium (8.5-10.1) mg/dL Phosphorus (2.5-4.9) mg/dL Total Bilirubin (0.2-1.0) mg/dL AST (15-37) U/L ALT (12-78) U/L Alkaline Phosphatase (45-117) U/L Ammonia (11-32) mcmol/L Troponin I (0.02-0.05) ng/mL Total Protein (6.4-8.2) g/dL Albumin (3.4-5.0) g/dL Carcinoembryonic Ag (0.2-5.0) ng/mL TSH (0.358-3.740) uIU/mL Urine Color Yellow (Yellw/Straw) Urine Clarity Hazy H (Clear) Urine pH 5.0 (5.0-8.5) Ur Specific [place] 1.016 (1.002-1.035) Urine Protein 30 H (Neg-Trace) mg/dL Urine Glucose (UA) 500 or greater (Negative) mg/dL Urine Ketones Negative (Negative) mg/dL Urine Occult Blood Moderate H (Negative) Urine Nitrate Negative (Negative) Urine Bilirubin Negative (Negative) Urine Urobilinogen Less than 2 (Less than 2) mg/dL Ur Leukocyte Esterase Negative (Negative) Urine RBC 16 H (0-3) /hpf Urine WBC 2 (0-5) /hpf Amorphous Sediment Rare H (None) /hpf Urine Bacteria Rare H (None) /hpf Hyaline Casts 15 (0-3) /lpf Urine Mucus Few H (Occasional) /lpf Micro UA Comment Culture not ind Ur Microscopic Review Not Reportable Urine Culture Comments Culture not ind Urine Eosinophils None seen (None Seen) /HPF Ur Random Creatinine (27-300) mg/dL Ur Random Sodium 16 meq/L IgG (660-1640) mg/dL IgA (93-514) mg/dL IgM (40-247) mg/dL [place]/Lambda Ratio (1.57-3.93) GRETA Interpretation KINJAL Screen (Neg) Complement C3 (90-180) mg/dL Complement C4 (10-40) mg/dL [place] Light Chain Anal (170-370) mg/dL [place] Light Chain Anal (90-210) mg/dL Hepatitis A IgM Ab (Nonreactive) Hep Bs Antigen (Nonreactive) Hep B Core IgM Ab (Nonreactive) Hep C IgG Ab (Nonreactive) 03/01/18 03/01/18 03/01/18 Range/Units 04:14 04:14 04:14 WBC 6.7 (4.0-11.0) th/mm3 RBC 3.23 L (4.50-5.90) mil/mm3 Hgb 11.4 L (13.0-17.0) gm/dL Hct 33.0 L (39.0-51.0) % MCV 102.3 H (80.0-100.0) fL MCH 35.2 H (27.0-34.0) pg MCHC 34.4 (32.0-36.0) % RDW 21.3 H (11.6-17.2) % Plt Count 76 L (150-450) th/mm3 MPV 7.2 (7.0-11.0) fL Prelim Diff (Auto) Slide review pending Neut % (Auto) 83.9 H (16.0-70.0) % Lymph % (Auto) 4.0 L (9.0-44.0) % [place] % (Auto) 10.5 H (0.0-8.0) % Eos % (Auto) 1.3 (0.0-4.0) % Baso % (Auto) 0.3 (0.0-2.0) % Neut # (Auto) 5.6 (1.8-7.7) th/mm3 Lymph # (Auto) 0.3 L (1.0-4.8) th/mm3 [place] # (Auto) 0.7 (0.0-0.9) th/mm3 Eos # (Auto) 0.1 (0.0-0.4) th/mm3 Baso # (Auto) 0.0 (0.0-0.2) th/mm3 WBC Differential . Diff Scan Auto diff confirmed Seg Neuts % (Manual) (16-70) % Band Neuts % (Manual) (0-6) % Lymphocytes % (Manual) (9-44) % Monocytes % (Manual) (0-8) % Eosinophils % (Manual) (0-4) % Abs Neuts (Manual) (1.8-7.7) th/mm3 Differential Comment . Platelet Estimate Low L (Normal) Platelet Morphology Normal (Normal) PT (9.8-11.6) sec INR Ratio APTT 57.3 H (24.3-30.1) sec Puncture Site Patient Temperature VBG pH (7.360-7.400) VBG pCO2 (44-48) mmHG VBG pO2 (35-40) mmHG VBG HCO3 (22-26) mmol/L VBG O2 Saturation (70-76) % VBG O2 Content (9.0-17.0) Vol % VBG Base Excess (-2-2) mmol/L VBG Carboxyhemoglobin (0-4) % VBG Methemoglobin (0-2) % Hemoglobin (12.0-16.0) G/DL O2 Delivery Device Inspired O2 % Critical Value Sodium 134 L (136-145) meq/L Potassium 4.3 (3.5-5.1) meq/L Chloride 96 L (98-107) meq/L Carbon Dioxide 20.1 L (21.0-32.0) meq/L Anion Gap 18 H (5-15) meq/L BUN 81 H (7-18) mg/dL Creatinine 7.12 H (0.60-1.30) mg/dL Estimated GFR 8 L (>89) mL/min POC Glucose (68-110) mg/dl Random Glucose 149 H (74-106) mg/dL Lactic Acid (0.4-2.0) mmol/L Uric Acid (2.6-7.2) mg/dl Calcium 7.9 L (8.5-10.1) mg/dL Phosphorus (2.5-4.9) mg/dL Total Bilirubin (0.2-1.0) mg/dL AST (15-37) U/L ALT (12-78) U/L Alkaline Phosphatase (45-117) U/L Ammonia (11-32) mcmol/L Troponin I (0.02-0.05) ng/mL Total Protein (6.4-8.2) g/dL Albumin (3.4-5.0) g/dL Carcinoembryonic Ag (0.2-5.0) ng/mL TSH (0.358-3.740) uIU/mL Urine Color (Yellw/Straw) Urine Clarity (Clear) Urine pH (5.0-8.5) Ur Specific [place] (1.002-1.035) Urine Protein (Neg-Trace) mg/dL Urine Glucose (UA) (Negative) mg/dL Urine Ketones (Negative) mg/dL Urine Occult Blood (Negative) Urine Nitrate (Negative) Urine Bilirubin (Negative) Urine Urobilinogen (Less than 2) mg/dL Ur Leukocyte Esterase (Negative) Urine RBC (0-3) /hpf Urine WBC (0-5) /hpf Amorphous Sediment (None) /hpf Urine Bacteria (None) /hpf Hyaline Casts (0-3) /lpf Urine Mucus (Occasional) /lpf Micro UA Comment Ur Microscopic Review Urine Culture Comments Urine Eosinophils (None Seen) /HPF Ur Random Creatinine (27-300) mg/dL Ur Random Sodium meq/L IgG (660-1640) mg/dL IgA (93-514) mg/dL IgM (40-247) mg/dL [place]/Lambda Ratio (1.57-3.93) GRETA Interpretation KINJAL Screen (Neg) Complement C3 (90-180) mg/dL Complement C4 31 (10-40) mg/dL [place] Light Chain Anal (170-370) mg/dL [place] Light Chain Anal (90-210) mg/dL Hepatitis A IgM Ab (Nonreactive) Hep Bs Antigen (Nonreactive) Hep B Core IgM Ab (Nonreactive) Hep C IgG Ab (Nonreactive) 03/01/18 03/01/18 03/01/18 Range/Units 08:05 11:52 13:53 WBC (4.0-11.0) th/mm3 RBC (4.50-5.90) mil/mm3 Hgb (13.0-17.0) gm/dL Hct (39.0-51.0) % MCV (80.0-100.0) fL MCH (27.0-34.0) pg MCHC (32.0-36.0) % RDW (11.6-17.2) % Plt Count (150-450) th/mm3 MPV (7.0-11.0) fL Prelim Diff (Auto) Neut % (Auto) (16.0-70.0) % Lymph % (Auto) (9.0-44.0) % [place] % (Auto) (0.0-8.0) % Eos % (Auto) (0.0-4.0) % Baso % (Auto) (0.0-2.0) % Neut # (Auto) (1.8-7.7) th/mm3 Lymph # (Auto) (1.0-4.8) th/mm3 [place] # (Auto) (0.0-0.9) th/mm3 Eos # (Auto) (0.0-0.4) th/mm3 Baso # (Auto) (0.0-0.2) th/mm3 WBC Differential Diff Scan Seg Neuts % (Manual) (16-70) % Band Neuts % (Manual) (0-6) % Lymphocytes % (Manual) (9-44) % Monocytes % (Manual) (0-8) % Eosinophils % (Manual) (0-4) % Abs Neuts (Manual) (1.8-7.7) th/mm3 Differential Comment Platelet Estimate (Normal) Platelet Morphology (Normal) PT (9.8-11.6) sec INR Ratio APTT (24.3-30.1) sec Puncture Site Patient Temperature VBG pH (7.360-7.400) VBG pCO2 (44-48) mmHG VBG pO2 (35-40) mmHG VBG HCO3 (22-26) mmol/L VBG O2 Saturation (70-76) % VBG O2 Content (9.0-17.0) Vol % VBG Base Excess (-2-2) mmol/L VBG Carboxyhemoglobin (0-4) % VBG Methemoglobin (0-2) % Hemoglobin (12.0-16.0) G/DL O2 Delivery Device Inspired O2 % Critical Value Sodium (136-145) meq/L Potassium (3.5-5.1) meq/L Chloride (98-107) meq/L Carbon Dioxide (21.0-32.0) meq/L Anion Gap (5-15) meq/L BUN (7-18) mg/dL Creatinine (0.60-1.30) mg/dL Estimated GFR (>89) mL/min POC Glucose 185 H 172 H (68-110) mg/dl Random Glucose (74-106) mg/dL Lactic Acid (0.4-2.0) mmol/L Uric Acid (2.6-7.2) mg/dl Calcium (8.5-10.1) mg/dL Phosphorus (2.5-4.9) mg/dL Total Bilirubin (0.2-1.0) mg/dL AST (15-37) U/L ALT (12-78) U/L Alkaline Phosphatase (45-117) U/L Ammonia (11-32) mcmol/L Troponin I (0.02-0.05) ng/mL Total Protein (6.4-8.2) g/dL Albumin (3.4-5.0) g/dL Carcinoembryonic Ag (0.2-5.0) ng/mL TSH (0.358-3.740) uIU/mL Urine Color (Yellw/Straw) Urine Clarity (Clear) Urine pH (5.0-8.5) Ur Specific [place] (1.002-1.035) Urine Protein (Neg-Trace) mg/dL Urine Glucose (UA) (Negative) mg/dL Urine Ketones (Negative) mg/dL Urine Occult Blood (Negative) Urine Nitrate (Negative) Urine Bilirubin (Negative) Urine Urobilinogen (Less than 2) mg/dL Ur Leukocyte Esterase (Negative) Urine RBC (0-3) /hpf Urine WBC (0-5) /hpf Amorphous Sediment (None) /hpf Urine Bacteria (None) /hpf Hyaline Casts (0-3) /lpf Urine Mucus (Occasional) /lpf Micro UA Comment Ur Microscopic Review Urine Culture Comments Urine Eosinophils (None Seen) /HPF Ur Random Creatinine (27-300) mg/dL Ur Random Sodium meq/L IgG (660-1640) mg/dL IgA (93-514) mg/dL IgM (40-247) mg/dL [place]/Lambda Ratio (1.57-3.93) GRETA Interpretation KINJAL Screen (Neg) Complement C3 (90-180) mg/dL Complement C4 (10-40) mg/dL [place] Light Chain Anal (170-370) mg/dL Lambda Light Chain Anal (90-210) mg/dL Hepatitis A IgM Ab Nonreactive (Nonreactive) Hep Bs Antigen Nonreactive (Nonreactive) Hep B Core IgM Ab Nonreactive (Nonreactive) Hep C IgG Ab Nonreactive (Nonreactive) 03/01/18 03/01/18 03/02/18 Range/Units 16:35 20:52 02:55 WBC (4.0-11.0) th/mm3 RBC (4.50-5.90) mil/mm3 Hgb (13.0-17.0) gm/dL Hct (39.0-51.0) % MCV (80.0-100.0) fL MCH (27.0-34.0) pg MCHC (32.0-36.0) % RDW (11.6-17.2) % Plt Count (150-450) th/mm3 MPV (7.0-11.0) fL Prelim Diff (Auto) Neut % (Auto) (16.0-70.0) % Lymph % (Auto) (9.0-44.0) % [place] % (Auto) (0.0-8.0) % Eos % (Auto) (0.0-4.0) % Baso % (Auto) (0.0-2.0) % Neut # (Auto) (1.8-7.7) th/mm3 Lymph # (Auto) (1.0-4.8) th/mm3 [place] # (Auto) (0.0-0.9) th/mm3 Eos # (Auto) (0.0-0.4) th/mm3 Baso # (Auto) (0.0-0.2) th/mm3 WBC Differential Diff Scan Seg Neuts % (Manual) (16-70) % Band Neuts % (Manual) (0-6) % Lymphocytes % (Manual) (9-44) % Monocytes % (Manual) (0-8) % Eosinophils % (Manual) (0-4) % Abs Neuts (Manual) (1.8-7.7) th/mm3 Differential Comment Platelet Estimate (Normal) Platelet Morphology (Normal) PT (9.8-11.6) sec INR Ratio APTT 49.2 H (24.3-30.1) sec Puncture Site Patient Temperature VBG pH (7.360-7.400) VBG pCO2 (44-48) mmHG VBG pO2 (35-40) mmHG VBG HCO3 (22-26) mmol/L VBG O2 Saturation (70-76) % VBG O2 Content (9.0-17.0) Vol % VBG Base Excess (-2-2) mmol/L VBG Carboxyhemoglobin (0-4) % VBG Methemoglobin (0-2) % Hemoglobin (12.0-16.0) G/DL O2 Delivery Device Inspired O2 % Critical Value Sodium (136-145) meq/L Potassium (3.5-5.1) meq/L Chloride (98-107) meq/L Carbon Dioxide (21.0-32.0) meq/L Anion Gap (5-15) meq/L BUN (7-18) mg/dL Creatinine (0.60-1.30) mg/dL Estimated GFR (>89) mL/min POC Glucose 184 H 170 H (68-110) mg/dl Random Glucose (74-106) mg/dL Lactic Acid (0.4-2.0) mmol/L Uric Acid (2.6-7.2) mg/dl Calcium (8.5-10.1) mg/dL Phosphorus (2.5-4.9) mg/dL Total Bilirubin (0.2-1.0) mg/dL AST (15-37) U/L ALT (12-78) U/L Alkaline Phosphatase (45-117) U/L Ammonia (11-32) mcmol/L Troponin I (0.02-0.05) ng/mL Total Protein (6.4-8.2) g/dL Albumin (3.4-5.0) g/dL Carcinoembryonic Ag (0.2-5.0) ng/mL TSH (0.358-3.740) uIU/mL Urine Color (Yellw/Straw) Urine Clarity (Clear) Urine pH (5.0-8.5) Ur Specific [place] (1.002-1.035) Urine Protein (Neg-Trace) mg/dL Urine Glucose (UA) (Negative) mg/dL Urine Ketones (Negative) mg/dL Urine Occult Blood (Negative) Urine Nitrate (Negative) Urine Bilirubin (Negative) Urine Urobilinogen (Less than 2) mg/dL Ur Leukocyte Esterase (Negative) Urine RBC (0-3) /hpf Urine WBC (0-5) /hpf Amorphous Sediment (None) /hpf Urine Bacteria (None) /hpf Hyaline Casts (0-3) /lpf Urine Mucus (Occasional) /lpf Micro UA Comment Ur Microscopic Review Urine Culture Comments Urine Eosinophils (None Seen) /HPF Ur Random Creatinine (27-300) mg/dL Ur Random Sodium meq/L IgG (660-1640) mg/dL IgA (93-514) mg/dL IgM (40-247) mg/dL [place]/Lambda Ratio (1.57-3.93) GRETA Interpretation KINJAL Screen (Neg) Complement C3 (90-180) mg/dL Complement C4 (10-40) mg/dL [place] Light Chain Anal (170-370) mg/dL [place] Light Chain Anal (90-210) mg/dL Hepatitis A IgM Ab (Nonreactive) Hep Bs Antigen (Nonreactive) Hep B Core IgM Ab (Nonreactive) Hep C IgG Ab (Nonreactive) 03/02/18 03/02/18 03/02/18 Range/Units 05:00 05:00 07:27 WBC 7.9 (4.0-11.0) th/mm3 RBC 3.03 L (4.50-5.90) mil/mm3 Hgb 10.8 L (13.0-17.0) gm/dL Hct 30.5 L (39.0-51.0) % MCV 100.5 H (80.0-100.0) fL MCH 35.8 H (27.0-34.0) pg MCHC 35.6 (32.0-36.0) % RDW 20.9 H (11.6-17.2) % Plt Count 105 L D (150-450) th/mm3 MPV 7.0 (7.0-11.0) fL Prelim Diff (Auto) Neut % (Auto) (16.0-70.0) % Lymph % (Auto) (9.0-44.0) % [place] % (Auto) (0.0-8.0) % Eos % (Auto) (0.0-4.0) % Baso % (Auto) (0.0-2.0) % Neut # (Auto) (1.8-7.7) th/mm3 Lymph # (Auto) (1.0-4.8) th/mm3 [place] # (Auto) (0.0-0.9) th/mm3 Eos # (Auto) (0.0-0.4) th/mm3 Baso # (Auto) (0.0-0.2) th/mm3 WBC Differential Diff Scan Seg Neuts % (Manual) (16-70) % Band Neuts % (Manual) (0-6) % Lymphocytes % (Manual) (9-44) % Monocytes % (Manual) (0-8) % Eosinophils % (Manual) (0-4) % Abs Neuts (Manual) (1.8-7.7) th/mm3 Differential Comment Platelet Estimate (Normal) Platelet Morphology (Normal) PT (9.8-11.6) sec INR Ratio APTT (24.3-30.1) sec Puncture Site Patient Temperature VBG pH (7.360-7.400) VBG pCO2 (44-48) mmHG VBG pO2 (35-40) mmHG VBG HCO3 (22-26) mmol/L VBG O2 Saturation (70-76) % VBG O2 Content (9.0-17.0) Vol % VBG Base Excess (-2-2) mmol/L VBG Carboxyhemoglobin (0-4) % VBG Methemoglobin (0-2) % Hemoglobin (12.0-16.0) G/DL O2 Delivery Device Inspired O2 % Critical Value Sodium 130 L (136-145) meq/L Potassium 4.1 (3.5-5.1) meq/L Chloride 96 L (98-107) meq/L Carbon Dioxide 19.1 L (21.0-32.0) meq/L Anion Gap 15 (5-15) meq/L BUN 67 H (7-18) mg/dL Creatinine 6.08 H (0.60-1.30) mg/dL Estimated GFR 10 L (>89) mL/min POC Glucose 170 H (68-110) mg/dl Random Glucose 139 H (74-106) mg/dL Lactic Acid (0.4-2.0) mmol/L Uric Acid (2.6-7.2) mg/dl Calcium 7.9 L (8.5-10.1) mg/dL Phosphorus (2.5-4.9) mg/dL Total Bilirubin (0.2-1.0) mg/dL AST (15-37) U/L ALT (12-78) U/L Alkaline Phosphatase (45-117) U/L Ammonia (11-32) mcmol/L Troponin I (0.02-0.05) ng/mL Total Protein (6.4-8.2) g/dL Albumin (3.4-5.0) g/dL Carcinoembryonic Ag (0.2-5.0) ng/mL TSH (0.358-3.740) uIU/mL Urine Color ([place]w/Straw) Urine Clarity (Clear) Urine pH (5.0-8.5) Ur Specific [place] (1.002-1.035) Urine Protein (Neg-Trace) mg/dL Urine Glucose (UA) (Negative) mg/dL Urine Ketones (Negative) mg/dL Urine Occult Blood (Negative) Urine Nitrate (Negative) Urine Bilirubin (Negative) Urine Urobilinogen (Less than 2) mg/dL Ur Leukocyte Esterase (Negative) Urine RBC (0-3) /hpf Urine WBC (0-5) /hpf Amorphous Sediment (None) /hpf Urine Bacteria (None) /hpf Hyaline Casts (0-3) /lpf Urine Mucus (Occasional) /lpf Micro UA Comment Ur Microscopic Review Urine Culture Comments Urine Eosinophils (None Seen) /HPF Ur Random Creatinine (27-300) mg/dL Ur Random Sodium meq/L IgG (660-1640) mg/dL IgA (93-514) mg/dL IgM (40-247) mg/dL [place]/Lambda Ratio (1.57-3.93) GRETA Interpretation KINJAL Screen (Neg) Complement C3 (90-180) mg/dL Complement C4 (10-40) mg/dL [place] Light Chain Anal (170-370) mg/dL [place] Light Chain Anal (90-210) mg/dL Hepatitis A IgM Ab (Nonreactive) Hep Bs Antigen (Nonreactive) Hep B Core IgM Ab (Nonreactive) Hep C IgG Ab (Nonreactive) 03/02/18 03/02/18 03/02/18 Range/Units 09:36 11:57 16:41 WBC (4.0-11.0) th/mm3 RBC (4.50-5.90) mil/mm3 Hgb (13.0-17.0) gm/dL Hct (39.0-51.0) % MCV (80.0-100.0) fL MCH (27.0-34.0) pg MCHC (32.0-36.0) % RDW (11.6-17.2) % Plt Count (150-450) th/mm3 MPV (7.0-11.0) fL Prelim Diff (Auto) Neut % (Auto) (16.0-70.0) % Lymph % (Auto) (9.0-44.0) % [place] % (Auto) (0.0-8.0) % Eos % (Auto) (0.0-4.0) % Baso % (Auto) (0.0-2.0) % Neut # (Auto) (1.8-7.7) th/mm3 Lymph # (Auto) (1.0-4.8) th/mm3 [place] # (Auto) (0.0-0.9) th/mm3 Eos # (Auto) (0.0-0.4) th/mm3 Baso # (Auto) (0.0-0.2) th/mm3 WBC Differential Diff Scan Seg Neuts % (Manual) (16-70) % Band Neuts % (Manual) (0-6) % Lymphocytes % (Manual) (9-44) % Monocytes % (Manual) (0-8) % Eosinophils % (Manual) (0-4) % Abs Neuts (Manual) (1.8-7.7) th/mm3 Differential Comment Platelet Estimate (Normal) Platelet Morphology (Normal) PT (9.8-11.6) sec INR Ratio APTT 45.7 H (24.3-30.1) sec Puncture Site Patient Temperature VBG pH (7.360-7.400) VBG pCO2 (44-48) mmHG VBG pO2 (35-40) mmHG VBG HCO3 (22-26) mmol/L VBG O2 Saturation (70-76) % VBG O2 Content (9.0-17.0) Vol % VBG Base Excess (-2-2) mmol/L VBG Carboxyhemoglobin (0-4) % VBG Methemoglobin (0-2) % Hemoglobin (12.0-16.0) G/DL O2 Delivery Device Inspired O2 % Critical Value Sodium (136-145) meq/L Potassium (3.5-5.1) meq/L Chloride (98-107) meq/L Carbon Dioxide (21.0-32.0) meq/L Anion Gap (5-15) meq/L BUN (7-18) mg/dL Creatinine (0.60-1.30) mg/dL Estimated GFR (>89) mL/min POC Glucose 188 H 193 H (68-110) mg/dl Random Glucose (74-106) mg/dL Lactic Acid (0.4-2.0) mmol/L Uric Acid (2.6-7.2) mg/dl Calcium (8.5-10.1) mg/dL Phosphorus (2.5-4.9) mg/dL Total Bilirubin (0.2-1.0) mg/dL AST (15-37) U/L ALT (12-78) U/L Alkaline Phosphatase (45-117) U/L Ammonia (11-32) mcmol/L Troponin I (0.02-0.05) ng/mL Total Protein (6.4-8.2) g/dL Albumin (3.4-5.0) g/dL Carcinoembryonic Ag (0.2-5.0) ng/mL TSH (0.358-3.740) uIU/mL Urine Color ([place]/Straw) Urine Clarity (Clear) Urine pH (5.0-8.5) Ur Specific [place] (1.002-1.035) Urine Protein (Neg-Trace) mg/dL Urine Glucose (UA) (Negative) mg/dL Urine Ketones (Negative) mg/dL Urine Occult Blood (Negative) Urine Nitrate (Negative) Urine Bilirubin (Negative) Urine Urobilinogen (Less than 2) mg/dL Ur Leukocyte Esterase (Negative) Urine RBC (0-3) /hpf Urine WBC (0-5) /hpf Amorphous Sediment (None) /hpf Urine Bacteria (None) /hpf Hyaline Casts (0-3) /lpf Urine Mucus (Occasional) /lpf Micro UA Comment Ur Microscopic Review Urine Culture Comments Urine Eosinophils (None Seen) /HPF Ur Random Creatinine (27-300) mg/dL Ur Random Sodium meq/L IgG (660-1640) mg/dL IgA (93-514) mg/dL IgM (40-247) mg/dL [place]/Lambda Ratio (1.57-3.93) GRETA Interpretation KINJAL Screen (Neg) Complement C3 (90-180) mg/dL Complement C4 (10-40) mg/dL [place] Light Chain Anal (170-370) mg/dL [place] Light Chain Anal (90-210) mg/dL Hepatitis A IgM Ab (Nonreactive) Hep Bs Antigen (Nonreactive) Hep B Core IgM Ab (Nonreactive) Hep C IgG Ab (Nonreactive) 03/02/18 03/02/18 03/03/18 Range/Units 17:40 21:29 06:00 WBC (4.0-11.0) th/mm3 RBC (4.50-5.90) mil/mm3 Hgb (13.0-17.0) gm/dL Hct (39.0-51.0) % MCV (80.0-100.0) fL MCH (27.0-34.0) pg MCHC (32.0-36.0) % RDW (11.6-17.2) % Plt Count (150-450) th/mm3 MPV (7.0-11.0) fL Prelim Diff (Auto) Neut % (Auto) (16.0-70.0) % Lymph % (Auto) (9.0-44.0) % [place] % (Auto) (0.0-8.0) % Eos % (Auto) (0.0-4.0) % Baso % (Auto) (0.0-2.0) % Neut # (Auto) (1.8-7.7) th/mm3 Lymph # (Auto) (1.0-4.8) th/mm3 [place] # (Auto) (0.0-0.9) th/mm3 Eos # (Auto) (0.0-0.4) th/mm3 Baso # (Auto) (0.0-0.2) th/mm3 WBC Differential Diff Scan Seg Neuts % (Manual) (16-70) % Band Neuts % (Manual) (0-6) % Lymphocytes % (Manual) (9-44) % Monocytes % (Manual) (0-8) % Eosinophils % (Manual) (0-4) % Abs Neuts (Manual) (1.8-7.7) th/mm3 Differential Comment Platelet Estimate (Normal) Platelet Morphology (Normal) PT (9.8-11.6) sec INR Ratio APTT 55.5 H D (24.3-30.1) sec Puncture Site Patient Temperature VBG pH (7.360-7.400) VBG pCO2 (44-48) mmHG VBG pO2 (35-40) mmHG VBG HCO3 (22-26) mmol/L VBG O2 Saturation (70-76) % VBG O2 Content (9.0-17.0) Vol % VBG Base Excess (-2-2) mmol/L VBG Carboxyhemoglobin (0-4) % VBG Methemoglobin (0-2) % Hemoglobin (12.0-16.0) G/DL O2 Delivery Device Inspired O2 % Critical Value Sodium (136-145) meq/L Potassium (3.5-5.1) meq/L Chloride (98-107) meq/L Carbon Dioxide (21.0-32.0) meq/L Anion Gap (5-15) meq/L BUN (7-18) mg/dL Creatinine (0.60-1.30) mg/dL Estimated GFR (>89) mL/min POC Glucose 200 H (68-110) mg/dl Random Glucose (74-106) mg/dL Lactic Acid (0.4-2.0) mmol/L Uric Acid (2.6-7.2) mg/dl Calcium (8.5-10.1) mg/dL Phosphorus (2.5-4.9) mg/dL Total Bilirubin (0.2-1.0) mg/dL AST (15-37) U/L ALT (12-78) U/L Alkaline Phosphatase (45-117) U/L Ammonia (11-32) mcmol/L Troponin I (0.02-0.05) ng/mL Total Protein (6.4-8.2) g/dL Albumin (3.4-5.0) g/dL Carcinoembryonic Ag (0.2-5.0) ng/mL TSH (0.358-3.740) uIU/mL Urine Color ([place]/Straw) Urine Clarity (Clear) Urine pH (5.0-8.5) Ur Specific [place] (1.002-1.035) Urine Protein (Neg-Trace) mg/dL Urine Glucose (UA) (Negative) mg/dL Urine Ketones (Negative) mg/dL Urine Occult Blood (Negative) Urine Nitrate (Negative) Urine Bilirubin (Negative) Urine Urobilinogen (Less than 2) mg/dL Ur Leukocyte Esterase (Negative) Urine RBC (0-3) /hpf Urine WBC (0-5) /hpf Amorphous Sediment (None) /hpf Urine Bacteria (None) /hpf Hyaline Casts (0-3) /lpf Urine Mucus (Occasional) /lpf Micro UA Comment Ur Microscopic Review Urine Culture Comments Urine Eosinophils (None Seen) /HPF Ur Random Creatinine 51 (27-300) mg/dL Ur Random Sodium 27 meq/L IgG (660-1640) mg/dL IgA (93-514) mg/dL IgM (40-247) mg/dL [place]/Lambda Ratio (1.57-3.93) GRETA Interpretation KINJAL Screen (Neg) Complement C3 (90-180) mg/dL Complement C4 (10-40) mg/dL [place] Light Chain Anal (170-370) mg/dL [place] Light Chain Anal (90-210) mg/dL Hepatitis A IgM Ab (Nonreactive) Hep Bs Antigen (Nonreactive) Hep B Core IgM Ab (Nonreactive) Hep C IgG Ab (Nonreactive) 03/03/18 03/03/18 03/03/18 Range/Units 06:00 06:00 08:17 WBC 7.1 (4.0-11.0) th/mm3 RBC 2.72 L (4.50-5.90) mil/mm3 Hgb 9.9 L (13.0-17.0) gm/dL Hct 27.4 L (39.0-51.0) % MCV 100.8 H (80.0-100.0) fL MCH 36.3 H (27.0-34.0) pg MCHC 36.0 (32.0-36.0) % RDW 20.7 H (11.6-17.2) % Plt Count 112 L (150-450) th/mm3 MPV 7.0 (7.0-11.0) fL Prelim Diff (Auto) Slide review pending Neut % (Auto) 83.7 H (16.0-70.0) % Lymph % (Auto) 3.2 L (9.0-44.0) % [place] % (Auto) 9.9 H (0.0-8.0) % Eos % (Auto) 2.7 (0.0-4.0) % Baso % (Auto) 0.5 (0.0-2.0) % Neut # (Auto) 5.9 (1.8-7.7) th/mm3 Lymph # (Auto) 0.2 L (1.0-4.8) th/mm3 [place] # (Auto) 0.7 (0.0-0.9) th/mm3 Eos # (Auto) 0.2 (0.0-0.4) th/mm3 Baso # (Auto) 0.0 (0.0-0.2) th/mm3 WBC Differential . Diff Scan Auto diff confirmed Seg Neuts % (Manual) (16-70) % Band Neuts % (Manual) (0-6) % Lymphocytes % (Manual) (9-44) % Monocytes % (Manual) (0-8) % Eosinophils % (Manual) (0-4) % Abs Neuts (Manual) (1.8-7.7) th/mm3 Differential Comment . Platelet Estimate (Normal) Platelet Morphology (Normal) PT (9.8-11.6) sec INR Ratio APTT (24.3-30.1) sec Puncture Site Patient Temperature VBG pH (7.360-7.400) VBG pCO2 (44-48) mmHG VBG pO2 (35-40) mmHG VBG HCO3 (22-26) mmol/L VBG O2 Saturation (70-76) % VBG O2 Content (9.0-17.0) Vol % VBG Base Excess (-2-2) mmol/L VBG Carboxyhemoglobin (0-4) % VBG Methemoglobin (0-2) % Hemoglobin (12.0-16.0) G/DL O2 Delivery Device Inspired O2 % Critical Value Sodium 131 L (136-145) meq/L Potassium 4.2 (3.5-5.1) meq/L Chloride 98 (98-107) meq/L Carbon Dioxide 22.3 (21.0-32.0) meq/L Anion Gap 11 (5-15) meq/L BUN 70 H (7-18) mg/dL Creatinine 4.63 H (0.60-1.30) mg/dL Estimated GFR 13 L (>89) mL/min POC Glucose 166 H (68-110) mg/dl Random Glucose 129 H (74-106) mg/dL Lactic Acid (0.4-2.0) mmol/L Uric Acid 7.2 (2.6-7.2) mg/dl Calcium 7.9 L (8.5-10.1) mg/dL Phosphorus 5.6 H (2.5-4.9) mg/dL Total Bilirubin (0.2-1.0) mg/dL AST (15-37) U/L ALT (12-78) U/L Alkaline Phosphatase (45-117) U/L Ammonia (11-32) mcmol/L Troponin I (0.02-0.05) ng/mL Total Protein (6.4-8.2) g/dL Albumin (3.4-5.0) g/dL Carcinoembryonic Ag (0.2-5.0) ng/mL TSH (0.358-3.740) uIU/mL Urine Color (Yellw/Straw) Urine Clarity (Clear) Urine pH (5.0-8.5) Ur Specific [place] (1.002-1.035) Urine Protein (Neg-Trace) mg/dL Urine Glucose (UA) (Negative) mg/dL Urine Ketones (Negative) mg/dL Urine Occult Blood (Negative) Urine Nitrate (Negative) Urine Bilirubin (Negative) Urine Urobilinogen (Less than 2) mg/dL Ur Leukocyte Esterase (Negative) Urine RBC (0-3) /hpf Urine WBC (0-5) /hpf Amorphous Sediment (None) /hpf Urine Bacteria (None) /hpf Hyaline Casts (0-3) /lpf Urine Mucus (Occasional) /lpf Micro UA Comment Ur Microscopic Review Urine Culture Comments Urine Eosinophils (None Seen) /HPF Ur Random Creatinine (27-300) mg/dL Ur Random Sodium meq/L IgG (660-1640) mg/dL IgA (93-514) mg/dL IgM (40-247) mg/dL [place]/Lambda Ratio (1.57-3.93) GRETA Interpretation KINJAL Screen (Neg) Complement C3 (90-180) mg/dL Complement C4 (10-40) mg/dL [place] Light Chain Anal (170-370) mg/dL [place] Light Chain Anal (90-210) mg/dL Hepatitis A IgM Ab (Nonreactive) Hep Bs Antigen (Nonreactive) Hep B Core IgM Ab (Nonreactive) Hep C IgG Ab (Nonreactive) 03/03/18 03/03/18 03/04/18 Range/Units 17:31 21:46 08:09 WBC 5.0 (4.0-11.0) th/mm3 RBC 3.01 L (4.50-5.90) mil/mm3 Hgb 10.7 L (13.0-17.0) gm/dL Hct 31.1 L (39.0-51.0) % MCV 103.3 H (80.0-100.0) fL MCH 35.6 H (27.0-34.0) pg MCHC 34.5 (32.0-36.0) % RDW 21.1 H (11.6-17.2) % Plt Count 142 L (150-450) th/mm3 MPV 6.8 L (7.0-11.0) fL Prelim Diff (Auto) Neut % (Auto) 75.6 H (16.0-70.0) % Lymph % (Auto) 5.5 L (9.0-44.0) % [place] % (Auto) 13.5 H (0.0-8.0) % Eos % (Auto) 4.7 H (0.0-4.0) % Baso % (Auto) 0.7 (0.0-2.0) % Neut # (Auto) 3.8 (1.8-7.7) th/mm3 Lymph # (Auto) 0.3 L (1.0-4.8) th/mm3 [place] # (Auto) 0.7 (0.0-0.9) th/mm3 Eos # (Auto) 0.2 (0.0-0.4) th/mm3 Baso # (Auto) 0.0 (0.0-0.2) th/mm3 WBC Differential . Diff Scan Seg Neuts % (Manual) (16-70) % Band Neuts % (Manual) (0-6) % Lymphocytes % (Manual) (9-44) % Monocytes % (Manual) (0-8) % Eosinophils % (Manual) (0-4) % Abs Neuts (Manual) (1.8-7.7) th/mm3 Differential Comment Auto diff final Platelet Estimate (Normal) Platelet Morphology (Normal) PT (9.8-11.6) sec INR Ratio APTT (24.3-30.1) sec Puncture Site Patient Temperature VBG pH (7.360-7.400) VBG pCO2 (44-48) mmHG VBG pO2 (35-40) mmHG VBG HCO3 (22-26) mmol/L VBG O2 Saturation (70-76) % VBG O2 Content (9.0-17.0) Vol % VBG Base Excess (-2-2) mmol/L VBG Carboxyhemoglobin (0-4) % VBG Methemoglobin (0-2) % Hemoglobin (12.0-16.0) G/DL O2 Delivery Device Inspired O2 % Critical Value Sodium (136-145) meq/L Potassium (3.5-5.1) meq/L Chloride (98-107) meq/L Carbon Dioxide (21.0-32.0) meq/L Anion Gap (5-15) meq/L BUN (7-18) mg/dL Creatinine (0.60-1.30) mg/dL Estimated GFR (>89) mL/min POC Glucose 266 H 205 H (68-110) mg/dl Random Glucose (74-106) mg/dL Lactic Acid (0.4-2.0) mmol/L Uric Acid (2.6-7.2) mg/dl Calcium (8.5-10.1) mg/dL Phosphorus (2.5-4.9) mg/dL Total Bilirubin (0.2-1.0) mg/dL AST (15-37) U/L ALT (12-78) U/L Alkaline Phosphatase (45-117) U/L Ammonia (11-32) mcmol/L Troponin I (0.02-0.05) ng/mL Total Protein (6.4-8.2) g/dL Albumin (3.4-5.0) g/dL Carcinoembryonic Ag (0.2-5.0) ng/mL TSH (0.358-3.740) uIU/mL Urine Color (Yellw/Straw) Urine Clarity (Clear) Urine pH (5.0-8.5) Ur Specific [place] (1.002-1.035) Urine Protein (Neg-Trace) mg/dL Urine Glucose (UA) (Negative) mg/dL Urine Ketones (Negative) mg/dL Urine Occult Blood (Negative) Urine Nitrate (Negative) Urine Bilirubin (Negative) Urine Urobilinogen (Less than 2) mg/dL Ur Leukocyte Esterase (Negative) Urine RBC (0-3) /hpf Urine WBC (0-5) /hpf Amorphous Sediment (None) /hpf Urine Bacteria (None) /hpf Hyaline Casts (0-3) /lpf Urine Mucus (Occasional) /lpf Micro UA Comment Ur Microscopic Review Urine Culture Comments Urine Eosinophils (None Seen) /HPF Ur Random Creatinine (27-300) mg/dL Ur Random Sodium meq/L IgG (660-1640) mg/dL IgA (93-514) mg/dL IgM (40-247) mg/dL [place]/Lambda Ratio (1.57-3.93) GRETA Interpretation KINJAL Screen (Neg) Complement C3 (90-180) mg/dL Complement C4 (10-40) mg/dL [place] Light Chain Anal (170-370) mg/dL Lambda Light Chain Anal (90-210) mg/dL Hepatitis A IgM Ab (Nonreactive) Hep Bs Antigen (Nonreactive) Hep B Core IgM Ab (Nonreactive) Hep C IgG Ab (Nonreactive) 03/04/18 03/04/18 03/04/18 Range/Units 08:09 08:09 08:21 WBC (4.0-11.0) th/mm3 RBC (4.50-5.90) mil/mm3 Hgb (13.0-17.0) gm/dL Hct (39.0-51.0) % MCV (80.0-100.0) fL MCH (27.0-34.0) pg MCHC (32.0-36.0) % RDW (11.6-17.2) % Plt Count (150-450) th/mm3 MPV (7.0-11.0) fL Prelim Diff (Auto) Neut % (Auto) (16.0-70.0) % Lymph % (Auto) (9.0-44.0) % [place] % (Auto) (0.0-8.0) % Eos % (Auto) (0.0-4.0) % Baso % (Auto) (0.0-2.0) % Neut # (Auto) (1.8-7.7) th/mm3 Lymph # (Auto) (1.0-4.8) th/mm3 [place] # (Auto) (0.0-0.9) th/mm3 Eos # (Auto) (0.0-0.4) th/mm3 Baso # (Auto) (0.0-0.2) th/mm3 WBC Differential Diff Scan Seg Neuts % (Manual) (16-70) % Band Neuts % (Manual) (0-6) % Lymphocytes % (Manual) (9-44) % Monocytes % (Manual) (0-8) % Eosinophils % (Manual) (0-4) % Abs Neuts (Manual) (1.8-7.7) th/mm3 Differential Comment Platelet Estimate (Normal) Platelet Morphology (Normal) PT (9.8-11.6) sec INR Ratio APTT 63.5 H (24.3-30.1) sec Puncture Site Patient Temperature VBG pH (7.360-7.400) VBG pCO2 (44-48) mmHG VBG pO2 (35-40) mmHG VBG HCO3 (22-26) mmol/L VBG O2 Saturation (70-76) % VBG O2 Content (9.0-17.0) Vol % VBG Base Excess (-2-2) mmol/L VBG Carboxyhemoglobin (0-4) % VBG Methemoglobin (0-2) % Hemoglobin (12.0-16.0) G/DL O2 Delivery Device Inspired O2 % Critical Value Sodium 140 (136-145) meq/L Potassium 3.7 (3.5-5.1) meq/L Chloride 103 (98-107) meq/L Carbon Dioxide 24.1 (21.0-32.0) meq/L Anion Gap 13 (5-15) meq/L BUN 39 H (7-18) mg/dL Creatinine 2.17 H (0.60-1.30) mg/dL Estimated GFR 31 L (>89) mL/min POC Glucose 192 H (68-110) mg/dl Random Glucose 158 H (74-106) mg/dL Lactic Acid (0.4-2.0) mmol/L Uric Acid (2.6-7.2) mg/dl Calcium 8.5 (8.5-10.1) mg/dL Phosphorus (2.5-4.9) mg/dL Total Bilirubin (0.2-1.0) mg/dL AST (15-37) U/L ALT (12-78) U/L Alkaline Phosphatase (45-117) U/L Ammonia (11-32) mcmol/L Troponin I (0.02-0.05) ng/mL Total Protein (6.4-8.2) g/dL Albumin (3.4-5.0) g/dL Carcinoembryonic Ag (0.2-5.0) ng/mL TSH (0.358-3.740) uIU/mL Urine Color (Yellw/Straw) Urine Clarity (Clear) Urine pH (5.0-8.5) Ur Specific [place] (1.002-1.035) Urine Protein (Neg-Trace) mg/dL Urine Glucose (UA) (Negative) mg/dL Urine Ketones (Negative) mg/dL Urine Occult Blood (Negative) Urine Nitrate (Negative) Urine Bilirubin (Negative) Urine Urobilinogen (Less than 2) mg/dL Ur Leukocyte Esterase (Negative) Urine RBC (0-3) /hpf Urine WBC (0-5) /hpf Amorphous Sediment (None) /hpf Urine Bacteria (None) /hpf Hyaline Casts (0-3) /lpf Urine Mucus (Occasional) /lpf Micro UA Comment Ur Microscopic Review Urine Culture Comments Urine Eosinophils (None Seen) /HPF Ur Random Creatinine (27-300) mg/dL Ur Random Sodium meq/L IgG (660-1640) mg/dL IgA (93-514) mg/dL IgM (40-247) mg/dL [place]/Lambda Ratio (1.57-3.93) GRETA Interpretation KINJAL Screen (Neg) Complement C3 (90-180) mg/dL Complement C4 (10-40) mg/dL [place] Light Chain Anal (170-370) mg/dL [place] Light Chain Anal (90-210) mg/dL Hepatitis A IgM Ab (Nonreactive) Hep Bs Antigen (Nonreactive) Hep B Core IgM Ab (Nonreactive) Hep C IgG Ab (Nonreactive) 03/04/18 03/04/18 03/05/18 Range/Units 11:36 20:05 04:40 WBC 4.5 (4.0-11.0) th/mm3 RBC 2.81 L (4.50-5.90) mil/mm3 Hgb 10.0 L (13.0-17.0) gm/dL Hct 29.0 L (39.0-51.0) % MCV 103.2 H (80.0-100.0) fL MCH 35.7 H (27.0-34.0) pg MCHC 34.6 (32.0-36.0) % RDW 20.2 H (11.6-17.2) % Plt Count 148 L (150-450) th/mm3 MPV 7.0 (7.0-11.0) fL Prelim Diff (Auto) Neut % (Auto) 70.5 H (16.0-70.0) % Lymph % (Auto) 6.5 L (9.0-44.0) % [place] % (Auto) 15.5 H (0.0-8.0) % Eos % (Auto) 7.0 H (0.0-4.0) % Baso % (Auto) 0.5 (0.0-2.0) % Neut # (Auto) 3.2 (1.8-7.7) th/mm3 Lymph # (Auto) 0.3 L (1.0-4.8) th/mm3 [place] # (Auto) 0.7 (0.0-0.9) th/mm3 Eos # (Auto) 0.3 (0.0-0.4) th/mm3 Baso # (Auto) 0.0 (0.0-0.2) th/mm3 WBC Differential . Diff Scan Seg Neuts % (Manual) (16-70) % Band Neuts % (Manual) (0-6) % Lymphocytes % (Manual) (9-44) % Monocytes % (Manual) (0-8) % Eosinophils % (Manual) (0-4) % Abs Neuts (Manual) (1.8-7.7) th/mm3 Differential Comment Auto diff final Platelet Estimate (Normal) Platelet Morphology (Normal) PT (9.8-11.6) sec INR Ratio APTT (24.3-30.1) sec Puncture Site Patient Temperature VBG pH (7.360-7.400) VBG pCO2 (44-48) mmHG VBG pO2 (35-40) mmHG VBG HCO3 (22-26) mmol/L VBG O2 Saturation (70-76) % VBG O2 Content (9.0-17.0) Vol % VBG Base Excess (-2-2) mmol/L VBG Carboxyhemoglobin (0-4) % VBG Methemoglobin (0-2) % Hemoglobin (12.0-16.0) G/DL O2 Delivery Device Inspired O2 % Critical Value Sodium (136-145) meq/L Potassium (3.5-5.1) meq/L Chloride (98-107) meq/L Carbon Dioxide (21.0-32.0) meq/L Anion Gap (5-15) meq/L BUN (7-18) mg/dL Creatinine (0.60-1.30) mg/dL Estimated GFR (>89) mL/min POC Glucose 194 H 198 H (68-110) mg/dl Random Glucose (74-106) mg/dL Lactic Acid (0.4-2.0) mmol/L Uric Acid (2.6-7.2) mg/dl Calcium (8.5-10.1) mg/dL Phosphorus (2.5-4.9) mg/dL Total Bilirubin (0.2-1.0) mg/dL AST (15-37) U/L ALT (12-78) U/L Alkaline Phosphatase (45-117) U/L Ammonia (11-32) mcmol/L Troponin I (0.02-0.05) ng/mL Total Protein (6.4-8.2) g/dL Albumin (3.4-5.0) g/dL Carcinoembryonic Ag (0.2-5.0) ng/mL TSH (0.358-3.740) uIU/mL Urine Color (Yellw/Straw) Urine Clarity (Clear) Urine pH (5.0-8.5) Ur Specific [place] (1.002-1.035) Urine Protein (Neg-Trace) mg/dL Urine Glucose (UA) (Negative) mg/dL Urine Ketones (Negative) mg/dL Urine Occult Blood (Negative) Urine Nitrate (Negative) Urine Bilirubin (Negative) Urine Urobilinogen (Less than 2) mg/dL Ur Leukocyte Esterase (Negative) Urine RBC (0-3) /hpf Urine WBC (0-5) /hpf Amorphous Sediment (None) /hpf Urine Bacteria (None) /hpf Hyaline Casts (0-3) /lpf Urine Mucus (Occasional) /lpf Micro UA Comment Ur Microscopic Review Urine Culture Comments Urine Eosinophils (None Seen) /HPF Ur Random Creatinine (27-300) mg/dL Ur Random Sodium meq/L IgG (660-1640) mg/dL IgA (93-514) mg/dL IgM (40-247) mg/dL [place]/Lambda Ratio (1.57-3.93) GRETA Interpretation KINJAL Screen (Neg) Complement C3 (90-180) mg/dL Complement C4 (10-40) mg/dL [place] Light Chain Anal (170-370) mg/dL Lambda Light Chain Anal (90-210) mg/dL Hepatitis A IgM Ab (Nonreactive) Hep Bs Antigen (Nonreactive) Hep B Core IgM Ab (Nonreactive) Hep C IgG Ab (Nonreactive) 03/05/18 03/05/18 03/05/18 Range/Units 04:40 07:15 07:29 WBC (4.0-11.0) th/mm3 RBC (4.50-5.90) mil/mm3 Hgb (13.0-17.0) gm/dL Hct (39.0-51.0) % MCV (80.0-100.0) fL MCH (27.0-34.0) pg MCHC (32.0-36.0) % RDW (11.6-17.2) % Plt Count (150-450) th/mm3 MPV (7.0-11.0) fL Prelim Diff (Auto) Neut % (Auto) (16.0-70.0) % Lymph % (Auto) (9.0-44.0) % [place] % (Auto) (0.0-8.0) % Eos % (Auto) (0.0-4.0) % Baso % (Auto) (0.0-2.0) % Neut # (Auto) (1.8-7.7) th/mm3 Lymph # (Auto) (1.0-4.8) th/mm3 [place] # (Auto) (0.0-0.9) th/mm3 Eos # (Auto) (0.0-0.4) th/mm3 Baso # (Auto) (0.0-0.2) th/mm3 WBC Differential Diff Scan Seg Neuts % (Manual) (16-70) % Band Neuts % (Manual) (0-6) % Lymphocytes % (Manual) (9-44) % Monocytes % (Manual) (0-8) % Eosinophils % (Manual) (0-4) % Abs Neuts (Manual) (1.8-7.7) th/mm3 Differential Comment Platelet Estimate (Normal) Platelet Morphology (Normal) PT (9.8-11.6) sec INR Ratio APTT 79.7 H D (24.3-30.1) sec Puncture Site Patient Temperature VBG pH (7.360-7.400) VBG pCO2 (44-48) mmHG VBG pO2 (35-40) mmHG VBG HCO3 (22-26) mmol/L VBG O2 Saturation (70-76) % VBG O2 Content (9.0-17.0) Vol % VBG Base Excess (-2-2) mmol/L VBG Carboxyhemoglobin (0-4) % VBG Methemoglobin (0-2) % Hemoglobin (12.0-16.0) G/DL O2 Delivery Device Inspired O2 % Critical Value Sodium 141 (136-145) meq/L Potassium 3.6 (3.5-5.1) meq/L Chloride 105 (98-107) meq/L Carbon Dioxide 26.7 (21.0-32.0) meq/L Anion Gap 9 (5-15) meq/L BUN 28 H (7-18) mg/dL Creatinine 1.43 H (0.60-1.30) mg/dL Estimated GFR 51 L (>89) mL/min POC Glucose 179 H (68-110) mg/dl Random Glucose 182 H (74-106) mg/dL Lactic Acid (0.4-2.0) mmol/L Uric Acid (2.6-7.2) mg/dl Calcium 7.9 L (8.5-10.1) mg/dL Phosphorus (2.5-4.9) mg/dL Total Bilirubin (0.2-1.0) mg/dL AST (15-37) U/L ALT (12-78) U/L Alkaline Phosphatase (45-117) U/L Ammonia (11-32) mcmol/L Troponin I (0.02-0.05) ng/mL Total Protein (6.4-8.2) g/dL Albumin (3.4-5.0) g/dL Carcinoembryonic Ag 22.5 H (0.2-5.0) ng/mL TSH (0.358-3.740) uIU/mL Urine Color (Yellw/Straw) Urine Clarity (Clear) Urine pH (5.0-8.5) Ur Specific [place] (1.002-1.035) Urine Protein (Neg-Trace) mg/dL Urine Glucose (UA) (Negative) mg/dL Urine Ketones (Negative) mg/dL Urine Occult Blood (Negative) Urine Nitrate (Negative) Urine Bilirubin (Negative) Urine Urobilinogen (Less than 2) mg/dL Ur Leukocyte Esterase (Negative) Urine RBC (0-3) /hpf Urine WBC (0-5) /hpf Amorphous Sediment (None) /hpf Urine Bacteria (None) /hpf Hyaline Casts (0-3) /lpf Urine Mucus (Occasional) /lpf Micro UA Comment Ur Microscopic Review Urine Culture Comments Urine Eosinophils (None Seen) /HPF Ur Random Creatinine (27-300) mg/dL Ur Random Sodium meq/L IgG (660-1640) mg/dL IgA (93-514) mg/dL IgM (40-247) mg/dL [place]/Lambda Ratio (1.57-3.93) GRETA Interpretation KINJAL Screen (Neg) Complement C3 (90-180) mg/dL Complement C4 (10-40) mg/dL [place] Light Chain Anal (170-370) mg/dL [place] Light Chain Anal (90-210) mg/dL Hepatitis A IgM Ab (Nonreactive) Hep Bs Antigen (Nonreactive) Hep B Core IgM Ab (Nonreactive) Hep C IgG Ab (Nonreactive) 03/05/18 Range/Units 10:59 WBC (4.0-11.0) th/mm3 RBC (4.50-5.90) mil/mm3 Hgb (13.0-17.0) gm/dL Hct (39.0-51.0) % MCV (80.0-100.0) fL MCH (27.0-34.0) pg MCHC (32.0-36.0) % RDW (11.6-17.2) % Plt Count (150-450) th/mm3 MPV (7.0-11.0) fL Prelim Diff (Auto) Neut % (Auto) (16.0-70.0) % Lymph % (Auto) (9.0-44.0) % [place] % (Auto) (0.0-8.0) % Eos % (Auto) (0.0-4.0) % Baso % (Auto) (0.0-2.0) % Neut # (Auto) (1.8-7.7) th/mm3 Lymph # (Auto) (1.0-4.8) th/mm3 [place] # (Auto) (0.0-0.9) th/mm3 Eos # (Auto) (0.0-0.4) th/mm3 Baso # (Auto) (0.0-0.2) th/mm3 WBC Differential Diff Scan Seg Neuts % (Manual) (16-70) % Band Neuts % (Manual) (0-6) % Lymphocytes % (Manual) (9-44) % Monocytes % (Manual) (0-8) % Eosinophils % (Manual) (0-4) % Abs Neuts (Manual) (1.8-7.7) th/mm3 Differential Comment Platelet Estimate (Normal) Platelet Morphology (Normal) PT (9.8-11.6) sec INR Ratio APTT (24.3-30.1) sec Puncture Site Patient Temperature VBG pH (7.360-7.400) VBG pCO2 (44-48) mmHG VBG pO2 (35-40) mmHG VBG HCO3 (22-26) mmol/L VBG O2 Saturation (70-76) % VBG O2 Content (9.0-17.0) Vol % VBG Base Excess (-2-2) mmol/L VBG Carboxyhemoglobin (0-4) % VBG Methemoglobin (0-2) % Hemoglobin (12.0-16.0) G/DL O2 Delivery Device Inspired O2 % Critical Value Sodium (136-145) meq/L Potassium (3.5-5.1) meq/L Chloride (98-107) meq/L Carbon Dioxide (21.0-32.0) meq/L Anion Gap (5-15) meq/L BUN (7-18) mg/dL Creatinine (0.60-1.30) mg/dL Estimated GFR (>89) mL/min POC Glucose 174 H (68-110) mg/dl Random Glucose (74-106) mg/dL Lactic Acid (0.4-2.0) mmol/L Uric Acid (2.6-7.2) mg/dl Calcium (8.5-10.1) mg/dL Phosphorus (2.5-4.9) mg/dL Total Bilirubin (0.2-1.0) mg/dL AST (15-37) U/L ALT (12-78) U/L Alkaline Phosphatase (45-117) U/L Ammonia (11-32) mcmol/L Troponin I (0.02-0.05) ng/mL Total Protein (6.4-8.2) g/dL Albumin (3.4-5.0) g/dL Carcinoembryonic Ag (0.2-5.0) ng/mL TSH (0.358-3.740) uIU/mL Urine Color (Yellw/Straw) Urine Clarity (Clear) Urine pH (5.0-8.5) Ur Specific [place] (1.002-1.035) Urine Protein (Neg-Trace) mg/dL Urine Glucose (UA) (Negative) mg/dL Urine Ketones (Negative) mg/dL Urine Occult Blood (Negative) Urine Nitrate (Negative) Urine Bilirubin (Negative) Urine Urobilinogen (Less than 2) mg/dL Ur Leukocyte Esterase (Negative) Urine RBC (0-3) /hpf Urine WBC (0-5) /hpf Amorphous Sediment (None) /hpf Urine Bacteria (None) /hpf Hyaline Casts (0-3) /lpf Urine Mucus (Occasional) /lpf Micro UA Comment Ur Microscopic Review Urine Culture Comments Urine Eosinophils (None Seen) /HPF Ur Random Creatinine (27-300) mg/dL Ur Random Sodium meq/L IgG (660-1640) mg/dL IgA (93-514) mg/dL IgM (40-247) mg/dL [place]/Lambda Ratio (1.57-3.93) GRETA Interpretation KINJAL Screen (Neg) Complement C3 (90-180) mg/dL Complement C4 (10-40) mg/dL [place] Light Chain Anal (170-370) mg/dL Lambda Light Chain Anal (90-210) mg/dL Hepatitis A IgM Ab (Nonreactive) Hep Bs Antigen (Nonreactive) Hep B Core IgM Ab (Nonreactive) Hep C IgG Ab (Nonreactive) Imaging Data Radiologist's impression: Abdomen/Bladder Ultrasound 02/28/18 00:00 CONCLUSION: 1. Concerning findings with respect to the right kidney with asymmetric increased echogenicity of the upper pole as compared to the lower pole and decreased flow identified within the lower pole. Given the findings of PE on prior CT this may reflect sequelae of an embolus to the right kidney. Venous Doppler Study 02/28/18 10:01 CONCLUSION: 1. Extensive left lower extremity deep venous thrombosis; was seen on 2017. Head CT 02/28/18 10:03 CONCLUSION: 1. Negative for acute process . Lumbar Spine CT 02/28/18 11:33 CONCLUSION: 1. Degenerative disc disease asymmetric to left at L5-S1 with prominent osteophytic spur impinging on the traversing left S1 nerve root. Moderate bilateral foraminal narrowing at L5-S1. Chest X-Ray 02/28/18 13:30 CONCLUSION: Negative for acute process Abdomen/Pelvis CT 03/01/18 00:00 CONCLUSION: 1. Ill-defined and partially nodular opacities about the posterior peritoneal margin and in the anterior peritoneum or omentum. This nonspecific in appearance , but is a new finding compared to prior CT scans and suggests possible peritoneal carcinomatosis. Recommend further characterization with PET/CT scan. Catheter Placement 03/01/18 00:00 CONCLUSION: 1. Uncomplicated line placement as above. 2. I believe the right IJ is either quite diminutive or occluded. The small vessel identified intermittently adjacent to the carotid may represent the tortuous external jugular. Renal Scan w/Medication NM 03/03/18 00:00 CONCLUSION: 1. Normal DTPA renogram without obstruction. Split function 54% left 46% right Discharge Plan Discharge Disposition Patient Disposition: 30 Still Patient Discharge Condition Condition: Stable Discharge Details Anticipated Discharge Date: 03/05/18 Diagnosis: Metabolic acidosis, DOMINGUEZ (acute kidney injury) Physicians Team ED Provider: Cresencio Baez Primary Care Provider: Axel Manrique Attending Provider: Travis Austin Other Providers: Dada Rodríguez ; Reynaldo Downs ; Rafael Carr Discharge Interventions Interventions: ED Discharge Assessment Last Done: 03/01/18 01:30 Vital Signs Last Done: 02/28/18 13:18 Status ED Status: Left Department Discharge Information Discharge Date/Time: 03/01/18 01:30
[2018-02-28 10:35] LABS: White Blood Count 8.6 th/mm3 (4.0-11.0)
[2018-02-28 10:36] LABS: Baso # (Auto) 0.1 th/mm3 (0.0-0.2); Baso % (Auto) 0.6 % (0.0-2.0); Eos # (Auto) 0.2 th/mm3 (0.0-0.4); Eos % (Auto) 2.1 % (0.0-4.0); Hematocrit 37.2 % (39.0-51.0); Hemoglobin 12.7 gm/dL (13.0-17.0); Lymph # (Auto) 0.2 th/mm3 (1.0-4.8); Lymph % (Auto) 2.7 % (9.0-44.0); Mean Corpuscular Hemoglobin 35.2 pg (27.0-34.0); Mean Corpuscular Volume 103.5 fL (80.0-100.0); Mean Platelet Volume 7.7 fL (7.0-11.0); Mono # (Auto) 0.6 th/mm3 (0.0-0.9); Mono % (Auto) 6.5 % (0.0-8.0); Neut # (Auto) 7.6 th/mm3 (1.8-7.7); Neut % (Auto) 88.1 % (16.0-70.0); Platelet Count 76 th/mm3 (150-450); Red Blood Count 3.59 mil/mm3 (4.50-5.90); Red Cell Distribution Width 21.7 % (11.6-17.2)
[2018-02-28 10:43] LABS: INR 1.1 Ratio; Prothrombin Time 11.4 sec (9.8-11.6)
--- NOTE | 2018-02-28 10:46 | CT ---
EXAM DATE: 02/28/2018 10:41 AM EDT AGE/SEX: 57 years / Male INDICATIONS: Altered mental status. CLINICAL DATA: This is the patient's initial encounter. Patient reports that signs and symptoms have been present for 1 day and indicates a pain score of 0/10. MEDICAL/SURGICAL HISTORY: Carcinoma, rectal. Hypertension. Diabetes. DVT None. RADIATION DOSE: 39.46 CTDI (mGy) COMPARISON: No prior exams available for comparison. TECHNIQUE: CT of the head without contrast. Using automated exposure control and adjustment of the mA and/or kV according to patient size, radiation dose was kept as low as reasonably achievable to ob tain optimal diagnostic quality images. DICOM format image data is available electronically for revi ew and comparison. FINDINGS: Cerebrum: The ventricles are normal for age. No evidence of midline shift, mass lesion, hemorrhage or acute infarction. No extraaxial fluid collections are seen. Posterior Fossa: The cerebellum and brainstem are intact. The 4th ventricle is midline. The cerebe llopontine angle is unremarkable. Extracranial: The visualized portion of the orbits is intact. Skull: The calvaria is intact. No evidence of skull fracture. CONCLUSION: 1. Negative for acute process . Electronically signed by: Cuauhtemoc Austin MD 02/28/2018 10:44 AM EDT
[2018-02-28 11:17] LABS: Eosinophils 2 % (0-4); Lymphocytes 2 % (9-44); Monocytes 8 % (0-8)
[2018-02-28 11:20] LABS: Platelet Morphology Normal (Normal)
[2018-02-28] MEDS ORDERED: Sod Chloride 0.9% Inj 1,000 ML IV.SIG SCH ×2 (12:15→13:30)
--- NOTE | 2018-02-28 12:24 | US ---
EXAM DATE: 02/28/2018 12:17 PM EDT AGE/SEX: 57 years / Male INDICATIONS: Bilateral leg pain. H/O DVT. CLINICAL DATA: This is the patient's subsequent encounter. Patient reports that signs and symptoms h ave been present for 2 months and indicates a pain score of 5/10. MEDICAL/SURGICAL HISTORY: Deep venous thrombosis. Hypertension. Diabetes. Anxiety. Depressio n. Metastatic rectal cancer. Chemotherapy. Radiation therapy. . Port placement. Right knee surgery. [place] [facility] [place]. . TECHNIQUE: Venous ultrasound of both lower extremities was performed from the inguinal ligament to t he proximal calf. Real-time, color Doppler and spectral tracing, compression and augmentation techni ques were used. FINDINGS: Right Leg: Normal compression of the deep venous system from the inguinal region to the proximal merced f. No echogenic clot is seen. Normal response of the venous system to augmentation and respiration. Left Leg: Extensive deep and superficial venous thrombosis extending from below the knee to the ingu inal ligament. CONCLUSION: 1. Extensive left lower extremity deep venous thrombosis; was seen on 01/21/2018. Electronically signed by: Cuauhtemoc Austin MD 02/28/2018 12:23 PM EDT
[2018-02-28 13:02] LABS: Albumin 3.4 g/dL (3.4-5.0); Anion Gap 19 meq/L (5-15); Aspartate Aminotransferase 23 U/L (15-37); Blood Urea Nitrogen 68 mg/dL (7-18); Calcium 7.9 mg/dL (8.5-10.1); Carbon Dioxide 16.8 meq/L (21.0-32.0); Chloride 96 meq/L (98-107); Glomerular Filtration Rate 10 mL/min (>89); Glucose,Random 141 mg/dL (74-106); Potassium 4.1 meq/L (3.5-5.1); Sodium 132 meq/L (136-145)
[2018-02-28 13:05] LABS: Alanine Aminotransferase 15 U/L (12-78); Alkaline Phosphatase 93 U/L (45-117); Total Protein 6.2 g/dL (6.4-8.2)
[2018-02-28] MEDS ORDERED: Morphine Inj 4 MG/ML Vial IV.PUSH ONE (13:26)
--- NOTE | 2018-02-28 13:40 | CT ---
EXAM DATE: 02/28/2018 12:37 PM EDT AGE/SEX: 57 years / Male INDICATIONS: Lower back pain. CLINICAL DATA: This is the patient's initial encounter. Patient reports that signs and symptoms have been present for 1 day and indicates a pain score of 4/10. MEDICAL/SURGICAL HISTORY: Carcinoma, rectal. Diabetes. None. RADIATION DOSE: 35.86 CTDI (mGy) COMPARISON: No prior exams available for comparison. TECHNIQUE: Contiguous axial images were acquired with a multirow detector CT scanner without contras t. Multiplanar reconstructions in the sagittal and coronal plane were also performed. Using automate d exposure control and adjustment of the mA and/or kV according to patient size, radiation dose was k ept as low as reasonably achievable to obtain optimal diagnostic quality images. DICOM format image data is available electronically for review and comparison. FINDINGS: Sagittal images demonstrate normal vertebral body alignment and curvature. No fractures are identifie d. Axial images performed from T12-L1 through L5-S1. There is disc space narrowing and marginal oste ophyte formation at L5-S1 with endplate sclerosis. An inferior vena cava filter is in place. T12-L1: No significant abnormalities identified. L1-L2: No significant abnormalities identified. L2-L3: No significant abnormalities identified. L3-L4: There is mild diffuse annular bulge of the disc. The neural foramina are clear bilaterally. T here is no significant spinal canal stenosis. L4-L5: There is broad-based annular bulge of disc. There is moderate facet arthritis bilaterally wit h ligamentum flavum hypertrophy. There is minimal spinal canal stenosis. The neural foramina are cl ear bilaterally. L5-S1: There is prominent osteophytic spur asymmetric to the left impinging on the thecal sac and th e traversing left S1 nerve root. There is moderate neural foraminal narrowing bilaterally. There is no significant spinal canal stenosis. CONCLUSION: 1. Degenerative disc disease asymmetric to left at L5-S1 with prominent osteophytic spur impinging o n the traversing left S1 nerve root. Moderate bilateral foraminal narrowing at L5-S1. Electronically signed by: Yusef Lucio MD 02/28/2018 1:38 PM EDT
--- NOTE | 2018-02-28 13:53 | XR ---
EXAM DATE: 02/28/2018 1:51 PM EDT AGE/SEX: 57 years / Male INDICATIONS: Cough. CLINICAL DATA: This is the patient's initial encounter. Patient reports that signs and symptoms have been present for 1 day and indicates a pain score of 0/10. MEDICAL/SURGICAL HISTORY: . Deep venous thrombosis. Hypertension. Diabetes. Anxiety. Depression . Metastatic rectal cancer. Chemotherapy. Radiation therapy. . Port placement. Right knee surgery. COMPARISON: [facility] – [place], CHEST SINGLE AP, 06/01/2016. . FINDINGS: A single AP view of the chest demonstrates the lungs to be symmetrically aerated without evidence of mass, infiltrate or effusion. [id number] on the right. The cardiomediastinal contours are unremar kable. Osseous structures are intact. CONCLUSION: Negative for acute process Electronically signed by: Cuauhtemoc Austin MD 02/28/2018 1:52 PM EDT
[2018-02-28 13:58] LABS: VBG Base Excess -9.1 mmol/L (-2-2); VBG Blood Gas Oxygen Content 6.9 Vol % (9.0-17.0); VBG PCO2 40 mmHG (44-48); VBG PH 7.25 (7.360-7.400); VBG PO2 28 mmHG (35-40)
--- NOTE | 2018-02-28 14:33 | P.HPIM ---
History of Present Illness Service: cp hospitalist Primary Care Physician: Axel Manrique MD Chief Complaint: Weakness History of Present Illness: Mr. 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 Patient was recently admitted to [facility] from 01/21/18 - 01/28/18 and was found to have an extensive DVT in the left lower extremity thrombus with occlusive thrombus in the common femoral vein, superficial femoral vein, popliteal vein and down to the distal posterior tibial vein. He was also found to have extensive bilateral pulmonary disease embolic disease. Patient was started on heparin drip at admission and was converted to Lovenox on the day of discharge and per Oncology recommendations pt had a retrievable IVC filter placed. Pt was discharged to [facility] and was there for a few days and then discharged home to continue Lovenox. Pt was brought back into the ED at [facility] on 02/28/18 after he was found down by his landlord. Pt states that he has had increased pain in the LE because he has been out of his pain medications for the last two days. He had been ambulating with the help of a walker but has had increased weakness in his LE and increased difficulty ambulating. He complains of his feet being cold especially the left foot which has contributed to his pain in his legs and difficulty ambulating. He states that he has been drinking water daily but yesterday he did not eat much. He has been taking the Xeloda daily. He reports that he has been urinating at home without difficulty and denies any dark or concentrated urine. He states that he has not taken any Lovenox in the last week because of an issue with getting it from the pharmacy. He was also out of his Neurontin. He has been taking his Metformin and Tresiba 40 units in the AM and 40 units in the PM but does not always take this twice daily. He denies any nausea/vomiting , diarrhea, constipation, abd pain. He denies taking any Motrin, Ibuprofen, Goody powder, Advil, or ASA. 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 Hernandez Bilateral PE LLE extensive DVT Diabetes mellitus HTN Hypertriglyceridemia Vianey's thyroiditis ELIAZAR Secondary Polycythemia RBBB Hx of LE DVT following surgery in 2012 Past Surgical History Colonoscopy by Dr. Carr (September 2017) --> Normal ileocecal valve. 5-6 cm cancer in the anus, lower vault, ulcerated. Mild diverticular disease rectosigmoid colon. Pathology --> Invasive adenocarcinoma, well differentiated Liver biopsy (October 2017) metastatic moderately differentiated adenocarcinoma with necrosis, consistent with metastasis from a colonic primary Rectal EUS (01/28/18) --> Small rectal polyp. Anorectal mass infiltrating into the pericolonic tissue is noted on the EUS. A mildly hypoechoic mass measuring at least 1 x 2.3 cm with no regional lymph nodes not obvious vascular invasion. The staging for this is T3 N0. Right knee arthroscopy 2012 Family History Noncontributory Social History (+)Tobacco use, pt has smoked approximately 1 pack per day for many years but has decreased down to around 1-2 cigarettes per day. Denies any alcohol or illicit drug use - Diagnosis (1) Acute renal failure (ARF) Plans for Post Hospital Care: Not yet determined Review of Systems Constitutional: Reports chills, Reports weakness, Denies fever(s), Denies night sweats Eyes: Denies change in vision, Denies loss of vision Ears, Nose, Mouth, and Throat: Reports dizziness, Denies nosebleed Cardiovascular: Reports leg swelling, Denies chest pain Respiratory: Denies cough, Denies shortness of breath, Denies shortness of breath with activity, Denies wheezing Gastrointestinal: Denies abdominal pain, Denies constipation, Denies heartburn, Denies loose stools, Denies nausea, Denies vomiting Genitourinary: Denies urinary frequency, Denies urinary urgency Musculoskeletal: Denies back pain Skin/Breast: Denies rash Neurologic: Reports weakness, Denies dizziness PMFSH - History History Provided By: Patient - Medical History Medical History: Medical History (Last Reviewed 03/03/18 @ 08:07 by Terry Freedman) Anxiety DVT (deep venous thrombosis) Depression Diabetes type 2, controlled HTN (hypertension) Light-headedness Port-A-Cath in place Rectal cancer - Surgical History Surgical History: Surgical History (Last Reviewed 03/03/18 @ 08:07 by Terry Freedman) Hx of right knee surgery Status post chemotherapy Status post radiation therapy - Tobacco History Second Hand Smoke Exposure: Yes Tobacco Use In Past 30 Days: Yes Smoking Status: Current every day smoker Tobacco Type: Cigarettes - Alcohol History How Often Do You Have a Drink Containing Alcohol: Never - Substance Use History Substance History: No History of Abuse - Travel History Recent Travel in the USA Within the Last 8 Weeks: No Recent Travel Out of the Country Within the Last 8 Weeks: No - Immunization History Tetanus Immunization: Unsure Medications and Allergies Allergies Allergy/AdvReac Type Severity Reaction Status Date / Time warfarin Allergy Unknown Rash Verified 11/12/17 13:02 Home Medications Medication Instructions Recorded Confirmed Type capecitabine [Xeloda] 1,500 mg PO Q12H 01/21/18 02/28/18 History dapagliflozin [Farxiga] 10 mg PO QAM 01/21/18 02/28/18 History hydrocortisone [Proctozone-HC] 1 applic [place] DAILY PRN 02/28/18 02/28/18 History insulin degludec [Tresiba 50 unit SUB-Q DAILY 02/28/18 02/28/18 History FlexTouch U-100] Active Medications: Active Medications Sodium Chloride (Ns Inj) 1,000 mls @ 0 mls/hr IV.SIG BOLUS JAZMINE Last Admin: 02/28/18 13:37 Dose: 1,000 mls/hr Sodium Chloride (Ns Inj) 1,000 mls @ 0 mls/hr IV.SIG BOLUS JAZMINE Last Admin: 02/28/18 13:37 Dose: 1,000 mls/hr Sodium Chloride (Ns Flush) 2 ml IV.FLUSH PRN PRN PRN Reason: FLUSH AFTER USING IV ACCESS Exam Vital signs: Vital Signs 02/28/18 09:53 02/28/18 10:05 02/28/18 12:08 Temperature 98.1 F Pulse Rate 100 H 78 Respiratory Rate 18 17 Blood Pressure 95/52 L 84/50 L Pulse Oximetry 96 96 100 02/28/18 13:18 Temperature Pulse Rate 91 H Respiratory Rate 17 Blood Pressure 109/66 Pulse Oximetry 97 Intake & Output 02/27/18 02/28/18 02/28/18 18:59 06:59 18:59 Weight 99.79 kg heart reg lung cta abd s/nt ext left leg edema Narrative: GENERAL: NAD, AAOx3 SKIN: Warm and dry. HEENT: Atraumatic. Normocephalic. Pupils equal and round. No scleral icterus. No injection or drainage. No nasal bleeding or discharge. Mucous membranes pink and moist. NECK: Trachea midline. No JVD. CARDIO: Regular rate and rhythm. RESP: No accessory muscle use. Clear to auscultation. Breath sounds equal bilaterally. ABD: +BS, soft, non-tender, nondistended. Hepatic and splenic margins not palpable. EXT: LLE swelling and some erythema around the knee. No obvious deformities. NEURO: Awake and alert. No obvious cranial nerve deficits. Motor grossly within normal limits. Five out of 5 muscle strength in the arms and legs. Normal speech. PSYCHIATRIC: Appropriate mood and affect; insight and judgment normal. Results - Labs CBC & Chem 7: 03/05/18 04:40 03/05/18 04:40 Labs: Short CBC 02/28/18 Range/Units 10:15 WBC 8.6 (4.0-11.0) th/mm3 Hgb 12.7 L (13.0-17.0) gm/dL Hct 37.2 L (39.0-51.0) % Plt Count 76 L D (150-450) th/mm3 BMP 02/28/18 10:18 Sodium 132 L Potassium 4.1 Chloride 96 L Carbon Dioxide 16.8 L BUN 68 H Creatinine 6.06 H Calcium 7.9 L Cardiac Enzymes 02/28/18 Range/Units 10:18 Troponin I Less than 0.02 L (0.02-0.05) ng/mL Liver Function 02/28/18 Range/Units 10:18 Total Bilirubin 0.9 (0.2-1.0) mg/dL AST 23 (15-37) U/L ALT 15 (12-78) U/L Alkaline Phosphatase 93 (45-117) U/L Albumin 3.4 (3.4-5.0) g/dL - Imaging Impressions Venous Doppler Study 02/28/18 10:01 CONCLUSION: 1. Extensive left lower extremity deep venous thrombosis; was seen on 2017. Head CT 02/28/18 10:03 CONCLUSION: 1. Negative for acute process Lumbar Spine CT 02/28/18 11:33 CONCLUSION: 1. Degenerative disc disease asymmetric to left at L5-S1 with prominent osteophytic spur impinging on the traversing left S1 nerve root. Moderate bilateral foraminal narrowing at L5-S1. Chest X-Ray 02/28/18 13:30 CONCLUSION: Negative for acute process Caprini VTE Risk Assessment Caprini VTE Risk Assessment: Moderate/High Risk (score >= 2) Caprini Risk Assessment Model: Point Value = 1 Point Value = 2 Point Value = 3 Point Value = 5 Age 41-60 Minor surgery BMI > 25 kg/m2 Swollen legs Varicose veins or History of unexplained or recurrent spontaneous Oral contraceptives or hormone replacement Sepsis (< 1 month) Serious lung disease, including pneumonia (< 1 month) Abnormal pulmonary function Acute myocardial infarction Congestive heart failure (< 1 month) History of inflammatory bowel disease Medical patient at bed rest Age 61-74 Arthroscopic surgery Major open surgery (> 45 min) Laparoscopic surgery (> 45 min) Malignancy Confined to bed (> 72 hours) Immobilizing plaster cast Central venous access Age >= 75 History of VTE Family history of VTE Factor V Leiden Prothrombin [id number] Lupus anticoagulant Anticardiolipin antibodies Elevated serum homocysteine Heparin-induced thrombocytopenia Other congenital or acquired thrombophilia Stroke (< 1 month) Elective arthroplasty Hip, pelvis, or leg fracture Acute spinal cord injury (< 1 month) Prophylaxis Regimen: Total Risk Factor Score Risk Level Prophylaxis Regimen 0-1 Low Early ambulation 2 Moderate Order ONE of the following: *Sequential Compression Device (SCD) *Heparin 5000 units SQ BID 3-4 Higher Order ONE of the following medications: *Heparin 5000 units SQ TID *Enoxaparin/Lovenox 40 mg SQ daily (WT < 150 kg, CrCl > 30 mL/min) *Enoxaparin/Lovenox 30 mg SQ daily (WT < 150 kg, CrCl > 10-29 mL/min) *Enoxaparin/Lovenox 30 mg SQ BID (WT < 150 kg, CrCl > 30 mL/min) AND/OR *Sequential Compression Device (SCD) 5 or more Highest Order ONE of the following medications: *Heparin 5000 units SQ TID (Preferred with Epidurals) *Enoxaparin/Lovenox 40 mg SQ daily (WT < 150 kg, CrCl > 30 mL/min) *Enoxaparin/Lovenox 30 mg SQ daily (WT < 150 kg, CrCl > 10-29 mL/min) *Enoxaparin/Lovenox 30 mg SQ BID (WT < 150 kg, CrCl > 30 mL/min) AND *Sequential Compression Device (SCD) Assessment and Plan - Assessment (1) Acute renal failure (ARF) Code(s): N17.9 - Acute kidney failure, unspecified Status: Acute Plan: Acute Renal Failure - Pt is a pleasant 57 y/o WM with 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 - Pt was brought into the ED at [facility] on 02/28/18 with generalized weakness after being found down on the floor by his land lord. - He was notably hypotensive at admission and found to be in acute renal failure with Cr 6.06/BUN 68. His previous Cr was 0.76 in 01/2018. - The etiology for his ARF is unclear, possible related to volume depletion vs. hypotension/underperfusion vs. possible infection vs. other. Pt denies any NSAID use and denies any recent N/V/D. - Obtain Renal US - Pt has been given IVF in the ED and we will continue this - Check Urine Na and eosinophils - Consult Nephrology - Obtain blood cultures - Once blood cultures are obtained we will given some broad spectrum Abx. - Repeat labs in AM - Avoid nephrotoxic medications - Hold THERON - Supportive care - PT evaluation in AM - Pt will be started back on Heparin without bolus for his DVT LLE DVT Bilateral PE - Pt has been without Lovenox for the last week - He had a repeat LLE US at admission which noted extensive left lower extremity deep venous thrombosis which was seen previously on 01/21/2018. - Due to his DOMINGUEZ we cannot resume Lovenox at this time - He will be started on Heparin IV with no bolus HTN Hypotension - Hold home meds - Give IVF - Monitor BP Adenocarcinoma of the rectum/anal canal dx 06/2017 with liver metastasis - Pt follows with Dr. Hernandez - He has been on Xeloda, this will need to be held due to DOMINGUEZ - Pt reportedly had an outpt PET scan but I do not have the results of this. - During his last admission he had Rectal EUS (01/28/18) --> Small rectal polyp. Anorectal mass infiltrating into the pericolonic tissue is noted on the EUS. A mildly hypoechoic mass measuring at least 1 x 2.3 cm with no regional lymph nodes not obvious vascular invasion. The staging for this is T3 N0. Diabetes Mellitus - Hold outpt medications - NovoLog SSI The exam, history, and the medical decision-making described in the above note were completed with the assistance of the mid-level provider. I reviewed and agree with the findings presented. I attest that I had a [id number] encounter with the patient on the same day, and personally performed and documented my assessment and findings in the medical record.
[2018-02-28] MEDS ORDERED: Dextrose 50% in Water 50 ML Vial IV.PUSH PRN (15:41)
--- NOTE | 2018-02-28 16:14 | US ---
EXAM DATE: 02/28/2018 4:09 PM EDT AGE/SEX: 57 years / Male INDICATIONS: Increased BUN/Creatinine. CLINICAL DATA: This is the patient's initial encounter. Patient reports that signs and symptoms have been present for 1 day and indicates a pain score of 0/10. MEDICAL/SURGICAL HISTORY: Diabetes mellitus type II. Deep venous thrombosis. Hypertension. M etastatic rectal cancer. Status post chemo. Status post radiation. . Port-A-Cath placement. Right kn ee surgery. COMPARISON: [facility], [facility]A PULMONARY W CONTRAST W 3D, 01/21/2018. . MEASUREMENTS: Right Kidney:__12.7 x 6.4 x 6.6 cm Left Kidney:__12.8 x 5.6 x 7.0 cm FINDINGS: Right Kidney: There is mild increased echogenicity of the renal parenchyma of the right kidney and va scular evaluation demonstrates asymmetric blood flow between the upper and lower pole of the right ki dney. The lower pole demonstrates slight decreased echogenicity. Left Kidney: Normal echotexture and cortical thickness. No mass or hydronephrosis. Bladder: Within normal limits given the degree of distension. Other: None. CONCLUSION: 1. Concerning findings with respect to the right kidney with asymmetric increased echogenicity of th e upper pole as compared to the lower pole and decreased flow identified within the lower pole. Given the findings of PE on prior CT this may reflect sequelae of an embolus to the right kidney. Electronically signed by: Gisela Morgan MD 02/28/2018 4:13 PM EDT
[2018-02-28] MEDS: Sod Chloride 0.9% Inj 1,000 ML IV.CONT SCH (16:16)
[2018-02-28] MEDS: Insulin NovoLOG Aspart Correctional Sugar Inj SQ SCH ×2 (17:28→22:36)
[2018-02-28] MEDS: Heparin Drip 25,000 UNIT/250 ML BAG IV.CONT PRN (17:49)
--- NOTE | 2018-02-28 20:43 | P.CONNP ---
History of Present Illness Service: Nephrology Consult date: 02/28/18 Requesting Physician: Travis Austin Reason for Consult: Acute renal failure Primary Care Provider: Axel Manrique MD Chief Complaint: Weakness History of Present Illness: Patient is a 57-year-old white male with history of stage IV metastatic adenocarcinoma of rectum with liver involvement who has been recently discharged from the hospital after having extensive DVT involving the left leg, patient has been taking Xeloda, patient had IVC filter placed as well and was on Lovenox, patient states that he was having increased pain in the left leg in was unable to ambulate had some mild abdominal pain: His urine output has dropped use said he has passed urine prior to coming to the hospital, ultrasound of the kidney was done which showed poor perfusion to the right kidney, possibly embolic disease. Review of Systems Constitutional: Reports lack of energy Cardiovascular: Reports shortness of breath Gastrointestinal: Reports abdominal pain, Reports heartburn, Reports nausea Musculoskeletal: Reports abnormal walking, Reports back pain, Reports muscle cramps, Reports muscle weakness, Reports radiating pain into limb Neurologic: Reports weakness PMFSH - History History Provided By: Patient - Medical History Medical History: Medical History (Last Reviewed 01/29/18 @ 10:40 by Anum Nolan) Anxiety DVT (deep venous thrombosis) Depression Diabetes type 2, controlled HTN (hypertension) Light-headedness Port-A-Cath in place Rectal cancer - Surgical History Surgical History: Surgical History (Last Reviewed 01/29/18 @ 10:40 by Anum Nolan) Hx of right knee surgery Status post chemotherapy Status post radiation therapy - Tobacco History Second Hand Smoke Exposure: Yes Tobacco Use In Past 30 Days: Yes Smoking Status: Current every day smoker Tobacco Type: Cigarettes - Alcohol History How Often Do You Have a Drink Containing Alcohol: Never - Substance Use History Substance History: No History of Abuse - Travel History Recent Travel in the [place] Within the Last 8 Weeks: No Recent Travel Out of the Country Within the Last 8 Weeks: No - Immunization History Tetanus Immunization: Unsure Medications and Allergies Active Medications: Active Medications Dextrose (D50w Vial) 50 ml IV.PUSH UNSCH PRN PRN Reason: PER HYPOGLYCEMIA PROTOCOL Gabapentin (Neurontin) 100 mg PO HS JAZMINE Glucagon (Glucagon Inj) 1 mg OTHER UNSCH PRN PRN Reason: for Hypoglycemia Protocol Heparin Sodium (Porcine) (Heparin Inj) 5,000 units IV.PUSH UNSCH PRN PRN Reason: aPTT < 25 Heparin Sodium (Porcine) (Heparin Inj) 2,500 units IV.PUSH UNSCH PRN PRN Reason: aPTT 25-39 Sodium Chloride (Ns Inj) 1,000 mls @ 0 mls/hr IV.SIG BOLUS JAZMINE Last Infusion: 02/28/18 14:55 Dose: Infused Sodium Chloride (Ns Inj) 1,000 mls @ 0 mls/hr IV.SIG BOLUS JAZMINE Last Infusion: 02/28/18 14:55 Dose: Infused Sodium Chloride (Ns Inj) 1,000 mls @ 100 mls/hr IV.CONT .Q10H JAZMINE Last Admin: 02/28/18 16:16 Dose: 100 mls/hr Heparin Sodium/Dextrose (Heparin/D5w 25,000 U/250 Ml) 25,000 unit in 250 mls @ 17.962 mls/hr IV.CONT TITRATE PRN; Protocol PRN Reason: Per Protocol Last Admin: 02/28/18 17:49 Dose: 18 units/kg/hr, 17.96 mls/hr Insulin Aspart (Novolog Insulin Correctional Sugar Inj) 0 unit SQ ACHS JAZMINE; Protocol Last Admin: 02/28/18 17:28 Dose: Not Given Morphine Sulfate (Morphine Inj) 4 mg IV.PUSH Q4H PRN PRN Reason: breakthrough pain above 7 Ondansetron HCl (Zofran Inj) 4 mg IV.PUSH Q6H PRN PRN Reason: n/v Oxycodone HCl (Roxicodone) 20 mg PO Q4H [facility] Last Admin: 02/28/18 16:15 Dose: 20 mg Pantoprazole Sodium (Protonix) 40 mg PO DAILY [facility] Sodium Chloride (Ns Flush) 2 ml IV.FLUSH PRN PRN PRN Reason: FLUSH AFTER USING IV ACCESS Allergies Allergy/AdvReac Type Severity Reaction Status Date / Time warfarin Allergy Unknown Rash Verified 11/12/17 13:02 Home Medications Medication Instructions Recorded Confirmed Type capecitabine [Xeloda] 1,500 mg PO Q12H 01/21/18 02/28/18 History dapagliflozin [Farxiga] 10 mg PO QAM 01/21/18 02/28/18 History hydrocortisone [Proctozone-HC] 1 applic [place] DAILY PRN 02/28/18 02/28/18 History insulin degludec [Tresiba 50 unit SUB-Q DAILY 02/28/18 02/28/18 History FlexTouch U-100] lisinopril 20 mg PO DAILY 02/28/18 02/28/18 History pravastatin 10 mg PO DAILY 02/28/18 02/28/18 History Exam Vital signs: Vital Signs 02/28/18 09:53 02/28/18 10:05 02/28/18 12:08 Temperature 98.1 F Pulse Rate 100 H 78 Respiratory Rate 18 17 Blood Pressure 95/52 L 84/50 L Pulse Oximetry 96 96 100 02/28/18 13:18 02/28/18 15:46 02/28/18 16:06 Temperature Pulse Rate 91 H 104 H 71 Respiratory Rate 17 19 17 Blood Pressure 109/66 120/72 121/81 Pulse Oximetry 97 100 Intake & Output 02/28/18 02/28/18 03/01/18 06:59 18:59 06:59 Intake Total 1999 Balance 1999 Weight 99.79 kg Intake: IV 1999 NS Inj 1,000 ML @ Wide Open IV. 1999 SIG BOLUS JAZMINE Rx#:[id number] - Constitutional no acute distress - Routine HEENT Exam Head: Present: normocephalic Eye: Present: EOMI - Routine Neck Exam Present: supple - Routine Respiratory Exam Present: decreased breath sounds (At the bases) - Routine Cardiovascular Exam Present: RRR - Routine Abdominal Exam Present: soft, tenderness - Routine Extremities Exam Present: edema - Routine Neurological Exam Present: alert Results - Lab Results 02/28/18 10:15 02/28/18 10:18 Most recent lab results Calcium 7.9 mg/dL (8.5-10.1) L 02/28/18 10:18 Assessment and Plan - Assessment (1) DVT (deep venous thrombosis) Code(s): I82.409 - Acute embolism and thrombosis of unspecified deep veins of unspecified lower extremity Status: Acute (2) Acute pulmonary embolism Code(s): I26.99 - Other pulmonary embolism without acute cor pulmonale Status : Acute (3) Rectal cancer metastasized to liver Code(s): C20 - Malignant neoplasm of rectum; C78.7 - Secondary malignant neoplasm of liver and intrahepatic bile duct Status: Acute (4) DM type 2 (diabetes mellitus, type 2) Code(s): E11.9 - Type 2 diabetes mellitus without complications Status: Chronic (5) Acute renal failure (ARF) Code(s): N17.9 - Acute kidney failure, unspecified Status: Acute - Plan Patient has possibility of thromboembolic phenomena, patient is on Xeloda, he could be complication of his cancer or chemotherapeutic agent, acute renal failure appears to be worsening, his urine output has declined, the right renal appearance is grossly abnormal on ultrasound will obtain CT scan of the abdomen Check KINJAL, serum complement Patient is on heparin Urine output is remains poor Patient may likely need hemodialysis port placement Overall prognosis is poor due to multiple comorbid condition Avoid nephrotoxic agents Monitor BMP (4) DM type 2 (diabetes mellitus, type 2) Qualifiers: 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
[2018-02-28] MEDS ORDERED: Diatrizoate Meglum/Diatrizoate Sod Liq 9 ML UDC PO ONE (21:15)
[2018-02-28] MEDS: Gabapentin 100 MG Capsule PO SCH (22:28)
[2018-02-28 22:55] LABS: Amorphous Sediment,Urine Rare /hpf; Bacteria,Urine Rare /hpf; Bilirubin,Urine Negative (Negative); Clarity,Urine Hazy (Clear); Color,Urine Yellow (Yellw/Straw); Glucose,Urine (UA) 500 or Greater mg/dL (Negative); Hyaline Casts,Urine 15 /lpf (0-3); Leukocyte Esterase,Urine Negative (Negative); Mucus,Urine Few /lpf (Occasional); Nitrite,Urine Negative (Negative); Specific Gravity,Urine 1.016 (1.002-1.035)
[2018-02-28] MEDS ORDERED: Heparin 10,000 UNITS/10 ML Vial (for IV use) IV.PUSH PRN ×2 (22:57)
[2018-02-28 23:32] LABS: Phosphorus 8.4 mg/dL (2.5-4.9)
[2018-03-01 00:03] LABS: Kappa Lambda Ratio 1.37 (1.57-3.93)
--- NOTE | 2018-03-01 01:03 | CT ---
EXAM DATE: 03/01/2018 12:43 AM EDT AGE/SEX: 57 years / Male INDICATIONS: Abdominal pain. CLINICAL DATA: This is the patient's initial encounter. Patient reports that signs and symptoms have been present for 1 day and indicates a pain score of 4/10. MEDICAL/SURGICAL HISTORY: Carcinoma, rectal. Hypertension. Deep venous thrombosis. Diabetes. None. RADIATION DOSE: 16.97 CTDI (mGy) COMPARISON: POI, CT ABDOMEN AND PELVIS W/ CONTRAST, 10/17/2017. . TECHNIQUE: Multiple contiguous axial images were obtained through the abdomen. Images were obtained using multiple row detector helical technique. Using automated exposure control and adjustment of the mA and/or kV according to patient size, radiation dose was kept as low as reasonably achievable to o btain optimal diagnostic quality images. DICOM format image data is available electronically for rev iew and comparison. FINDINGS: Moderate image degradation due to the patient's arms being the [id number] of the upper a bdomen. Lower Lungs: Small irregular opacity in the right costophrenic angle without air bronchograms finding from prior CT probably represents linear atelectasis. Liver: The liver has a homogeneous density without space-occupying lesion for noncontrast technique a nd given the artifact from patient's arms in the [id number]. There is no dilation of the biliary t ree. Small calcified gallstones similar to prior CT in November 2017. Spleen: Homogeneous density without enlargement. Pancreas: Unremarkable without mass or calcification. Kidneys: Normal in size and shape. No evidence of mass or hydronephrosis. Adrenal Glands: Unremarkable. Aorta: The aorta and proximal iliac vessels are grossly unremarkable without aneurysmal dilation. Bowel/Mesentery: No dilated loops of small or large bowel. There is some mild hazy density in the an terior peritoneum or omentum which is a new finding from prior CT. Abdominal Wall: Intact. Retroperitoneum: No evidence of adenopathy in the retrocrural, para-aortic, or deep pelvic regions. There is bilateral thickening of the posterior peritoneum with some nodularity; this is a new finding when compared to prior CT. IVC filter in place. No evidence of free fluid. Bladder: Contours are smooth. Reproductive Organs: No abnormal masses or calcifications seen. Inguinal: The inguinal region is unremarkable without evidence of adenopathy. Bony Structures: Unremarkable. CONCLUSION: 1. Ill-defined and partially nodular opacities about the posterior peritoneal margin and in the ante rior peritoneum or omentum. This nonspecific in appearance, but is a new finding compared to prior CT scans and suggests possible peritoneal carcinomatosis. Recommend further characterization with PET/C T scan. Electronically signed by: Wong Bell MD 03/01/2018 1:02 AM EDT
[2018-03-01] MEDS: Sod Chloride 0.9% Inj 1,000 ML IV.CONT SCH ×3 (04:33→23:26)
[2018-03-01 04:47] LABS: Baso % (Auto) 0.3 % (0.0-2.0); Eos # (Auto) 0.1 th/mm3 (0.0-0.4); Eos % (Auto) 1.3 % (0.0-4.0); Hemoglobin 11.4 gm/dL (13.0-17.0); Lymph # (Auto) 0.3 th/mm3 (1.0-4.8); Mean Corpuscular HGB Conc 34.4 % (32.0-36.0); Mean Corpuscular Hemoglobin 35.2 pg (27.0-34.0); Mean Corpuscular Volume 102.3 fL (80.0-100.0); Mean Platelet Volume 7.2 fL (7.0-11.0); Mono # (Auto) 0.7 th/mm3 (0.0-0.9); Mono % (Auto) 10.5 % (0.0-8.0); Neut # (Auto) 5.6 th/mm3 (1.8-7.7); Neut % (Auto) 83.9 % (16.0-70.0); Platelet Count 76 th/mm3 (150-450); Red Blood Count 3.23 mil/mm3 (4.50-5.90); Red Cell Distribution Width 21.3 % (11.6-17.2); White Blood Count 6.7 th/mm3 (4.0-11.0)
[2018-03-01 05:09] LABS: Calcium 7.9 mg/dL (8.5-10.1); Carbon Dioxide 20.1 meq/L (21.0-32.0); Potassium 4.3 meq/L (3.5-5.1)
[2018-03-01 08:15] LABS: Platelet Morphology Normal (Normal)
[2018-03-01] MEDS: Heparin Drip 25,000 UNIT/250 ML BAG IV.CONT PRN (08:38)
[2018-03-01] MEDS: Insulin NovoLOG Aspart Correctional Sugar Inj SQ SCH ×4 (08:45→21:12)
--- NOTE | 2018-03-01 08:51 | P.PNIM ---
Subjective Interval history: pt not urinating much. no n/v/d Physical Exam Vital signs: Vital Signs 02/28/18 09:53 02/28/18 10:05 02/28/18 12:08 Temperature 98.1 F Pulse Rate 100 H 78 Respiratory Rate 18 17 Blood Pressure 95/52 L 84/50 L Pulse Oximetry 96 96 100 02/28/18 13:18 02/28/18 15:46 02/28/18 16:06 Temperature Pulse Rate 91 H 104 H 71 Respiratory Rate 17 19 17 Blood Pressure 109/66 120/72 121/81 Pulse Oximetry 97 100 03/01/18 00:00 03/01/18 01:40 03/01/18 03:00 Temperature 98.6 F 98.4 F Pulse Rate 102 H 98 H Respiratory Rate 18 16 Blood Pressure 122/63 92/51 L Pulse Oximetry 98 99 97 03/01/18 03:05 03/01/18 04:00 03/01/18 08:32 Temperature 98.4 F Pulse Rate 98 H 98 H Respiratory Rate 16 Blood Pressure 92/51 L Pulse Oximetry 97 95 Intake & Output 02/28/18 03/01/18 03/01/18 18:59 06:59 18:59 Intake Total 1999 1240 / 1240 250 / 250 Output Total 0 / 0 Balance 1999 1240 / 1240 250 / 250 Weight 99.79 kg 190 kg Intake: IV 1999 1000 / 1000 250 / 250 Heparin/D5W 25,000 U/250 mL 25, 250 / 250 000 unit In 250 ml @ 18 UNITS/ KG/HR 17.962 mls/hr IV.CONT TITRATE PRN Rx#:[id number] NS Inj 1,000 ML @ 100 mls/hr IV 1000 / 1000 .CONT .Q10H JAZMINE Rx#:[id number] NS Inj 1,000 ML @ Wide Open IV. 1999 SIG BOLUS JAZMINE Rx#:[id number] Oral 240 / 240 Output: Urine 0 / 0 lying in bed no distress oriented heart reg lung course bs abd s/nt ext left leg tender/swollen. Results - Labs CBC & Chem 7: 03/01/18 04:14 03/01/18 04:14 Laboratory Results - last 24 hr 02/28/18 02/28/18 02/28/18 10:15 10:15 10:15 WBC 8.6 RBC 3.59 L Hgb 12.7 L Hct 37.2 L MCV 103.5 H MCH 35.2 H MCHC 34.0 RDW 21.7 H Plt Count 76 L D MPV 7.7 Prelim Diff (Auto) Slide review pending Neut % (Auto) 88.1 H Lymph % (Auto) 2.7 L Boyle % (Auto) 6.5 Eos % (Auto) 2.1 Baso % (Auto) 0.6 Neut # (Auto) 7.6 Lymph # (Auto) 0.2 L Boyle # (Auto) 0.6 Eos # (Auto) 0.2 Baso # (Auto) 0.1 WBC Differential Manual diff final Diff Scan Seg Neuts % (Manual) 84 H Band Neuts % (Manual) 4 Lymphocytes % (Manual) 2 L Monocytes % (Manual) 8 Eosinophils % (Manual) 2 Abs Neuts (Manual) 7.6 Differential Comment . Platelet Estimate Low L Platelet Morphology Normal PT 11.4 INR 1.1 APTT 26.0 Puncture Site Patient Temperature VBG pH VBG pCO2 VBG pO2 VBG HCO3 VBG O2 Saturation VBG O2 Content VBG Base Excess VBG Carboxyhemoglobin VBG Methemoglobin Hemoglobin O2 Delivery Device Inspired O2 Critical Value Sodium Potassium Chloride Carbon Dioxide Anion Gap BUN Creatinine Estimated GFR POC Glucose Random Glucose Lactic Acid Calcium Phosphorus Total Bilirubin AST ALT Alkaline Phosphatase Ammonia Troponin I Total Protein Albumin TSH 2.150 Urine Color Urine Clarity Urine pH Ur Specific [place] Urine Protein Urine Glucose (UA) Urine Ketones Urine Occult Blood Urine Nitrate Urine Bilirubin Urine Urobilinogen Ur Leukocyte Esterase Urine RBC Urine WBC Amorphous Sediment Urine Bacteria Hyaline Casts Urine Mucus Micro UA Comment Ur Microscopic Review Urine Culture Comments Urine Eosinophils Ur Random Sodium IgG IgA IgM [place]/Lambda Ratio Complement C3 Complement C4 [place] Light Chain Anal Lambda Light Chain Anal 02/28/18 02/28/18 02/28/18 10:18 10:18 13:40 WBC RBC Hgb Hct MCV MCH MCHC RDW Plt Count MPV Prelim Diff (Auto) Neut % (Auto) Lymph % (Auto) Boyle % (Auto) Eos % (Auto) Baso % (Auto) Neut # (Auto) Lymph # (Auto) Boy[place] # (Auto) Eos # (Auto) Baso # (Auto) WBC Differential Diff Scan Seg Neuts % (Manual) Band Neuts % (Manual) Lymphocytes % (Manual) Monocytes % (Manual) Eosinophils % (Manual) Abs Neuts (Manual) Differential Comment Platelet Estimate Platelet Morphology PT INR APTT Puncture Site Drawn by rn Patient Temperature 98.6 VBG pH 7.25 L* VBG pCO2 40 L VBG pO2 28 L* VBG HCO3 17 L VBG O2 Saturation 42 L VBG O2 Content 6.9 L VBG Base Excess -9.1 L VBG Carboxyhemoglobin 2.1 VBG Methemoglobin 0.7 Hemoglobin 11.6 L O2 Delivery Device Room air Inspired O2 21 Critical Value Yes Sodium 132 L Potassium 4.1 Chloride 96 L Carbon Dioxide 16.8 L Anion Gap 19 H BUN 68 H Creatinine 6.06 H Estimated GFR 10 L POC Glucose Random Glucose 141 H Lactic Acid Calcium 7.9 L Phosphorus Total Bilirubin 0.9 AST 23 ALT 15 Alkaline Phosphatase 93 Ammonia 12 Troponin I Less than 0.02 L Total Protein 6.2 L Albumin 3.4 TSH Urine Color Urine Clarity Urine pH Ur Specific [place] Urine Protein Urine Glucose (UA) Urine Ketones Urine Occult Blood Urine Nitrate Urine Bilirubin Urine Urobilinogen Ur Leukocyte Esterase Urine RBC Urine WBC Amorphous Sediment Urine Bacteria Hyaline Casts Urine Mucus Micro UA Comment Ur Microscopic Review Urine Culture Comments Urine Eosinophils Ur Random Sodium IgG IgA IgM [place]/Lambda Ratio Complement C3 Complement C4 [place] Light Chain Anal Lambda Light Chain Anal 02/28/18 02/28/18 02/28/18 14:20 16:54 21:15 WBC RBC Hgb Hct MCV MCH MCHC RDW Plt Count MPV Prelim Diff (Auto) Neut % (Auto) Lymph % (Auto) [place] % (Auto) Eos % (Auto) Baso % (Auto) Neut # (Auto) Lymph # (Auto) [place] # (Auto) Eos # (Auto) Baso # (Auto) WBC Differential Diff Scan Seg Neuts % (Manual) Band Neuts % (Manual) Lymphocytes % (Manual) Monocytes % (Manual) Eosinophils % (Manual) Abs Neuts (Manual) Differential Comment Platelet Estimate Platelet Morphology PT INR APTT 57.6 H D Puncture Site Patient Temperature VBG pH VBG pCO2 VBG pO2 VBG HCO3 VBG O2 Saturation VBG O2 Content VBG Base Excess VBG Carboxyhemoglobin VBG Methemoglobin Hemoglobin O2 Delivery Device Inspired O2 Critical Value Sodium Potassium Chloride Carbon Dioxide Anion Gap BUN Creatinine Estimated GFR POC Glucose 119 H Random Glucose Lactic Acid 1.2 Calcium Phosphorus Total Bilirubin AST ALT Alkaline Phosphatase Ammonia Troponin I Total Protein Albumin TSH Urine Color Urine Clarity Urine pH Ur Specific [place] Urine Protein Urine Glucose (UA) Urine Ketones Urine Occult Blood Urine Nitrate Urine Bilirubin Urine Urobilinogen Ur Leukocyte Esterase Urine RBC Urine WBC Amorphous Sediment Urine Bacteria Hyaline Casts Urine Mucus Micro UA Comment Ur Microscopic Review Urine Culture Comments Urine Eosinophils Ur Random Sodium IgG IgA IgM [place]/Lambda Ratio Complement C3 Complement C4 [place] Light Chain Anal Lambda Light Chain Anal 02/28/18 02/28/18 02/28/18 21:15 21:38 22:03 WBC RBC Hgb Hct MCV MCH MCHC RDW Plt Count MPV Prelim Diff (Auto) Neut % (Auto) Lymph % (Auto) [place] % (Auto) Eos % (Auto) Baso % (Auto) Neut # (Auto) Lymph # (Auto) [place] # (Auto) Eos # (Auto) Baso # (Auto) WBC Differential Diff Scan Seg Neuts % (Manual) Band Neuts % (Manual) Lymphocytes % (Manual) Monocytes % (Manual) Eosinophils % (Manual) Abs Neuts (Manual) Differential Comment Platelet Estimate Platelet Morphology PT INR APTT Puncture Site Patient Temperature VBG pH VBG pCO2 VBG pO2 VBG HCO3 VBG O2 Saturation VBG O2 Content VBG Base Excess VBG Carboxyhemoglobin VBG Methemoglobin Hemoglobin O2 Delivery Device Inspired O2 Critical Value Sodium Potassium Chloride Carbon Dioxide Anion Gap BUN Creatinine Estimated GFR POC Glucose 142 H Random Glucose Lactic Acid Calcium Phosphorus 8.4 H Total Bilirubin AST ALT Alkaline Phosphatase Ammonia Troponin I Total Protein Albumin TSH Urine Color Yellow Urine Clarity Hazy H Urine pH 5.0 Ur Specific [place] 1.016 Urine Protein 30 H Urine Glucose (UA) 500 or greater Urine Ketones Negative Urine Occult Blood Moderate H Urine Nitrate Negative Urine Bilirubin Negative Urine Urobilinogen Less than 2 Ur Leukocyte Esterase Negative Urine RBC 16 H Urine WBC 2 Amorphous Sediment Rare H Urine Bacteria Rare H Hyaline Casts 15 Urine Mucus Few H Micro UA Comment Culture not ind Ur Microscopic Review Not Reportable Urine Culture Comments Culture not ind Urine Eosinophils Ur Random Sodium IgG 444 L IgA 146 IgM 14 L [place]/Lambda Ratio 1.37 L Complement C3 112 Complement C4 [place] Light Chain Anal 107 L Lambda Light Chain Anal 78 L 02/28/18 02/28/18 03/01/18 22:03 22:03 04:14 WBC 6.7 RBC 3.23 L Hgb 11.4 L Hct 33.0 L MCV 102.3 H MCH 35.2 H MCHC 34.4 RDW 21.3 H Plt Count 76 L MPV 7.2 Prelim Diff (Auto) Slide review pending Neut % (Auto) 83.9 H Lymph % (Auto) 4.0 L Boyle % (Auto) 10.5 H Eos % (Auto) 1.3 Baso % (Auto) 0.3 Neut # (Auto) 5.6 Lymph # (Auto) 0.3 L [place] # (Auto) 0.7 Eos # (Auto) 0.1 Baso # (Auto) 0.0 WBC Differential . Diff Scan Auto diff confirmed Seg Neuts % (Manual) Band Neuts % (Manual) Lymphocytes % (Manual) Monocytes % (Manual) Eosinophils % (Manual) Abs Neuts (Manual) Differential Comment . Platelet Estimate Low L Platelet Morphology Normal PT INR APTT Puncture Site Patient Temperature VBG pH VBG pCO2 VBG pO2 VBG HCO3 VBG O2 Saturation VBG O2 Content VBG Base Excess VBG Carboxyhemoglobin VBG Methemoglobin Hemoglobin O2 Delivery Device Inspired O2 Critical Value Sodium Potassium Chloride Carbon Dioxide Anion Gap BUN Creatinine Estimated GFR POC Glucose Random Glucose Lactic Acid Calcium Phosphorus Total Bilirubin AST ALT Alkaline Phosphatase Ammonia Troponin I Total Protein Albumin TSH Urine Color Urine Clarity Urine pH Ur Specific [place] Urine Protein Urine Glucose (UA) Urine Ketones Urine Occult Blood Urine Nitrate Urine Bilirubin Urine Urobilinogen Ur Leukocyte Esterase Urine RBC Urine WBC Amorphous Sediment Urine Bacteria Hyaline Casts Urine Mucus Micro UA Comment Ur Microscopic Review Urine Culture Comments Urine Eosinophils None seen Ur Random Sodium 16 IgG IgA IgM [place]/Lambda Ratio Complement C3 Complement C4 [place] Light Chain Anal Lambda Light Chain Anal 03/01/18 03/01/18 03/01/18 04:14 04:14 08:05 WBC RBC Hgb Hct MCV MCH MCHC RDW Plt Count MPV Prelim Diff (Auto) Neut % (Auto) Lymph % (Auto) [place] % (Auto) Eos % (Auto) Baso % (Auto) Neut # (Auto) Lymph # (Auto) [place] # (Auto) Eos # (Auto) Baso # (Auto) WBC Differential Diff Scan Seg Neuts % (Manual) Band Neuts % (Manual) Lymphocytes % (Manual) Monocytes % (Manual) Eosinophils % (Manual) Abs Neuts (Manual) Differential Comment Platelet Estimate Platelet Morphology PT INR APTT 57.3 H Puncture Site Patient Temperature VBG pH VBG pCO2 VBG pO2 VBG HCO3 VBG O2 Saturation VBG O2 Content VBG Base Excess VBG Carboxyhemoglobin VBG Methemoglobin Hemoglobin O2 Delivery Device Inspired O2 Critical Value Sodium 134 L Potassium 4.3 Chloride 96 L Carbon Dioxide 20.1 L Anion Gap 18 H BUN 81 H Creatinine 7.12 H Estimated GFR 8 L POC Glucose 185 H Random Glucose 149 H Lactic Acid Calcium 7.9 L Phosphorus Total Bilirubin AST ALT Alkaline Phosphatase Ammonia Troponin I Total Protein Albumin TSH Urine Color Urine Clarity Urine pH Ur Specific [place] Urine Protein Urine Glucose (UA) Urine Ketones Urine Occult Blood Urine Nitrate Urine Bilirubin Urine Urobilinogen Ur Leukocyte Esterase Urine RBC Urine WBC Amorphous Sediment Urine Bacteria Hyaline Casts Urine Mucus Micro UA Comment Ur Microscopic Review Urine Culture Comments Urine Eosinophils Ur Random Sodium IgG IgA IgM [place]/Lambda Ratio Complement C3 Complement C4 31 [place] Light Chain Anal Lambda Light Chain Anal - Imaging Impressions Abdomen/Bladder Ultrasound 02/28/18 00:00 CONCLUSION: 1. Concerning findings with respect to the right kidney with asymmetric increased echogenicity of the upper pole as compared to the lower pole and decreased flow identified within the lower pole. Given the findings of PE on prior CT this may reflect sequelae of an embolus to the right kidney. Venous Doppler Study 02/28/18 10:01 CONCLUSION: 1. Extensive left lower extremity deep venous thrombosis; was seen on 2017. Head CT 02/28/18 10:03 CONCLUSION: 1. Negative for acute process . Lumbar Spine CT 02/28/18 11:33 CONCLUSION: 1. Degenerative disc disease asymmetric to left at L5-S1 with prominent osteophytic spur impinging on the traversing left S1 nerve root. Moderate bilateral foraminal narrowing at L5-S1. Chest X-Ray 02/28/18 13:30 CONCLUSION: Negative for acute process Abdomen/Pelvis CT 03/01/18 00:00 CONCLUSION: 1. Ill-defined and partially nodular opacities about the posterior peritoneal margin and in the anterior peritoneum or omentum. This nonspecific in appearance , but is a new finding compared to prior CT scans and suggests possible peritoneal carcinomatosis. Recommend further characterization with PET/CT scan. 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 - Pt was brought into the ED at [facility] on 02/28/18 with generalized weakness after being found down on the floor by his land lord. - He was notably hypotensive at admission and found to be in acute renal failure with Cr 6.06/BUN 68. His previous Cr was 0.76 in 01/2018. - The etiology for his ARF is unclear, possible related to volume depletion vs. hypotension/underperfusion vs. possible infection vs. other. Pt denies any NSAID use and denies any recent N/V/D. - CT a/p 02/28: 1. Ill-defined and partially nodular opacities about the posterior peritoneal margin and in the anterior peritoneum or omentum. This nonspecific in appearance , but is a new finding compared to prior CT scans and suggests possible peritoneal carcinomatosis. Recommend further characterization with PET/CT scan. - Renal u/s 02/28: CONCLUSION: 1. Concerning findings with respect to the right kidney with asymmetric increased echogenicity of the upper pole as compared to the lower pole and decreased flow identified within the lower pole. Given the findings of PE on prior CT this may reflect sequelae of an embolus to the right kidney. - cont ivf - renal following -pt may need HD - Avoid nephrotoxic medications - Hold THERON LLE DVT Bilateral PE - Pt has been without Lovenox for the last week - He had a repeat LLE US at admission which noted extensive left lower extremity deep venous thrombosis which was seen previously on 01/21/2018. - Due to his DOMINGUEZ we cannot resume Lovenox at this time -cont heparin gtt. -PT evaluation. HTN Hypotension - Hold home bp meds - Give IVF - his pain meds lowered due to hypotension. Adenocarcinoma of the rectum/anal canal dx 06/2017 with liver metastasis - Pt follows with Dr. Hernandez - He has been on Xeloda, this will need to be held due to DOMINGUEZ - Pt reportedly had an outpt PET scan but I do not have the results of this. - During his last admission he had Rectal EUS (01/28/18) --> Small rectal polyp. Anorectal mass infiltrating into the pericolonic tissue is noted on the EUS. A mildly hypoechoic mass measuring at least 1 x 2.3 cm with no regional lymph nodes not obvious vascular invasion. The staging for this is T3 N0. -His CT yesterday questions new peritoneal carcinomatosis. Diabetes Mellitus - Hold outpt medications - NovoLog SSI
[2018-03-01] MEDS ORDERED: Acetaminophen 325 MG Tablet PO PRN (11:32)
[2018-03-01] MEDS ORDERED: Gelatin 12 MM/7 MM Topical Foam TOPICAL PRN (11:32)
[2018-03-01] MEDS ORDERED: Heparin 10,000 UNITS/10 ML Vial (for IV use) OTHER PRN (11:32)
[2018-03-01] MEDS ORDERED: Sod Chloride 0.9% Inj 1,000 ML OTHER PRN ×2 (11:32)
[2018-03-01] MEDS ORDERED: Albumin Human 25% Inj 100 ML IV.SIG PRN (11:32)
[2018-03-01] MEDS ORDERED: Sod Chloride 0.9% Inj 1,000 ML IV.CONT PRN (11:32)
--- NOTE | 2018-03-01 11:39 | P.PNNP ---
Subjective Interval history: Exam he is tired and weak, he is confused as well renal failure is worse Physical Exam Vital signs: Vital Signs 02/28/18 12:08 02/28/18 13:18 02/28/18 15:46 Temperature Pulse Rate 78 91 H 104 H Respiratory Rate 17 17 19 Blood Pressure 84/50 L 109/66 120/72 Pulse Oximetry 100 97 02/28/18 16:06 03/01/18 00:00 03/01/18 01:40 Temperature 98.6 F Pulse Rate 71 102 H Respiratory Rate 17 18 Blood Pressure 121/81 122/63 Pulse Oximetry 100 98 99 03/01/18 03:00 03/01/18 03:05 03/01/18 04:00 Temperature 98.4 F 98.4 F Pulse Rate 98 H 98 H 98 H Respiratory Rate 16 16 Blood Pressure 92/51 L 92/51 L Pulse Oximetry 97 97 03/01/18 08:00 03/01/18 08:32 Temperature 97.9 F Pulse Rate 99 H Respiratory Rate 16 Blood Pressure 118/63 Pulse Oximetry 96 95 Intake & Output 02/28/18 03/01/18 03/01/18 18:59 06:59 18:59 Intake Total 1999 1240 / 1240 250 / 250 Output Total 0 / 0 Balance 1999 1240 / 1240 250 / 250 Weight 99.79 kg 190 kg Intake: IV 1999 1000 / 1000 250 / 250 Heparin/D5W 25,000 U/250 mL 25, 250 / 250 000 unit In 250 ml @ 18 UNITS/ KG/HR 17.962 mls/hr IV.CONT TITRATE PRN Rx#:[id number] NS Inj 1,000 ML @ 100 mls/hr IV 1000 / 1000 .CONT .Q10H JAZMINE Rx#:[id number] NS Inj 1,000 ML @ Wide Open IV. 1999 SIG BOLUS JAZMINE Rx#:[id number] Oral 240 / 240 Output: Urine 0 / 0 - Constitutional no acute distress - Routine HEENT Exam Head: Present: normocephalic - Routine Respiratory Exam Present: decreased breath sounds - Routine Cardiovascular Exam Present: RRR - Routine Abdominal Exam Present: soft, normoactive bowel sounds - Routine Extremities Exam Present: edema Assessment and Plan - Assessment (1) DVT (deep venous thrombosis) Code(s): I82.409 - Acute embolism and thrombosis of unspecified deep veins of unspecified lower extremity Status: Acute (2) Acute pulmonary embolism Code(s): I26.99 - Other pulmonary embolism without acute cor pulmonale Status : Acute (3) Rectal cancer metastasized to liver Code(s): C20 - Malignant neoplasm of rectum; C78.7 - Secondary malignant neoplasm of liver and intrahepatic bile duct Status: Acute (4) DM type 2 (diabetes mellitus, type 2) Code(s): E11.9 - Type 2 diabetes mellitus without complications Status: Chronic Qualifiers: Diabetes mellitus termite control 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 insulin use: without termite control technician use Diabetes mellitus complication status: without complication Qualified Code(s): E11.9 - Type 2 diabetes mellitus without complications (5) Acute renal failure (ARF) Code(s): N17.9 - Acute kidney failure, unspecified Status: Acute - Plan Patient patient is on Xeloda, he could be complication of his cancer or chemotherapeutic agent, acute renal failure appears to be worsening, his urine output has declined, Check KINJAL, serum complement Patient is on heparin Urine output is remains poor Patient may likely need hemodialysis port placement CT scan showed peritoneal carcinomatosis Acute renal failure appears to be complication of his advanced cancer state He has poor urine output and I explained he will need hemodialysis I discussed with interventional radiology and staff nurse, plan is to hold heparin send him for Vas-Cath Hemodialysis can be arranged after that Overall prognosis remains poor
[2018-03-01 15:40] LABS: Hepatitis A IgM Antibody Nonreactive (Nonreactive)
[2018-03-01 15:41] LABS: Hepatitits B Surface Antigen Nonreactive (Nonreactive)
[2018-03-01] MEDS ORDERED: *Heparin 10,000 UNITS/10 ML Vial Periprocedural ONLY ONE (17:09)
[2018-03-01] MEDS ORDERED: fentaNYL Citrate Inj 250 MCG/5 ML Ampul ONE (17:10)
--- NOTE | 2018-03-01 18:01 | P.RAD ---
Post Procedure Progress Note - Pre Procedure Diagnosis (1) Acute renal failure (ARF) - Post Procedure Diagnosis (1) Acute renal failure (ARF) - Procedure Information Procedure Date: 03/01/18 Supervising Radiologist: Elvin Angel MD Anesthesia: Local, Analgesia - Plan of Activity Patient to Unit: Critical Care Patient Condition: Good See PACS Report for procedural detail/treatment. [facility] Radiology Procedures left Internal Jugular Hemodialysis Catheter Non-Tunneled Placement Turkish: 14 PICC Line Length (cm): 24 - Additional Detail Findings: Right IJ appears occluded. Diminutive right external jugular
--- NOTE | 2018-03-01 18:44 | IR ---
EXAM DATE: 03/01/2018 6:17 PM EDT AGE/SEX: 57 years / Male INDICATIONS: Patient presents with stage IV rectal adenocarcinoma and in acute renal failure in need of vas cath. CLINICAL DATA: This is the patient's initial encounter. Patient reports that signs and symptoms have been present for 1 day and indicates a pain score of 0/10. MEDICAL/SURGICAL HISTORY: Carcinoma, rectal. Renal failure, acute. None. COMPARISON: No prior exams available for comparison. FLUORO TIME (min): 2.4 IMAGE SERIES: 2 ACCESS SITE: Left internal jugular vein SEDATION TIME (min): 30 MEDICATION(S): 25mcg fentanyl (Sublimaze) IV DEVICE(S): 14 Moroc[place] double lumen 24cm Schon catheter . . PROCEDURE : 1. Ultrasound guided venipuncture. 2. Fluoroscopic guidance. 3. Central line placement. The risks, benefits and alternatives to the procedure were explained and verbal and written consent w as obtained. The site was prepped in sterile fashion. Full sterile technique was used, including ca p, mask, sterile gloves and gown and a large sterile sheet. Hand hygiene and 2% chlorhexidine prep w as utilized per protocol for cutaneous antisepsis with appropriate dry time for site. Sterile gel an d sterile probe cover were utilized for ultrasound guidance. The skin and subcutaneous tissues were infiltrated with local anesthetic solution. We initially star sada on the right. Ultrasound evaluation showed a very diminutive venous structure which did not compl etely follow the internal carotid and therefore, probably representing the external jugular. The inte rnal jugular may be occluded as the patient has a right IJ Ftrfuz-r-[id number] catheter. Therefore, the lef t neck was prepped and draped in the usual sterile fashion. A suitable site above the vein was selected with ultrasound and fluoroscopic guidance. A small incis ion was made. The vein was accessed under direct ultrasound visualization using the micropuncture te chnique. The micropuncture set was exchanged for a 0.035 wire. The tract was dilated. The catheter was advanced into position under direct fluoroscopic visualization, and was advanced with the tip at the junction of the superior vena cava and rt atrium. The catheter was fixed in place with suture a nd a sterile dressing was applied. The patient tolerated the procedure well and there were no complications. CONCLUSION: 1. Uncomplicated line placement as above. 2. I believe the right IJ is either quite diminutive or occluded. The small vessel identified interm ittently adjacent to the carotid may represent the tortuous external jugular. Electronically signed by: Elvin Angel MD 03/01/2018 6:43 PM EDT
[2018-03-01] MEDS: Gabapentin 100 MG Capsule PO SCH (21:12)
[2018-03-02] MEDS: Sod Chloride 0.9% Inj 1,000 ML IV.CONT SCH ×3 (04:05→20:23)
[2018-03-02] MEDS: Morphine Inj 4 MG/ML Vial IV.PUSH PRN ×2 (05:28→10:23)
[2018-03-02 05:41] LABS: Hematocrit 30.5 % (39.0-51.0); Hemoglobin 10.8 gm/dL (13.0-17.0); Mean Corpuscular HGB Conc 35.6 % (32.0-36.0); Mean Corpuscular Hemoglobin 35.8 pg (27.0-34.0); Mean Corpuscular Volume 100.5 fL (80.0-100.0); Platelet Count 105 th/mm3 (150-450); Red Blood Count 3.03 mil/mm3 (4.50-5.90); Red Cell Distribution Width 20.9 % (11.6-17.2); White Blood Count 7.9 th/mm3 (4.0-11.0)
[2018-03-02 06:19] LABS: Calcium 7.9 mg/dL (8.5-10.1); Carbon Dioxide 19.1 meq/L (21.0-32.0); Potassium 4.1 meq/L (3.5-5.1)
[2018-03-02] MEDS: Insulin NovoLOG Aspart Correctional Sugar Inj SQ SCH ×4 (09:04→22:25)
--- NOTE | 2018-03-02 09:20 | P.PNIM ---
Subjective Interval history: pt currently oriented but nursing reports fluctuating degrees of orientation and some mild delirium. Physical Exam Vital signs: Vital Signs 03/01/18 10:00 03/01/18 11:00 03/01/18 12:00 Temperature 98 F Pulse Rate 104 H 96 H 92 H Respiratory Rate 17 Blood Pressure 115/63 Pulse Oximetry 98 03/01/18 12:52 03/01/18 13:00 03/01/18 14:00 Temperature Pulse Rate 94 H 94 H Respiratory Rate 16 Blood Pressure Pulse Oximetry 03/01/18 15:00 03/01/18 15:49 03/01/18 16:00 Temperature 98.1 F Pulse Rate 96 H 95 H 95 H Respiratory Rate 18 Blood Pressure 107/58 L Pulse Oximetry 97 03/01/18 17:00 03/01/18 18:00 03/01/18 20:00 Temperature 98.7 F Pulse Rate 95 H 95 H 75 Respiratory Rate 20 Blood Pressure 105/63 Pulse Oximetry 100 03/01/18 20:02 03/01/18 21:00 03/01/18 22:00 Temperature Pulse Rate 102 H 110 H Respiratory Rate Blood Pressure Pulse Oximetry 95 03/01/18 23:00 03/02/18 00:00 03/02/18 01:00 Temperature 98.7 F Pulse Rate 96 H 95 H 97 H Respiratory Rate 20 Blood Pressure 97/53 L Pulse Oximetry 96 03/02/18 01:09 03/02/18 02:00 03/02/18 03:00 Temperature Pulse Rate 94 H 92 H Respiratory Rate 18 Blood Pressure Pulse Oximetry 03/02/18 04:00 03/02/18 05:00 03/02/18 05:59 Temperature 98.6 F Pulse Rate 92 H 92 H 96 H Respiratory Rate 20 Blood Pressure 87/52 L Pulse Oximetry 97 03/02/18 07:00 03/02/18 08:00 03/02/18 08:30 Temperature 97.9 F Pulse Rate 93 H 93 H Respiratory Rate 16 Blood Pressure 83/45 L Pulse Oximetry 95 95 93 L 03/02/18 09:00 Temperature Pulse Rate 90 Respiratory Rate Blood Pressure Pulse Oximetry Intake & Output 03/01/18 03/02/18 03/02/18 18:59 06:59 18:59 Intake Total 1969 2850 / 2850 Output Total 0 / 0 1500 / 1500 Balance 1969 1350 / 1350 Weight 113.5 kg Intake: IV 1250 / 1250 1650 / 1650 Heparin/D5W 25,000 U/250 mL 25, 250 / 250 150 / 150 000 unit In 250 ml @ 18 UNITS/ KG/HR 17.962 mls/hr IV.CONT TITRATE PRN Rx#:[id number] NS Inj 1,000 ML @ 100 mls/hr IV 1000 / 1000 1500 / 1500 .CONT .Q10H JAZMINE Rx#:[id number] Oral 720 / 720 1200 / 1200 Output: Urine 0 / 0 Hemodialysis Amount 1500 / 1500 currently oriented/following commands. heart reg lung cta abd s/nt ext left leg swelling. Results - Labs CBC & Chem 7: 03/02/18 05:00 03/02/18 05:00 Laboratory Results - last 24 hr 03/01/18 03/01/18 03/01/18 11:52 13:53 16:35 WBC RBC Hgb Hct MCV MCH MCHC RDW Plt Count MPV APTT Sodium Potassium Chloride Carbon Dioxide Anion Gap BUN Creatinine Estimated GFR POC Glucose 172 H 184 H Random Glucose Calcium Hepatitis A IgM Ab Nonreactive Hep Bs Antigen Nonreactive Hep B Core IgM Ab Nonreactive Hep C IgG Ab Nonreactive 03/01/18 03/02/18 03/02/18 20:52 02:55 05:00 WBC RBC Hgb Hct MCV MCH MCHC RDW Plt Count MPV APTT 49.2 H Sodium 130 L Potassium 4.1 Chloride 96 L Carbon Dioxide 19.1 L Anion Gap 15 BUN 67 H Creatinine 6.08 H Estimated GFR 10 L POC Glucose 170 H Random Glucose 139 H Calcium 7.9 L Hepatitis A IgM Ab Hep Bs Antigen Hep B Core IgM Ab Hep C IgG Ab 03/02/18 03/02/18 05:00 07:27 WBC 7.9 RBC 3.03 L Hgb 10.8 L Hct 30.5 L MCV 100.5 H MCH 35.8 H MCHC 35.6 RDW 20.9 H Plt Count 105 L D MPV 7.0 APTT Sodium Potassium Chloride Carbon Dioxide Anion Gap BUN Creatinine Estimated GFR POC Glucose 170 H Random Glucose Calcium Hepatitis A IgM Ab Hep Bs Antigen Hep B Core IgM Ab Hep C IgG Ab Microbiology 02/28/18 14:50 Blood - Peripheral Aerobic Blood Culture - Preliminary No growth in 1 day 02/28/18 14:50 Blood - Peripheral Anaerobic Blood Culture - Preliminary No growth in 1 day 02/28/18 16:55 Blood - Peripheral Aerobic Blood Culture - Preliminary No growth in 1 day 02/28/18 16:55 Blood - Peripheral Anaerobic Blood Culture - Preliminary No growth in 1 day - Imaging Impressions Catheter Placement 03/01/18 00:00 CONCLUSION: 1. Uncomplicated line placement as above. 2. I believe the right IJ is either quite diminutive or occluded. The small vessel identified intermittently adjacent to the carotid may represent the tortuous external jugular. 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 - [place] [facility] [place] with generalized weakness after being found down on the floor by his land lord. - He was notably hypotensive at admission and found to be in acute renal failure with Cr 6.06/BUN 68. His previous Cr was 0.76 in 01/2018. - The etiology for his ARF is unclear, possible related to volume depletion vs. hypotension/underperfusion vs. possible infection vs. other. Pt denies any NSAID use and denies any recent N/V/D. - CT a/p 02/28: 1. Ill-defined and partially nodular opacities about the posterior peritoneal margin and in the anterior peritoneum or omentum. This nonspecific in appearance , but is a new finding compared to prior CT scans and suggests possible peritoneal carcinomatosis. Recommend further characterization with PET/CT scan. - Renal u/s 02/28: CONCLUSION: 1. Concerning findings with respect to the right kidney with asymmetric increased echogenicity of the upper pole as compared to the lower pole and decreased flow identified within the lower pole. Given the findings of PE on prior CT this may reflect sequelae of an embolus to the right kidney. -Vascath placed on 03/01 and HD initiated -Pt with lower bp's today. MAP over 60 currently. bolus prn - cont ivf - renal following - Avoid nephrotoxic medications - Hold THERON LLE DVT Bilateral PE - Pt has been without Lovenox for the last week - He had a repeat LLE US at admission which noted extensive left lower extremity deep venous thrombosis which was seen previously on 01/21/2018. - Due to his DOMINGUEZ we cannot resume Lovenox at this time -cont heparin gtt. -PT evaluation. HTN Hypotension - Hold home bp meds - Give IVF - his pain meds lowered due to hypotension. see above Adenocarcinoma of the rectum/anal canal dx 06/2017 with liver metastasis - Pt follows with Dr. Hernandez - He has been on Xeloda, this will need to be held due to DOMINGUEZ - Pt reportedly had an outpt PET scan but I do not have the results of this. - During his last admission he had Rectal EUS (01/28/18) --> Small rectal polyp. Anorectal mass infiltrating into the pericolonic tissue is noted on the EUS. A mildly hypoechoic mass measuring at least 1 x 2.3 cm with no regional lymph nodes not obvious vascular invasion. The staging for this is T3 N0. -His CT questions new peritoneal carcinomatosis. will reconsult his oncologist in AM. Diabetes Mellitus - Hold outpt medications - NovoLog SSI
[2018-03-02] MEDS: Heparin Drip 25,000 UNIT/250 ML BAG IV.CONT PRN (10:27)
--- NOTE | 2018-03-02 12:39 | ECG ---
Date Performed: 02/28/2018 Time Performed: 11:47:52 PTAGE: 57 years EKG: Sinus rhythm RIGHT BUNDLE BRANCH BLOCK ABNORMAL ECG PREVIOUS TRACING : 01/21/2018 18.35 Since the previous tracing, no significant change noted DOCTOR: Yusef Marvin Interpretating Date/Time 03/02/2018 12:36:06
--- NOTE | 2018-03-02 14:10 | P.PNNP ---
Subjective Interval history: Patient is confused complaining of epigastric pain, left leg pain Physical Exam Vital signs: Vital Signs 03/01/18 15:00 03/01/18 15:49 03/01/18 16:00 Temperature 98.1 F Pulse Rate 96 H 95 H 95 H Respiratory Rate 18 Blood Pressure 107/58 L Pulse Oximetry 97 03/01/18 17:00 03/01/18 18:00 03/01/18 20:00 Temperature 98.7 F Pulse Rate 95 H 95 H 75 Respiratory Rate 20 Blood Pressure 105/63 Pulse Oximetry 100 03/01/18 20:02 03/01/18 21:00 03/01/18 22:00 Temperature Pulse Rate 102 H 110 H Respiratory Rate Blood Pressure Pulse Oximetry 95 03/01/18 23:00 03/02/18 00:00 03/02/18 01:00 Temperature 98.7 F Pulse Rate 96 H 95 H 97 H Respiratory Rate 20 Blood Pressure 97/53 L Pulse Oximetry 96 03/02/18 01:09 03/02/18 02:00 03/02/18 03:00 Temperature Pulse Rate 94 H 92 H Respiratory Rate 18 Blood Pressure Pulse Oximetry 03/02/18 04:00 03/02/18 05:00 03/02/18 05:59 Temperature 98.6 F Pulse Rate 92 H 92 H 96 H Respiratory Rate 20 Blood Pressure 87/52 L Pulse Oximetry 97 03/02/18 07:00 03/02/18 08:00 03/02/18 08:30 Temperature 97.9 F Pulse Rate 93 H 93 H Respiratory Rate 16 Blood Pressure 83/45 L Pulse Oximetry 95 95 93 L 03/02/18 09:00 03/02/18 10:00 03/02/18 11:00 Temperature 98.1 F Pulse Rate 90 89 85 Respiratory Rate 17 Blood Pressure 91/54 L Pulse Oximetry 98 03/02/18 12:00 03/02/18 13:00 03/02/18 13:01 Temperature Pulse Rate 92 H 93 H Respiratory Rate 16 Blood Pressure Pulse Oximetry Intake & Output 03/01/18 03/02/18 03/02/18 18:59 06:59 18:59 Intake Total 1969 2850 / 2850 1250 / 1250 Output Total 0 / 0 1500 / 1500 Balance 1969 1350 / 1350 1250 / 1250 Weight 113.5 kg Intake: IV 1250 / 1250 1650 / 1650 1250 / 1250 Heparin/D5W 25,000 U/250 mL 25, 250 / 250 150 / 150 250 / 250 000 unit In 250 ml @ 18 UNITS/ KG/HR 17.962 mls/hr IV.CONT TITRATE PRN Rx#:[id number] NS Inj 1,000 ML @ 100 mls/hr IV 1000 / 1000 1500 / 1500 1000 / 1000 .CONT .Q10H JAZMINE Rx#:[id number] Oral 720 / 720 1200 / 1200 Output: Urine 0 / 0 Hemodialysis Amount 1500 / 1500 - Constitutional no acute distress - Routine HEENT Exam Head: Present: normocephalic - Routine Neck Exam Present: supple - Routine Respiratory Exam Present: CTA bilaterally - Routine Cardiovascular Exam Present: S1, S2 - Routine Abdominal Exam Present: soft, distended - Routine Extremities Exam Present: edema Assessment and Plan - Assessment (1) DVT (deep venous thrombosis) Code(s): I82.409 - Acute embolism and thrombosis of unspecified deep veins of unspecified lower extremity Status: Acute (2) Acute pulmonary embolism Code(s): I26.99 - Other pulmonary embolism without acute cor pulmonale Status : Acute (3) Rectal cancer metastasized to liver Code(s): C20 - Malignant neoplasm of rectum; C78.7 - Secondary malignant neoplasm of liver and intrahepatic bile duct Status: Acute (4) DM type 2 (diabetes mellitus, type 2) Code(s): E11.9 - Type 2 diabetes mellitus without complications Status: Chronic Qualifiers: Diabetes mellitus fast food server insulin use: without care home use Diabetes mellitus complication status: without complication Qualified Code(s): E11.9 - Type 2 diabetes mellitus without complications (5) Acute renal failure (ARF) Code(s): N17.9 - Acute kidney failure, unspecified Status: Acute - Plan Patient patient is on Xeloda, he could be complication of his cancer or chemotherapeutic agent, acute renal failure appears to be worsening, his urine output has declined, Check KINJAL, serum complement Patient is on heparin Urine output is slightly better Patient started hemodialysis yesterday Etiology of acute renal failure not certain could be medication, cancer, low blood pressure, tumor lysis?, Thromboembolic Get renal scan to check perfusion and function CT scan showed peritoneal carcinomatosis Acute renal failure appears to be complication of his advanced cancer state He states that oncology told him that he is cancer free We need input from oncology Eb added Change Protonix to IV Follow BMP next dialysis tomorrow
[2018-03-02] MEDS: Pantoprazole Inj 40 MG Vial IV.PUSH SCH (16:11)
[2018-03-02] MEDS: Calcium Acetate 667 MG Capsule PO SCH (17:06)
[2018-03-02 18:57] LABS: Creatinine,Urine Random 51 mg/dL (27-300)
[2018-03-02] MEDS: Gabapentin 100 MG Capsule PO SCH (20:18)
[2018-03-03] MEDS: Sod Chloride 0.9% Inj 1,000 ML IV.CONT SCH ×3 (00:38→11:55)
[2018-03-03] MEDS: Heparin Drip 25,000 UNIT/250 ML BAG IV.CONT PRN (00:40)
[2018-03-03] MEDS: Morphine Inj 4 MG/ML Vial IV.PUSH PRN ×2 (02:55→16:48)
[2018-03-03] MEDS: Pantoprazole Inj 40 MG Vial IV.PUSH SCH ×2 (03:47→15:19)
[2018-03-03 06:20] LABS: Baso % (Auto) 0.5 % (0.0-2.0); Eos # (Auto) 0.2 th/mm3 (0.0-0.4); Eos % (Auto) 2.7 % (0.0-4.0); Hematocrit 27.4 % (39.0-51.0); Hemoglobin 9.9 gm/dL (13.0-17.0); Lymph # (Auto) 0.2 th/mm3 (1.0-4.8); Lymph % (Auto) 3.2 % (9.0-44.0); Mean Corpuscular Hemoglobin 36.3 pg (27.0-34.0); Mean Corpuscular Volume 100.8 fL (80.0-100.0); Mono # (Auto) 0.7 th/mm3 (0.0-0.9); Mono % (Auto) 9.9 % (0.0-8.0); Neut # (Auto) 5.9 th/mm3 (1.8-7.7); Neut % (Auto) 83.7 % (16.0-70.0); Platelet Count 112 th/mm3 (150-450); Red Blood Count 2.72 mil/mm3 (4.50-5.90); Red Cell Distribution Width 20.7 % (11.6-17.2); White Blood Count 7.1 th/mm3 (4.0-11.0)
[2018-03-03 06:37] LABS: Calcium 7.9 mg/dL (8.5-10.1); Carbon Dioxide 22.3 meq/L (21.0-32.0); Phosphorus 5.6 mg/dL (2.5-4.9); Potassium 4.2 meq/L (3.5-5.1); Uric Acid 7.2 mg/dl (2.6-7.2)
[2018-03-03] MEDS: Insulin NovoLOG Aspart Correctional Sugar Inj SQ SCH ×4 (08:23→22:03)
[2018-03-03] MEDS: Calcium Acetate 667 MG Capsule PO SCH ×3 (08:24→18:46)
--- NOTE | 2018-03-03 11:59 | P.PNIM ---
Subjective Interval history: Pt confused today Mother at bedside. He had HD this morning. Physical Exam Vital signs: Vital Signs 03/02/18 12:00 03/02/18 13:00 03/02/18 13:01 Temperature Pulse Rate 92 H 93 H Respiratory Rate 16 Blood Pressure Pulse Oximetry 03/02/18 14:00 03/02/18 14:37 03/02/18 14:54 Temperature 98 F Pulse Rate 89 92 H 88 Respiratory Rate 16 Blood Pressure 87/54 L Pulse Oximetry 97 03/02/18 15:40 03/02/18 16:30 03/02/18 17:20 Temperature Pulse Rate 88 91 H 90 Respiratory Rate Blood Pressure Pulse Oximetry 03/02/18 19:00 03/02/18 20:00 03/02/18 21:00 Temperature 98.4 F Pulse Rate 83 96 H 94 H Respiratory Rate 20 Blood Pressure 103/61 Pulse Oximetry 98 98 03/02/18 22:00 03/02/18 22:47 03/02/18 23:00 Temperature 98.6 F Pulse Rate 94 H 90 84 Respiratory Rate 20 Blood Pressure 84/50 L Pulse Oximetry 97 03/03/18 00:00 03/03/18 01:00 03/03/18 02:00 Temperature Pulse Rate 92 H 88 92 H Respiratory Rate Blood Pressure Pulse Oximetry 03/03/18 03:00 03/03/18 04:00 03/03/18 05:00 Temperature 98.8 F Pulse Rate 97 H 75 75 Respiratory Rate 20 18 Blood Pressure 83/46 L Pulse Oximetry 95 03/03/18 06:00 03/03/18 07:00 03/03/18 08:00 Temperature 98.7 F Pulse Rate 94 H 97 H 112 H Respiratory Rate 17 Blood Pressure 109/65 Pulse Oximetry 97 96 03/03/18 09:00 03/03/18 10:00 03/03/18 11:00 Temperature Pulse Rate 102 H 104 H 101 H Respiratory Rate Blood Pressure Pulse Oximetry Intake & Output 03/02/18 03/03/18 03/03/18 18:59 06:59 18:59 Intake Total 2049 / 2050 2210 / 2210 1000 / 1000 Output Total 425 / 425 1999 / 1999 Balance 1625 / 1625 210 / 210 1000 / 1000 Weight 114.5 kg Intake: IV 1250 / 1250 1250 / 1250 1000 / 1000 Heparin/D5W 25,000 U/250 mL 25, 250 / 250 250 / 250 000 unit In 250 ml @ 18 UNITS/ KG/HR 17.962 mls/hr IV.CONT TITRATE PRN Rx#:[id number] NS Inj 1,000 ML @ 100 mls/hr IV 1000 / 1000 1000 / 1000 1000 / 1000 .CONT .Q10H JAZMINE Rx#:[id number] Oral 800 / 800 960 / 960 Output: Urine 425 / 425 1999 / 1999 Other: # Voids 1 Date of Last Bowel Movement 02/27/18 Narrative: General: NAD, Awake, alert, confused Chest: CTA Cardiac: Regular Abd: +BS, soft ND/NT Ext: mild bilateral LE edema Results - Labs CBC & Chem 7: 03/04/18 08:09 03/04/18 08:09 Laboratory Results - last 24 hr 03/02/18 03/02/18 03/02/18 11:57 16:41 17:40 WBC RBC Hgb Hct MCV MCH MCHC RDW Plt Count MPV Prelim Diff (Auto) Neut % (Auto) Lymph % (Auto) [place] % (Auto) Eos % (Auto) Baso % (Auto) Neut # (Auto) Lymph # (Auto) [place] # (Auto) Eos # (Auto) Baso # (Auto) WBC Differential Diff Scan Differential Comment APTT Sodium Potassium Chloride Carbon Dioxide Anion Gap BUN Creatinine Estimated GFR POC Glucose 188 H 193 H Random Glucose Uric Acid Calcium Phosphorus Ur Random Creatinine 51 Ur Random Sodium 27 03/02/18 03/03/18 03/03/18 21:29 06:00 06:00 WBC 7.1 RBC 2.72 L Hgb 9.9 L Hct 27.4 L MCV 100.8 H MCH 36.3 H MCHC 36.0 RDW 20.7 H Plt Count 112 L MPV 7.0 Prelim Diff (Auto) Slide review pending Neut % (Auto) 83.7 H Lymph % (Auto) 3.2 L [place] % (Auto) 9.9 H Eos % (Auto) 2.7 Baso % (Auto) 0.5 Neut # (Auto) 5.9 Lymph # (Auto) 0.2 L [place] # (Auto) 0.7 Eos # (Auto) 0.2 Baso # (Auto) 0.0 WBC Differential . Diff Scan Auto diff confirmed Differential Comment . APTT 55.5 H D Sodium Potassium Chloride Carbon Dioxide Anion Gap BUN Creatinine Estimated GFR POC Glucose 200 H Random Glucose Uric Acid Calcium Phosphorus Ur Random Creatinine Ur Random Sodium 03/03/18 03/03/18 06:00 08:17 WBC RBC Hgb Hct MCV MCH MCHC RDW Plt Count MPV Prelim Diff (Auto) Neut % (Auto) Lymph % (Auto) [place] % (Auto) Eos % (Auto) Baso % (Auto) Neut # (Auto) Lymph # (Auto) [place] # (Auto) Eos # (Auto) Baso # (Auto) WBC Differential Diff Scan Differential Comment APTT Sodium 131 L Potassium 4.2 Chloride 98 Carbon Dioxide 22.3 Anion Gap 11 BUN 70 H Creatinine 4.63 H Estimated GFR 13 L POC Glucose 166 H Random Glucose 129 H Uric Acid 7.2 Calcium 7.9 L Phosphorus 5.6 H Ur Random Creatinine Ur Random Sodium Microbiology 02/28/18 14:50 Blood - Peripheral Aerobic Blood Culture - Preliminary No growth in 3 days 02/28/18 14:50 Blood - Peripheral Anaerobic Blood Culture - Preliminary No growth in 3 days 02/28/18 16:55 Blood - Peripheral Aerobic Blood Culture - Preliminary No growth in 3 days 02/28/18 16:55 Blood - Peripheral Anaerobic Blood Culture - Preliminary No growth in 3 days - Imaging Abdomen/Bladder Ultrasound 02/28/18 00:00 CONCLUSION: 1. Concerning findings with respect to the right kidney with asymmetric increased echogenicity of the upper pole as compared to the lower pole and decreased flow identified within the lower pole. Given the findings of PE on prior CT this may reflect sequelae of an embolus to the right kidney. Venous Doppler Study 02/28/18 10:01 CONCLUSION: 1. Extensive left lower extremity deep venous thrombosis; was seen on 2017. Head CT 02/28/18 10:03 CONCLUSION: 1. Negative for acute process Lumbar Spine CT 02/28/18 11:33 CONCLUSION: 1. Degenerative disc disease asymmetric to left at L5-S1 with prominent osteophytic spur impinging on the traversing left S1 nerve root. Moderate bilateral foraminal narrowing at L5-S1. Chest X-Ray 02/28/18 13:30 CONCLUSION: Negative for acute process Abdomen/Pelvis CT 03/01/18 00:00 CONCLUSION: 1. Ill-defined and partially nodular opacities about the posterior peritoneal margin and in the anterior peritoneum or omentum. This nonspecific in appearance , but is a new finding compared to prior CT scans and suggests possible peritoneal carcinomatosis. Recommend further characterization with PET/CT scan. Catheter Placement 03/01/18 00:00 CONCLUSION: 1. Uncomplicated line placement as above. 2. I believe the right IJ is either quite diminutive or occluded. The small vessel identified intermittently adjacent to the carotid may represent the tortuous external jugular. 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 - Pt was brought into the ED at [facility] [place] on 02/28/18 with generalized weakness after being found down on the floor by his land lord. - He was notably hypotensive at admission and found to be in acute renal failure with Cr 6.06/BUN 68. His previous Cr was 0.76 in 01/2018. - The etiology for his ARF is unclear, possible related to volume depletion vs. hypotension/underperfusion vs. possible infection vs. other. Pt denies any NSAID use and denies any recent N/V/D. - CT Abd/pelvis (02/28/18) --> Ill-defined and partially nodular opacities about the posterior peritoneal margin and in the anterior peritoneum or omentum. This nonspecific in appearance, but is a new finding compared to prior CT scans and suggests possible peritoneal carcinomatosis. Recommend further characterization with PET/CT scan. - Renal u/s (02/28/18) --> Concerning findings with respect to the right kidney with asymmetric increased echogenicity of the upper pole as compared to the lower pole and decreased flow identified within the lower pole. Given the findings of PE on prior CT this may reflect sequelae of an embolus to the right kidney. - Vascath placed on 03/01 and HD initiated - Pt still with lower BP readings. MAP over 60 currently. bolus prn - Cont IVF - Pts labs with improving Cr to 4.63/BUN 70, GFR 13 on 03/03 - Renal following - Avoid nephrotoxic medications - Hold THERON LLE DVT Bilateral PE - Pt has been without Lovenox for the last week - He had a repeat LLE US at admission which noted extensive left lower extremity deep venous thrombosis which was seen previously on 01/21/2018. - Due to his DOMINGUEZ we cannot resume Lovenox at this time - Cont heparin gtt. - PT HTN Hypotension - Hold home bp meds - Give IVF - his pain meds lowered due to hypotension. 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 Hernandez - He has been on Xeloda, this will need to be held due to DOMINGUEZ - Pt reportedly had an outpt PET scan but I do not have the results of this. - During his last admission he had Rectal EUS (01/28/18) --> Small rectal polyp. Anorectal mass infiltrating into the pericolonic tissue is noted on the EUS. A mildly hypoechoic mass measuring at least 1 x 2.3 cm with no regional lymph nodes not obvious vascular invasion. The staging for this is T3 N0. - His CT questions new peritoneal carcinomatosis. - Pts Oncologist has been consulted Diabetes Mellitus - Hold outpt medications - NovoLog SSI - Attending Attestation Patient examined. Assessment and plan formulated with Kati Gonzales PA-C. I agree with the above.
--- NOTE | 2018-03-03 12:12 | NM ---
EXAM DATE: 03/03/2018 11:43 AM EDT AGE/SEX: 57 years / Male INDICATIONS: Obstruction. CLINICAL DATA: This is the patient's initial encounter. Patient reports that signs and symptoms have been present for 1 day and indicates a pain score of 0/10. MEDICAL/SURGICAL HISTORY: Diabetes mellitus type II. Deep venous thrombosis. Hypertension. R ectal cancer. . Right knee. COMPARISON: No prior exams available for comparison. TECHNIQUE: Following the intravenous administration of radiotracer, dynamic imaging of flow and excre tory phases was performed. DOSE: 20.1 mCi Tc99m DTPA IV MEDICATION: 40 mg Lasix IV at 13 min. minutes. FINDINGS: Flow: There is symmetrical flow and excretion. Differential Function: 46.5% % on Right. 53.5 % on Left. . Excretion: There is normal renal cortical transit time and normal rate of washout from the parenchym a. CONCLUSION: 1. Normal DTPA renogram without obstruction. Split function 54% left 46% right Electronically signed by: Cuauhtemoc Austin MD 03/03/2018 12:11 PM EDT
--- NOTE | 2018-03-03 17:58 | P.PNNP ---
Subjective Interval history: Patient more alert has passed urine, renal scan looks normal hemodialysis carried out Physical Exam Vital signs: Vital Signs 03/02/18 19:00 03/02/18 20:00 03/02/18 21:00 Temperature 98.4 F Pulse Rate 83 96 H 94 H Respiratory Rate 20 Blood Pressure 103/61 Pulse Oximetry 98 98 03/02/18 22:00 03/02/18 22:47 03/02/18 23:00 Temperature 98.6 F Pulse Rate 94 H 90 84 Respiratory Rate 20 Blood Pressure 84/50 L Pulse Oximetry 97 03/03/18 00:00 03/03/18 01:00 03/03/18 02:00 Temperature Pulse Rate 92 H 88 92 H Respiratory Rate Blood Pressure Pulse Oximetry 03/03/18 03:00 03/03/18 04:00 03/03/18 05:00 Temperature 98.8 F Pulse Rate 97 H 75 75 Respiratory Rate 20 18 Blood Pressure 83/46 L Pulse Oximetry 95 03/03/18 06:00 03/03/18 07:00 03/03/18 08:00 Temperature 98.7 F Pulse Rate 94 H 97 H 112 H Respiratory Rate 17 Blood Pressure 109/65 Pulse Oximetry 97 96 03/03/18 09:00 03/03/18 10:00 03/03/18 11:00 Temperature Pulse Rate 102 H 104 H 101 H Respiratory Rate Blood Pressure Pulse Oximetry 03/03/18 13:00 03/03/18 15:00 03/03/18 16:00 Temperature 97.9 F Pulse Rate 95 H 92 H 112 H Respiratory Rate 15 Blood Pressure 147/93 H Pulse Oximetry 99 03/03/18 16:49 03/03/18 17:00 Temperature Pulse Rate 68 Respiratory Rate 17 Blood Pressure Pulse Oximetry Intake & Output 03/02/18 03/03/18 03/03/18 18:59 06:59 18:59 Intake Total 2049 / 2050 2210 / 2210 1370 / 1370 Output Total 425 / 425 1999 / 1999 850 / 850 Balance 1625 / 1625 210 / 210 520 / 520 Weight 114.5 kg Intake: IV 1250 / 1250 1250 / 1250 1250 / 1250 Heparin/D5W 25,000 U/250 mL 25, 250 / 250 250 / 250 250 / 250 000 unit In 250 ml @ 18 UNITS/ KG/HR 17.962 mls/hr IV.CONT TITRATE PRN Rx#:[id number] NS Inj 1,000 ML @ 100 mls/hr IV 1000 / 1000 1000 / 1000 1000 / 1000 .CONT .Q10H JAZMINE Rx#:[id number] Oral 800 / 800 960 / 960 120 / 120 Output: Urine 425 / 425 1999 / 1999 850 / 850 Other: # Voids 1 1 Date of Last Bowel Movement 02/27/18 - Constitutional no acute distress - Routine HEENT Exam Head: Present: normocephalic Eye: Present: EOMI - Routine Respiratory Exam Present: CTA bilaterally - Routine Cardiovascular Exam Present: RRR - Routine Abdominal Exam Present: soft, normoactive bowel sounds - Routine Extremities Exam Present: full ROM, pulses intact Assessment and Plan - Assessment (1) DVT (deep venous thrombosis) Code(s): I82.409 - Acute embolism and thrombosis of unspecified deep veins of unspecified lower extremity Status: Acute (2) Acute pulmonary embolism Code(s): I26.99 - Other pulmonary embolism without acute cor pulmonale Status : Acute (3) Rectal cancer metastasized to liver Code(s): C20 - Malignant neoplasm of rectum; C78.7 - Secondary malignant neoplasm of liver and intrahepatic bile duct Status: Acute (4) DM type 2 (diabetes mellitus, type 2) Code(s): E11.9 - Type 2 diabetes mellitus without complications Status: Chronic Qualifiers: Diabetes mellitus mcc insulin use: without watermaster use Diabetes mellitus complication status: without complication Qualified Code(s): E11.9 - Type 2 diabetes mellitus without complications (5) Acute renal failure (ARF) Code(s): N17.9 - Acute kidney failure, unspecified Status: Acute - Plan Patient patient is on Xeloda, he could be complication of his cancer or chemotherapeutic agent, acute renal failure appears to be worsening, his urine output has declined, Check KINJAL, serum complement Patient is on heparin Urine output is much better Patient started hemodialysis Saturday Etiology of acute renal failure not certain could be medication, cancer, low blood pressure, renal scan to check perfusion was showing good renal function and hemodialysis was done only [address] scan showed peritoneal carcinomatosis Acute renal failure appears to resolve Follow BMP next tomorrow
[2018-03-03] MEDS: Gabapentin 100 MG Capsule PO SCH (20:55)
[2018-03-04] MEDS: Pantoprazole Inj 40 MG Vial IV.PUSH SCH ×2 (04:14→16:03)
[2018-03-04] MEDS: Heparin Drip 25,000 UNIT/250 ML BAG IV.CONT PRN ×2 (04:57→20:28)
[2018-03-04] MEDS: Calcium Acetate 667 MG Capsule PO SCH ×4 (08:22→18:17)
[2018-03-04] MEDS: Insulin NovoLOG Aspart Correctional Sugar Inj SQ SCH ×4 (08:22→20:38)
[2018-03-04 08:27] LABS: Baso % (Auto) 0.7 % (0.0-2.0); Eos # (Auto) 0.2 th/mm3 (0.0-0.4); Eos % (Auto) 4.7 % (0.0-4.0); Hematocrit 31.1 % (39.0-51.0); Hemoglobin 10.7 gm/dL (13.0-17.0); Lymph # (Auto) 0.3 th/mm3 (1.0-4.8); Lymph % (Auto) 5.5 % (9.0-44.0); Mean Corpuscular HGB Conc 34.5 % (32.0-36.0); Mean Corpuscular Hemoglobin 35.6 pg (27.0-34.0); Mean Corpuscular Volume 103.3 fL (80.0-100.0); Mean Platelet Volume 6.8 fL (7.0-11.0); Mono # (Auto) 0.7 th/mm3 (0.0-0.9); Mono % (Auto) 13.5 % (0.0-8.0); Neut # (Auto) 3.8 th/mm3 (1.8-7.7); Neut % (Auto) 75.6 % (16.0-70.0); Platelet Count 142 th/mm3 (150-450); Red Blood Count 3.01 mil/mm3 (4.50-5.90); Red Cell Distribution Width 21.1 % (11.6-17.2)
[2018-03-04 09:05] LABS: Calcium 8.5 mg/dL (8.5-10.1); Carbon Dioxide 24.1 meq/L (21.0-32.0); Potassium 3.7 meq/L (3.5-5.1)
--- NOTE | 2018-03-04 10:11 | P.PNIM ---
Subjective Interval history: Pt still with lower BP readings but more stable overnight and this morning Pt urinating well Physical Exam Vital signs: Vital Signs 03/03/18 11:00 03/03/18 13:00 03/03/18 15:00 Temperature 97.9 F Pulse Rate 101 H 95 H 92 H Respiratory Rate 15 Blood Pressure 147/93 H Pulse Oximetry 99 03/03/18 16:00 03/03/18 16:49 03/03/18 17:00 Temperature Pulse Rate 112 H 68 Respiratory Rate 17 Blood Pressure Pulse Oximetry 03/03/18 18:00 03/03/18 19:00 03/03/18 19:52 Temperature 98 F Pulse Rate 92 H 99 H 92 H Respiratory Rate 17 Blood Pressure 88/63 L Pulse Oximetry 98 03/03/18 20:00 03/03/18 20:50 03/03/18 21:00 Temperature Pulse Rate 100 H 92 H 102 H Respiratory Rate Blood Pressure 95/64 L Pulse Oximetry 96 03/03/18 22:00 03/03/18 23:00 03/03/18 23:40 Temperature 98 F Pulse Rate 100 H 108 H 100 H Respiratory Rate 17 Blood Pressure 103/62 Pulse Oximetry 98 03/04/18 00:00 03/04/18 01:00 03/04/18 02:00 Temperature Pulse Rate 94 H 95 H 54 L Respiratory Rate Blood Pressure Pulse Oximetry 03/04/18 03:00 03/04/18 04:00 03/04/18 04:17 Temperature 98 F Pulse Rate 93 H 80 93 H Respiratory Rate 17 Blood Pressure 118/60 Pulse Oximetry 98 03/04/18 05:00 03/04/18 06:00 03/04/18 07:00 Temperature 98.7 F Pulse Rate 94 H 100 H 80 Respiratory Rate 17 Blood Pressure 118/60 Pulse Oximetry 97 Intake & Output 03/03/18 03/04/18 03/04/18 18:59 06:59 18:59 Intake Total 1370 / 1370 420 / 420 Output Total 850 / 850 1700 / 1700 Balance 520 / 520 -1280 / -1280 Weight 114.5 kg Intake: IV 1250 / 1250 Heparin/D5W 25,000 U/250 mL 25, 250 / 250 000 unit In 250 ml @ 18 UNITS/ KG/HR 17.962 mls/hr IV.CONT TITRATE PRN Rx#:[id number] NS Inj 1,000 ML @ 100 mls/hr IV 1000 / 1000 .CONT .Q10H JAZMINE Rx#:[id number] Oral 120 / 120 420 / 420 Output: Urine 850 / 850 1700 / 1700 Other: # Voids 1 Date of Last Bowel Movement 02/27/18 02/27/18 Narrative: General: NAD, Awake, alert, confused Chest: CTA Cardiac: Regular Abd: +BS, soft ND/NT Ext: mild bilateral LE edema Results - Labs CBC & Chem 7: 03/05/18 04:40 03/05/18 04:40 Laboratory Results - last 24 hr 02/28/18 03/03/18 03/03/18 21:15 17:31 21:46 WBC RBC Hgb Hct MCV MCH MCHC RDW Plt Count MPV Neut % (Auto) Lymph % (Auto) [place] % (Auto) Eos % (Auto) Baso % (Auto) Neut # (Auto) Lymph # (Auto) [place] # (Auto) Eos # (Auto) Baso # (Auto) WBC Differential Differential Comment APTT Sodium Potassium Chloride Carbon Dioxide Anion Gap BUN Creatinine Estimated GFR POC Glucose 266 H 205 H Random Glucose Calcium KINJAL Screen Neg 03/04/18 03/04/18 03/04/18 08:09 08:09 08:09 WBC 5.0 RBC 3.01 L Hgb 10.7 L Hct 31.1 L MCV 103.3 H MCH 35.6 H MCHC 34.5 RDW 21.1 H Plt Count 142 L MPV 6.8 L Neut % (Auto) 75.6 H Lymph % (Auto) 5.5 L [place] % (Auto) 13.5 H Eos % (Auto) 4.7 H Baso % (Auto) 0.7 Neut # (Auto) 3.8 Lymph # (Auto) 0.3 L [place] # (Auto) 0.7 Eos # (Auto) 0.2 Baso # (Auto) 0.0 WBC Differential . Differential Comment Auto diff final APTT 63.5 H Sodium 140 Potassium 3.7 Chloride 103 Carbon Dioxide 24.1 Anion Gap 13 BUN 39 H Creatinine 2.17 H Estimated GFR 31 L POC Glucose Random Glucose 158 H Calcium 8.5 KINJAL Screen 03/04/18 08:21 WBC RBC Hgb Hct MCV MCH MCHC RDW Plt Count MPV Neut % (Auto) Lymph % (Auto) [place] % (Auto) Eos % (Auto) Baso % (Auto) Neut # (Auto) Lymph # (Auto) [place] # (Auto) Eos # (Auto) Baso # (Auto) WBC Differential Differential Comment APTT Sodium Potassium Chloride Carbon Dioxide Anion Gap BUN Creatinine Estimated GFR POC Glucose 192 H Random Glucose Calcium KINJAL Screen Microbiology 02/28/18 14:50 Blood - Peripheral Aerobic Blood Culture - Preliminary No growth in 3 days 02/28/18 14:50 Blood - Peripheral Anaerobic Blood Culture - Preliminary No growth in 3 days 02/28/18 16:55 Blood - Peripheral Aerobic Blood Culture - Preliminary No growth in 3 days 02/28/18 16:55 Blood - Peripheral Anaerobic Blood Culture - Preliminary No growth in 3 days - Imaging Impressions Renal Scan w/Medication NM 03/03/18 00:00 CONCLUSION: 1. Normal DTPA renogram without obstruction. 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 - Pt was brought into the ED at [facility] on 02/28/18 with generalized weakness after being found down on the floor by his land lord. - He was notably hypotensive at admission and found to be in acute renal failure with Cr 6.06/BUN 68. His previous Cr was 0.76 in 01/2018. - The etiology for his ARF is unclear, possible related to volume depletion/ hypotension/underperfusion vs. medication vs. cancer or a combination of these issues. Pt denies any NSAID use and denies any recent N/V/D. - CT Abd/pelvis (02/28/18) --> Ill-defined and partially nodular opacities about the posterior peritoneal margin and in the anterior peritoneum or omentum. This nonspecific in appearance, but is a new finding compared to prior CT scans and suggests possible peritoneal carcinomatosis. Recommend further characterization with PET/CT scan. - Renal u/s (02/28/18) --> Concerning findings with respect to the right kidney with asymmetric increased echogenicity of the upper pole as compared to the lower pole and decreased flow identified within the lower pole. Given the findings of PE on prior CT this may reflect sequelae of an embolus to the right kidney. - Vascath placed on 03/01 and HD initiated - Pts labs with improving Cr to 4.63/BUN 70, GFR 13 on 03/03 and repeat labs on with Cr 2.17 - Renal scan to check perfusion was showing good renal function and hemodialysis on 03/03 was done with only 600 cc removed - Pt is urinating well - ARF appears to be resolving - Renal following - Avoid nephrotoxic medications - Hold THERON LLE DVT Bilateral PE - Pt has been without Lovenox for the last week - He had a repeat LLE US at admission which noted extensive left lower extremity deep venous thrombosis which was seen previously on 01/21/2018. - Due to his DOMINGUEZ we cannot resume Lovenox at this time - Cont heparin gtt. - PT HTN Hypotension - Hold home bp meds - Give IVF - his pain meds lowered due to hypotension. 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 Hernandez - He has been on Xeloda, this will need to be held due to DOMINGUEZ - Pt reportedly had an outpt PET scan but I do not have the results of this. - During his last admission he had Rectal EUS (01/28/18) --> Small rectal polyp. Anorectal mass infiltrating into the pericolonic tissue is noted on the EUS. A mildly hypoechoic mass measuring at least 1 x 2.3 cm with no regional lymph nodes not obvious vascular invasion. The staging for this is T3 N0. - His CT questions new peritoneal carcinomatosis. - Pts Oncologist has been consulted Diabetes Mellitus - Hold outpt medications - NovoLog SSI - Attending Attestation Patient examined. Assessment and plan formulated with Kati Gonzales PA-C. I agree with the above.
[2018-03-04] MEDS: Sod Chloride 0.9% Inj 1,000 ML IV.CONT SCH ×2 (10:23→13:06)
--- NOTE | 2018-03-04 13:40 | P.PNNP ---
Subjective Interval history: Patient is anxious to go home Physical Exam Vital signs: Vital Signs 03/03/18 15:00 03/03/18 16:00 03/03/18 16:49 Temperature 97.9 F Pulse Rate 92 H 112 H Respiratory Rate 15 17 Blood Pressure 147/93 H Pulse Oximetry 99 03/03/18 17:00 03/03/18 18:00 03/03/18 19:00 Temperature Pulse Rate 68 92 H 99 H Respiratory Rate Blood Pressure Pulse Oximetry 03/03/18 19:52 03/03/18 20:00 03/03/18 20:50 Temperature 98 F Pulse Rate 92 H 100 H 92 H Respiratory Rate 17 Blood Pressure 88/63 L 95/64 L Pulse Oximetry 98 96 03/03/18 21:00 03/03/18 22:00 03/03/18 23:00 Temperature Pulse Rate 102 H 100 H 108 H Respiratory Rate Blood Pressure Pulse Oximetry 03/03/18 23:40 03/04/18 00:00 03/04/18 01:00 Temperature 98 F Pulse Rate 100 H 94 H 95 H Respiratory Rate 17 Blood Pressure 103/62 Pulse Oximetry 98 03/04/18 02:00 03/04/18 03:00 03/04/18 04:00 Temperature Pulse Rate 54 L 93 H 80 Respiratory Rate Blood Pressure Pulse Oximetry 03/04/18 04:17 03/04/18 05:00 03/04/18 06:00 Temperature 98 F Pulse Rate 93 H 94 H 100 H Respiratory Rate 17 Blood Pressure 118/60 Pulse Oximetry 98 03/04/18 07:00 03/04/18 08:00 03/04/18 09:00 Temperature 98.7 F Pulse Rate 80 60 80 Respiratory Rate 17 Blood Pressure 118/60 Pulse Oximetry 97 97 03/04/18 10:00 03/04/18 10:36 Temperature Pulse Rate 116 H Respiratory Rate Blood Pressure Pulse Oximetry 96 Intake & Output 03/03/18 03/04/18 03/04/18 18:59 06:59 18:59 Intake Total 1370 / 1370 420 / 420 1000 / 1000 Output Total 850 / 850 1700 / 1700 Balance 520 / 520 -1280 / -1280 1000 / 1000 Weight 114.5 kg Intake: IV 1250 / 1250 1000 / 1000 Heparin/D5W 25,000 U/250 mL 25, 250 / 250 000 unit In 250 ml @ 18 UNITS/ KG/HR 17.962 mls/hr IV.CONT TITRATE PRN Rx#:[id number] NS Inj 1,000 ML @ 100 mls/hr IV 1000 / 1000 1000 / 1000 .CONT .Q10H JAZMINE Rx#:[id number] Oral 120 / 120 420 / 420 Output: Urine 850 / 850 1700 / 1700 Other: # Voids 1 Date of Last Bowel Movement 02/27/18 02/27/18 - Constitutional no acute distress - Routine HEENT Exam Eye: Present: EOMI - Routine Neck Exam Present: supple - Routine Respiratory Exam Present: CTA bilaterally - Routine Cardiovascular Exam Present: RRR - Routine Abdominal Exam Present: soft, normoactive bowel sounds - Routine Neurological Exam Present: alert Assessment and Plan - Assessment (1) DVT (deep venous thrombosis) Code(s): I82.409 - Acute embolism and thrombosis of unspecified deep veins of unspecified lower extremity Status: Acute (2) Acute pulmonary embolism Code(s): I26.99 - Other pulmonary embolism without acute cor pulmonale Status : Acute (3) Rectal cancer metastasized to liver Code(s): C20 - Malignant neoplasm of rectum; C78.7 - Secondary malignant neoplasm of liver and intrahepatic bile duct Status: Acute (4) DM type 2 (diabetes mellitus, type 2) Code(s): E11.9 - Type 2 diabetes mellitus without complications Status: Chronic Qualifiers: Diabetes mellitus alf insulin use: without director long term care use Diabetes mellitus complication status: without complication Qualified Code(s): E11.9 - Type 2 diabetes mellitus without complications (5) Acute renal failure (ARF) Code(s): N17.9 - Acute kidney failure, unspecified Status: Acute - Plan Patient patient is on Xeloda, he could be complication of his cancer or chemotherapeutic agent, acute renal failure appears to be worsening, his urine output has declined, Negative KINJAL, normal serum complement Patient is on heparin Urine output is much better No need for further dialysis as urine output has improved DC vascular access by a.m. Per medical oncology team Patient can be discharged from nephrology point of view
[2018-03-04] MEDS: Gabapentin 100 MG Capsule PO SCH (20:36)
--- NOTE | 2018-03-04 22:13 | MB ---
cc: Reynaldo Downs MD DATE: 03/04/2018 REASON FOR CONSULTATION: Oncology consult to render opinion regarding patient with metastatic rectal cancer. HISTORY OF PRESENT ILLNESS: The patient is a 57-year-old male brought into the hospital with complaint of left lower extremity pain. The patient is a very poor historian and history is kind of difficult to understand. Apparently, he fell around last . Saturday morning complained of increased left leg pain and swelling. He then came to the emergency room. He was found to have acute renal failure and was started on hemodialysis. He had a history of left lower extremity deep venous thrombosis and pulmonary embolism in 01/2018. He had IVC filter placement. He was supposed to be on Lovenox, but he ran out and did not have Lovenox for about 10 days prior to his presentation. He was switched to heparin during his admission because of renal failure. His leg pain has improved. He has history of anorectal cancer with 2 metastatic lesions in the liver. He was treated with chemotherapy and radiation and had good response. He went to see Dr. Emerson at [facility] last . He was told that he is going to need surgery and possible colostomy, but he declined. At this point, he denies any chest pain or palpitation. He has no shortness of breath or cough. He denies any nausea or vomiting. He denies abdominal pain. He denies change in bowel habit. He is anxious to go home. PAST MEDICAL HISTORY: 1. Metastatic anorectal cancer, liver metastasis. 2. Secondary polycythemia. 3. Obstructive sleep apnea. 4. Chronic obstructive pulmonary disease. 5. Left lower extremity deep venous thrombosis and pulmonary embolism. 6. Anxiety. 7. Hypertension. 8. Diabetes mellitus. PAST SURGICAL HISTORY: 1. Liver biopsy. 2. IVC filter placement. 3. Port placement. 4. Bone marrow biopsy 2015. 5. Right knee surgery. 6. Colonoscopy. FAMILY HISTORY: A cousin had cancer. SOCIAL HISTORY: A [id number] smoking history, quit earlier this year. Denies alcohol use. ALLERGIES: WARFARIN. MEDICATIONS: 1. Calcium acetate. 2. Gabapentin. 3. Heparin. 4. Oxycodone. 5. Protonix. REVIEW OF SYSTEMS: CONSTITUTIONAL: Negative. EYES: Negative. ENT: Negative. CARDIOVASCULAR: No chest pressure or palpitation. RESPIRATORY: No shortness of breath, cough. GASTROINTESTINAL: As above. GENITOURINARY: As above. MUSCULOSKELETAL: As above. HEMATOLOGIC: As above. ENDOCRINE: Negative. DERMATOLOGIC: Negative. PSYCHIATRIC: Negative. NEUROLOGIC: Negative. PHYSICAL EXAMINATION: VITAL SIGNS: Temperature 98, blood pressure 117/77, O2 saturation 90% on room air. GENERAL: He is alert, oriented x3, no acute distress. HEENT: Atraumatic, normocephalic. Pupils are equal, round, reactive to light. Extraocular muscles are intact. No scleral icterus. Oropharynx dry mucosa. No lesion. No thrush or mucositis. NECK: No thyromegaly. No palpable mass. LYMPHATIC: No palpable cervical, clavicular, axillary, or inguinal lymphadenopathy. CARDIOVASCULAR: Regular S1, S2. No murmur. LUNGS: Clear to auscultation. No wheezing or rhonchi. ABDOMEN: Soft, nontender. Cannot palpate liver or spleen. EXTREMITIES: Left lower extremity is slightly bigger. Is wearing compression stocking, a little sore. SKIN: No rash or petechiae. NEUROLOGIC: Nonfocal. LABORATORY DATA: WBC 5, hemoglobin 10.7, platelet count 142, creatinine 2.17. ASSESSMENT AND PLAN: 1. Metastatic anorectal cancer. He is currently under the care of Dr. Hernandez. He was found to have a large 5-6 cm mass in the rectum. He was also noted to have 2 metastatic lesions in the liver. He had biopsy of the liver mass, which showed metastatic moderately differentiated adenocarcinoma with necrosis, consistent with metastasis from colonic primary. He was treated with radiation with concurrent Xeloda; completed 12/2017. In 01/2008, he reportedly had a rectal ultrasound which still showed a 2.3 x 1 cm residual mass. He was then started on Xeloda 2500 mg twice a day. He just completed last cycle a week ago. He was referred to see Dr. Emerson at [facility] last week to consider resection of the rectal mass. The patient, however, states that Dr. Emerson told him he needed a colostomy and he did not want the surgery. The patient had a PET CT scan done 02/07/2018 which showed resolution of the liver mass. There was no significant mass noted in the rectum, but there was thickening of the rectal wall. I suspect that he likely still has a residual tumor in the rectum. I told him he needs to followup with Dr. Carr for another exam. If he wants to be aggressive with treatment, I would recommend resection of the tumor, since his liver metastasis has resolved with chemotherapy. During this admission, CT abdomen and pelvis shows ill-defined partially nodular opacity in the peritoneum and omentum. There was concern for carcinomatosis, but his recent PET scan did not mention any uptake suspicious for carcinomatosis. I am going to check a CEA level. He has many questions today which were answered. 2. Left lower extremity venous thrombosis and pulmonary embolism 01/2018. 3. IVC filter placement. He was supposedly on Lovenox. He ran out of Lovenox and did not administer Lovenox for about 10 days prior to presentation. He is now on heparin because of the renal failure. His lower extremity edema has improved. He can be switched back to Lovenox once his renal function improves. Given that he may need surgery, I recommend keeping him on Lovenox for now. 4. Acute renal failure, on dialysis. He has started making urine. 5. Secondary polycythemia. He now has a mild anemia. 6. Obstructive sleep apnea. 7. Hypertension. 8. Diabetes mellitus. RECOMMENDATIONS: 1. Extensive discussion with the patient as above. The nursing staff was present during our discussion. I recommended the patient follow up with Dr. Carr for another rectal exam, and consider resection of the mass, if he wants to be aggressive with treatment. 2. Check CEA level. 3. Continue heparin and switch to Lovenox once his renal function is improved. Thank you Dr. Austin, for asking me to see this patient. MD CHELITA Robbins/adriana/ , 07:41 PM , 07:57 PM SHANNON
[2018-03-05] MEDS: Sod Chloride 0.9% Inj 1,000 ML IV.CONT SCH ×4 (00:20→16:55)
[2018-03-05] MEDS: Pantoprazole Inj 40 MG Vial IV.PUSH SCH ×2 (04:27→15:14)
[2018-03-05 05:33] LABS: Baso % (Auto) 0.5 % (0.0-2.0); Eos # (Auto) 0.3 th/mm3 (0.0-0.4); Lymph # (Auto) 0.3 th/mm3 (1.0-4.8); Lymph % (Auto) 6.5 % (9.0-44.0); Mean Corpuscular HGB Conc 34.6 % (32.0-36.0); Mean Corpuscular Hemoglobin 35.7 pg (27.0-34.0); Mean Corpuscular Volume 103.2 fL (80.0-100.0); Mono # (Auto) 0.7 th/mm3 (0.0-0.9); Mono % (Auto) 15.5 % (0.0-8.0); Neut # (Auto) 3.2 th/mm3 (1.8-7.7); Neut % (Auto) 70.5 % (16.0-70.0); Platelet Count 148 th/mm3 (150-450); Red Blood Count 2.81 mil/mm3 (4.50-5.90); Red Cell Distribution Width 20.2 % (11.6-17.2); White Blood Count 4.5 th/mm3 (4.0-11.0)
[2018-03-05 06:11] LABS: Calcium 7.9 mg/dL (8.5-10.1); Carbon Dioxide 26.7 meq/L (21.0-32.0); Carcinoembryonic Antigen 22.5 ng/mL (0.2-5.0); Potassium 3.6 meq/L (3.5-5.1)
[2018-03-05] MEDS: Insulin NovoLOG Aspart Correctional Sugar Inj SQ SCH ×3 (08:39→16:55)
[2018-03-05] MEDS: Calcium Acetate 667 MG Capsule PO SCH ×4 (08:39→17:09)
[2018-03-05] MEDS: Heparin Drip 25,000 UNIT/250 ML BAG IV.CONT PRN (10:53)
--- NOTE | 2018-03-05 12:13 | P.PNIM ---
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 After discussion with Dr. Martinez and Dr. Clemens patient aggress to stay in the hospital and have consultation with Dr. Carr and possible colonoscopy. Physical Exam Vital signs: Vital Signs 03/04/18 15:00 03/04/18 17:13 03/04/18 19:00 Temperature 98.0 F 98.5 F Pulse Rate 95 H 101 H Respiratory Rate 17 16 Blood Pressure 117/77 163/81 H Pulse Oximetry 98 98 98 03/04/18 20:00 03/04/18 23:00 03/05/18 00:00 Temperature 98.8 F Pulse Rate 103 H Respiratory Rate 16 Blood Pressure 154/89 H Pulse Oximetry 98 97 97 03/05/18 03:00 03/05/18 07:00 03/05/18 07:50 Temperature 98.6 F 98.6 F Pulse Rate 100 H 74 Respiratory Rate 16 16 Blood Pressure 119/56 L 142/84 H Pulse Oximetry 96 98 96 Intake & Output 03/04/18 03/05/18 03/05/18 18:59 06:59 18:59 Intake Total 1000 / 1000 1090 / 1090 1250 / 1250 Output Total 1020 / 1020 Balance 1000 / 1000 70 / 70 1250 / 1250 Weight 114 kg Intake: IV 1000 / 1000 250 / 250 1250 / 1250 Heparin/D5W 25,000 U/250 mL 25, 250 / 250 250 / 250 000 unit In 250 ml @ 18 UNITS/ KG/HR 17.962 mls/hr IV.CONT TITRATE PRN Rx#:[id number] NS Inj 1,000 ML @ 100 mls/hr IV 1000 / 1000 1000 / 1000 .CONT .Q10H JAZMINE Rx#:[id number] Oral 840 / 840 Output: Urine 1020 / 1020 Other: # Voids 1 Date of Last Bowel Movement 02/27/18 03/04/18 # Bowel Movements 1 Narrative: General: NAD, Awake, alert with periods of confused Chest: CTA Cardiac: Regular Abd: +BS, soft ND/NT Ext: mild bilateral LE edema Results - Labs CBC & Chem 7: 03/05/18 04:40 09/12/18 04:40 Laboratory Results - last 24 hr 02/28/18 03/04/18 03/05/18 21:15 20:05 04:40 WBC 4.5 RBC 2.81 L Hgb 10.0 L Hct 29.0 L MCV 103.2 H MCH 35.7 H MCHC 34.6 RDW 20.2 H Plt Count 148 L MPV 7.0 Neut % (Auto) 70.5 H Lymph % (Auto) 6.5 L [place] % (Auto) 15.5 H Eos % (Auto) 7.0 H Baso % (Auto) 0.5 Neut # (Auto) 3.2 Lymph # (Auto) 0.3 L [place] # (Auto) 0.7 Eos # (Auto) 0.3 Baso # (Auto) 0.0 WBC Differential . Differential Comment Auto diff final APTT Sodium Potassium Chloride Carbon Dioxide Anion Gap BUN Creatinine Estimated GFR POC Glucose 198 H Random Glucose Calcium Carcinoembryonic Ag GRETA Interpretation 03/05/18 03/05/18 03/05/18 04:40 07:15 07:29 WBC RBC Hgb Hct MCV MCH MCHC RDW Plt Count MPV Neut % (Auto) Lymph % (Auto) [place] % (Auto) Eos % (Auto) Baso % (Auto) Neut # (Auto) Lymph # (Auto) [place] # (Auto) Eos # (Auto) Baso # (Auto) WBC Differential Differential Comment APTT 79.7 H D Sodium 141 Potassium 3.6 Chloride 105 Carbon Dioxide 26.7 Anion Gap 9 BUN 28 H Creatinine 1.43 H Estimated GFR 51 L POC Glucose 179 H Random Glucose 182 H Calcium 7.9 L Carcinoembryonic Ag 22.5 H GRETA Interpretation 03/05/18 10:59 WBC RBC Hgb Hct MCV MCH MCHC RDW Plt Count MPV Neut % (Auto) Lymph % (Auto) [place] % (Auto) Eos % (Auto) Baso % (Auto) Neut # (Auto) Lymph # (Auto) [place] # (Auto) Eos # (Auto) Baso # (Auto) WBC Differential Differential Comment APTT Sodium Potassium Chloride Carbon Dioxide Anion Gap BUN Creatinine Estimated GFR POC Glucose 174 H Random Glucose Calcium Carcinoembryonic Ag GRETA Interpretation Microbiology 02/28/18 14:50 Blood - Peripheral Aerobic Blood Culture - Final No growth in 5 days 02/28/18 14:50 Blood - Peripheral Anaerobic Blood Culture - Final No growth in 5 days 02/28/18 16:55 Blood - Peripheral Aerobic Blood Culture - Final No growth in 5 days 02/28/18 16:55 Blood - Peripheral Anaerobic Blood Culture - Final No growth in 5 days Assessment and Plan - Assessment (1) Acute renal failure (ARF) Code(s): N17.9 - Acute kidney failure, unspecified Status: Acute Plan: Acute Renal Failure, improving - Pt is a pleasant 57 y/o WM with 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 - Pt was brought into the ED at [facility] on 02/28/18 with generalized weakness after being found down on the floor by his land lord. - He was notably hypotensive at admission and found to be in acute renal failure with Cr 6.06/BUN 68. His previous Cr was 0.76 in 01/2018. - The etiology for his ARF is unclear, possible related to volume depletion/ hypotension/underperfusion vs. medication vs. cancer or a combination of these issues. Pt denies any NSAID use and denies any recent N/V/D. - CT Abd/pelvis (02/28/18) --> Ill-defined and partially nodular opacities about the posterior peritoneal margin and in the anterior peritoneum or omentum. This nonspecific in appearance, but is a new finding compared to prior CT scans and suggests possible peritoneal carcinomatosis. Recommend further characterization with PET/CT scan. - Renal u/s (02/28/18) --> Concerning findings with respect to the right kidney with asymmetric increased echogenicity of the upper pole as compared to the lower pole and decreased flow identified within the lower pole. Given the findings of PE on prior CT this may reflect sequelae of an embolus to the right kidney. - Vascath placed on 03/01 and HD initiated - Pts labs with improving Cr to 4.63/BUN 70, GFR 13 on 03/03 and repeat labs on with Cr 2.17, 03/05 Cr 1.43 - Renal scan to check perfusion was showing good renal function and hemodialysis on 03/03 was done with only 600 cc removed - Pt is urinating well - ARF appears to be resolving - Renal also following creatinine 1.43 today per nephrology ok to DC vascular access, Patient can be discharged from nephrology point of view - Avoid nephrotoxic medications - Hold THERON LLE DVT Bilateral PE - Pt has been without Lovenox for the last week - He had a repeat LLE US at admission which noted extensive left lower extremity deep venous thrombosis which was seen previously on 01/21/2018. - Due to his DOMINGUEZ we cannot resume Lovenox at this time - Cont heparin gtt. - PT HTN Hypotension - Hold home bp meds - Give IVF - his pain meds lowered due to hypotension. 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 Hernandez - He has been on Xeloda, this will need to be held due to DOMINGUEZ - Pt reportedly had an outpt PET scan but I do not have the results of this. - During his last admission he had Rectal EUS (01/28/18) --> Small rectal polyp. Anorectal mass infiltrating into the pericolonic tissue is noted on the EUS. A mildly hypoechoic mass measuring at least 1 x 2.3 cm with no regional lymph nodes not obvious vascular invasion. The staging for this is T3 N0. - Oncologist recommended the patient follow up with Dr. Carr for another rectal exam, and consider resection of the mass, if he wants to be aggressive with treatment. Check CEA level 22.5 Continue heparin and switch to Lovenox once his renal function is improved. - consult placed to Dr. Carr, patient has seen Dr. Carr in 10/2017. await further recommendations Diabetes Mellitus - Hold outpt medications - NovoLog SSI Plan to DC once cleared by Dr. Carr and Dr. Downs. Possible DC later today or tomorrow - Attending Attestation Patient examined. Assessment and plan formulated with Minerva Marino PA-C. I agree with the above. - Case d/w Dr. Carr (03/05). He will consult. - Ideally pt should have repeat Sigmoidoscopy/Colonoscopy for reevaluation - Case d/w Dr. Ba Clemens (03/05) by phone at the bedside. He also agreed with in hospital reevaluation with Dr. Carr. - Pt is trepidation about the possibility of requiring a colostomy. - Pt agrees to remain in the hospital for consultation with Dr. Carr & possible colonoscopy.
--- NOTE | 2018-03-05 13:06 | P.DS ---
<Minerva Marino W - Last Filed: 03/06/18 16:03> Date of admission: 02/28/18 13:54 Primary care physician: Axel Manrique MD Attending physician on discharge: Babak Martinez Anticipated date of discharge: 03/05/18 Brief History from admission: Mr. 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 Patient was recently admitted to [facility] from 01/21/18 - 01/28/18 and was found to have an extensive DVT in the left lower extremity thrombus with occlusive thrombus in the common femoral vein, superficial femoral vein, popliteal vein and down to the distal posterior tibial vein. He was also found to have extensive bilateral pulmonary disease embolic disease. Patient was started on heparin drip at admission and was converted to Lovenox on the day of discharge and per Oncology recommendations pt had a retrievable IVC filter placed. Pt was discharged to [facility] and was there for a few days and then discharged home to continue Lovenox. Pt was brought back into the ED at [facility] on 02/28/18 after he was found down by his landlord. Pt states that he has had increased pain in the LE because he has been out of his pain medications for the last two days. He had been ambulating with the help of a walker but has had increased weakness in his LE and increased difficulty ambulating. He complains of his feet being cold especially the left foot which has contributed to his pain in his legs and difficulty ambulating. He states that he has been drinking water daily but yesterday he did not eat much. He has been taking the Xeloda daily. He reports that he has been urinating at home without difficulty and denies any dark or concentrated urine. He states that he has not taken any Lovenox in the last week because of an issue with getting it from the pharmacy. He was also out of his Neurontin. He has been taking his Metformin and Tresiba 40 units in the AM and 40 units in the PM but does not always take this twice daily. He denies any nausea/vomiting , diarrhea, constipation, abd pain. He denies taking any Motrin, Ibuprofen, Goody powder, Advil, or ASA. 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 Hernandez Bilateral PE LLE extensive DVT Diabetes mellitus HTN Hypertriglyceridemia Vianey's thyroiditis ELIAZAR Secondary Polycythemia RBBB Hx of LE DVT following surgery in 2012 Past Surgical History Colonoscopy by Dr. Carr (September 2017) --> Normal ileocecal valve. 5-6 cm cancer in the anus, lower vault, ulcerated. Mild diverticular disease rectosigmoid colon. Pathology --> Invasive adenocarcinoma, well differentiated Liver biopsy (October 2017) metastatic moderately differentiated adenocarcinoma with necrosis, consistent with metastasis from a colonic primary Rectal EUS (01/28/18) --> Small rectal polyp. Anorectal mass infiltrating into the pericolonic tissue is noted on the EUS. A mildly hypoechoic mass measuring at least 1 x 2.3 cm with no regional lymph nodes not obvious vascular invasion. The staging for this is T3 N0. Right knee arthroscopy 2012 Family History Noncontributory Social History (+)Tobacco use, pt has smoked approximately 1 pack per day for many years but has decreased down to around 1-2 cigarettes per day. Denies any alcohol or illicit drug use DS: Diagnosis - Discharge Diagnosis (1) Acute renal failure (ARF) Status: Acute DS: Summary Hospital Course: Acute Renal Failure, improving - Pt is a pleasant 57 y/o WM with 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 - Pt was brought into the ED at [facility] on 02/28/18 with generalized weakness after being found down on the floor by his land lord. - He was notably hypotensive at admission and found to be in acute renal failure with Cr 6.06/BUN 68. His previous Cr was 0.76 in 01/2018. - The etiology for his ARF is unclear, possible related to volume depletion/ hypotension/underperfusion vs. medication vs. cancer or a combination of these issues. Pt denies any NSAID use and denies any recent N/V/D. - CT Abd/pelvis (02/28/18) --> Ill-defined and partially nodular opacities about the posterior peritoneal margin and in the anterior peritoneum or omentum. This nonspecific in appearance, but is a new finding compared to prior CT scans and suggests possible peritoneal carcinomatosis. Recommend further characterization with PET/CT scan. - Renal u/s (02/28/18) --> Concerning findings with respect to the right kidney with asymmetric increased echogenicity of the upper pole as compared to the lower pole and decreased flow identified within the lower pole. Given the findings of PE on prior CT this may reflect sequelae of an embolus to the right kidney. - Vascath placed on 03/01 and HD initiated - Pts labs with improving Cr to 4.63/BUN 70, GFR 13 on 03/03 and repeat labs on with Cr 2.17, 03/05 Cr 1.43 - Renal scan to check perfusion was showing good renal function and hemodialysis on 03/03 was done with only 600 cc removed - Pt is urinating well - ARF appears to be resolving - Renal also following creatinine 1.43 today per nephrology ok to DC vascular access, Patient can be discharged from nephrology point of view - Avoid nephrotoxic medications - Hold THERON LLE DVT Bilateral PE - Pt has been without Lovenox for the last week - He had a repeat LLE US at admission which noted extensive left lower extremity deep venous thrombosis which was seen previously on 01/21/2018. - Due to his DOMINGUEZ we cannot resume Lovenox at this time - Cont heparin gtt. while in hospital - patient to start Lovenox tomorrow after coloscopy. - would like to have patient take lovenox 11mg SQ BID, but patient has been unable to be compliant in the past. Per discussion and recommendations from Dr. Martinez will start patient on Lovenox 150 mg SQ daily. - PT HTN Hypotension - Hold home bp meds - Give IVF - his pain meds lowered due to hypotension. 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 Hernandez - He has been on Xeloda, this will need to be held due to DOMINGUEZ - Pt reportedly had an outpt PET scan but I do not have the results of this. - During his last admission he had Rectal EUS (01/28/18) --> Small rectal polyp. Anorectal mass infiltrating into the pericolonic tissue is noted on the EUS. A mildly hypoechoic mass measuring at least 1 x 2.3 cm with no regional lymph nodes not obvious vascular invasion. The staging for this is T3 N0. - Oncologist recommended the patient follow up with Dr. Carr for another rectal exam, and consider resection of the mass, if he wants to be aggressive with treatment. Check CEA level 22.5 Continue heparin and switch to Lovenox once his renal function is improved. - Discusses case with oncology [employer] Ms Mcrae - cleared patient for DC form oncology perspective. - consult placed to Dr. Carr, patient has seen Dr. Carr in 10/2017. - Patient seen by Dr. Carr recommending colonoscopy. Patient unable to have colonoscopy here at [facility] tomorrow due to OR scheduling. Plan for patient to have outpatient colonoscopy with Dr. Carr tomorrow 03/06/18. Diabetes Mellitus - Hold outpt medications - NovoLog SSI Patient refusing DC to rehab. Patient insists on DC home. Will DC home with [facility] assistance and home PT. Patient has been noncompliant in the past and is a high risk for readmission. - Time Spent with Patient Total time spent providing and/or coordinating discharge services: Greater than 30 minutes Exam Vital signs: Vital Signs 03/04/18 15:00 03/04/18 17:13 03/04/18 19:00 Temperature 98.0 F 98.5 F Pulse Rate 95 H 101 H Respiratory Rate 17 16 Blood Pressure 117/77 163/81 H Pulse Oximetry 98 98 98 03/04/18 20:00 03/04/18 23:00 03/05/18 00:00 Temperature 98.8 F Pulse Rate 103 H Respiratory Rate 16 Blood Pressure 154/89 H Pulse Oximetry 98 97 97 03/05/18 03:00 03/05/18 07:00 03/05/18 07:50 Temperature 98.6 F 98.6 F Pulse Rate 100 H 74 Respiratory Rate 16 16 Blood Pressure 119/56 L 142/84 H Pulse Oximetry 96 98 96 03/05/18 11:00 Temperature 98.6 F Pulse Rate 82 Respiratory Rate 17 Blood Pressure 145/83 H Pulse Oximetry 96 Intake & Output 03/04/18 03/05/18 03/05/18 18:59 06:59 18:59 Intake Total 1000 / 1000 1090 / 1090 1250 / 1250 Output Total 1020 / 1020 Balance 1000 / 1000 70 / 70 1250 / 1250 Weight 114 kg Intake: IV 1000 / 1000 250 / 250 1250 / 1250 Heparin/D5W 25,000 U/250 mL 25, 250 / 250 250 / 250 000 unit In 250 ml @ 18 UNITS/ KG/HR 17.962 mls/hr IV.CONT TITRATE PRN Rx#:[id number] NS Inj 1,000 ML @ 100 mls/hr IV 1000 / 1000 1000 / 1000 .CONT .Q10H JAZMINE Rx#:[id number] Oral 840 / 840 Output: Urine 1020 / 1020 Other: # Voids 1 Date of Last Bowel Movement 02/27/18 03/04/18 # Bowel Movements 1 Narrative: General: NAD, Awake, alert with periods of confused Chest: CTA Cardiac: Regular Abd: +BS, soft ND/NT Ext: mild bilateral LE edema Results Procedures completed during hospitalization: Vascath placed on 03/01 and HD initiated Labs on day of discharge: Labs from last 24 hours 03/05/18 03/05/18 03/05/18 10:59 07:29 07:15 WBC RBC Hgb Hct MCV MCH MCHC RDW Plt Count MPV Neut % (Auto) Lymph % (Auto) [place] % (Auto) Eos % (Auto) Baso % (Auto) Neut # (Auto) Lymph # (Auto) [place] # (Auto) Eos # (Auto) Baso # (Auto) WBC Differential Differential Comment APTT 79.7 H D Sodium Potassium Chloride Carbon Dioxide Anion Gap BUN Creatinine Estimated GFR POC Glucose 174 H 179 H Random Glucose Calcium Carcinoembryonic Ag GRETA Interpretation 03/05/18 03/05/18 03/04/18 04:40 04:40 20:05 WBC 4.5 RBC 2.81 L Hgb 10.0 L Hct 29.0 L MCV 103.2 H MCH 35.7 H MCHC 34.6 RDW 20.2 H Plt Count 148 L MPV 7.0 Neut % (Auto) 70.5 H Lymph % (Auto) 6.5 L [place] % (Auto) 15.5 H Eos % (Auto) 7.0 H Baso % (Auto) 0.5 Neut # (Auto) 3.2 Lymph # (Auto) 0.3 L [place] # (Auto) 0.7 Eos # (Auto) 0.3 Baso # (Auto) 0.0 WBC Differential . Differential Comment Auto diff final APTT Sodium 141 Potassium 3.6 Chloride 105 Carbon Dioxide 26.7 Anion Gap 9 BUN 28 H Creatinine 1.43 H Estimated GFR 51 L POC Glucose 198 H Random Glucose 182 H Calcium 7.9 L Carcinoembryonic Ag 22.5 H GRETA Interpretation 02/28/18 21:15 WBC RBC Hgb Hct MCV MCH MCHC RDW Plt Count MPV Neut % (Auto) Lymph % (Auto) [place] % (Auto) Eos % (Auto) Baso % (Auto) Neut # (Auto) Lymph # (Auto) [place] # (Auto) Eos # (Auto) Baso # (Auto) WBC Differential Differential Comment APTT Sodium Potassium Chloride Carbon Dioxide Anion Gap BUN Creatinine Estimated GFR POC Glucose Random Glucose Calcium Carcinoembryonic Ag GRETA Interpretation - Impressions ITS Impressions Abdomen/Bladder Ultrasound 02/28/18 00:00 CONCLUSION: 1. Concerning findings with respect to the right kidney with asymmetric increased echogenicity of the upper pole as compared to the lower pole and decreased flow identified within the lower pole. Given the findings of PE on prior CT this may reflect sequelae of an embolus to the right kidney. Venous Doppler Study 02/28/18 10:01 CONCLUSION: 1. Extensive left lower extremity deep venous thrombosis; was seen on 2017. Head CT 02/28/18 10:03 CONCLUSION: 1. Negative for acute process . Lumbar Spine CT 02/28/18 11:33 CONCLUSION: 1. Degenerative disc disease asymmetric to left at L5-S1 with prominent osteophytic spur impinging on the traversing left S1 nerve root. Moderate bilateral foraminal narrowing at L5-S1. Chest X-Ray 02/28/18 13:30 CONCLUSION: Negative for acute process Abdomen/Pelvis CT 03/01/18 00:00 CONCLUSION: 1. Ill-defined and partially nodular opacities about the posterior peritoneal margin and in the anterior peritoneum or omentum. This nonspecific in appearance , but is a new finding compared to prior CT scans and suggests possible peritoneal carcinomatosis. Recommend further characterization with PET/CT scan. Catheter Placement 03/01/18 00:00 CONCLUSION: 1. Uncomplicated line placement as above. 2. I believe the right IJ is either quite diminutive or occluded. The small vessel identified intermittently adjacent to the carotid may represent the tortuous external jugular. Renal Scan w/Medication NM 03/03/18 00:00 CONCLUSION: 1. Normal DTPA renogram without obstruction. Split function 54% left 46% right <Babak Martinez Hortencia - Last Filed: 03/29/18 15:58> Date of admission: 02/28/18 13:54 Primary care physician: Axel Manrique MD DS: Summary Hospital Course: Patient examined. Assessment and plan formulated with Minerva Marino PA-C. I agree with the above. - Time Spent with Patient Total time spent providing and/or coordinating discharge services: Results - Impressions ITS Impressions Abdomen/Bladder Ultrasound 02/28/18 00:00 CONCLUSION: 1. Concerning findings with respect to the right kidney with asymmetric increased echogenicity of the upper pole as compared to the lower pole and decreased flow identified within the lower pole. Given the findings of PE on prior CT this may reflect sequelae of an embolus to the right kidney. Venous Doppler Study 02/28/18 10:01 CONCLUSION: 1. Extensive left lower extremity deep venous thrombosis; was seen on 2017. Head CT 02/28/18 10:03 CONCLUSION: 1. Negative for acute process . Lumbar Spine CT 02/28/18 11:33 CONCLUSION: 1. Degenerative disc disease asymmetric to left at L5-S1 with prominent osteophytic spur impinging on the traversing left S1 nerve root. Moderate bilateral foraminal narrowing at L5-S1. Chest X-Ray 02/28/18 13:30 CONCLUSION: Negative for acute process Abdomen/Pelvis CT 03/01/18 00:00 CONCLUSION: 1. Ill-defined and partially nodular opacities about the posterior peritoneal margin and in the anterior peritoneum or omentum. This nonspecific in appearance , but is a new finding compared to prior CT scans and suggests possible peritoneal carcinomatosis. Recommend further characterization with PET/CT scan. Catheter Placement 03/01/18 00:00 CONCLUSION: 1. Uncomplicated line placement as above. 2. I believe the right IJ is either quite diminutive or occluded. The small vessel identified intermittently adjacent to the carotid may represent the tortuous external jugular. Renal Scan w/Medication NM 03/03/18 00:00 CONCLUSION: 1. Normal DTPA renogram without obstruction. Split function 54% left 46% right Discharge Plan - Discharge Order Discharge Orders: Discharge Order (Routine); Ordered 03/05/18 Ordered By: Minerav Marino - Discharge Details Anticipated Discharge Date: 03/05/18 - Physicians Team Primary Care Provider: Axel Manrique Attending Provider: Travis Austin Other Providers: Dada Rodríguez MD ; Reynaldo Downs MD ; Rafael Carr MD
--- NOTE | 2018-03-05 13:37 | P.PNONC ---
Subjective Interval history: Patient resting in bed comfortably, his mother is at the bedside. Patient is anxious to go home. He states he has an appointment with Dr. Carr tomorrow. We had a very long discussion in regards to his recent PET CT scan on 02/07/2018 which showed some residual thickening in the rectal wall. We have also discussed the importance of staying on Lovenox. Objective Vital Signs/Intake & Output: Vital Signs 03/04/18 15:00 03/04/18 17:13 03/04/18 19:00 Temperature 98.0 F 98.5 F Pulse Rate 95 H 101 H Respiratory Rate 17 16 Blood Pressure 117/77 163/81 H Pulse Oximetry 98 98 98 03/04/18 20:00 03/04/18 23:00 03/05/18 00:00 Temperature 98.8 F Pulse Rate 103 H Respiratory Rate 16 Blood Pressure 154/89 H Pulse Oximetry 98 97 97 03/05/18 03:00 03/05/18 07:00 03/05/18 07:50 Temperature 98.6 F 98.6 F Pulse Rate 100 H 74 Respiratory Rate 16 16 Blood Pressure 119/56 L 142/84 H Pulse Oximetry 96 98 96 03/05/18 11:00 Temperature 98.6 F Pulse Rate 82 Respiratory Rate 17 Blood Pressure 145/83 H Pulse Oximetry 96 Intake & Output 03/04/18 03/05/18 03/05/18 18:59 06:59 18:59 Intake Total 1000 / 1000 1090 / 1090 1250 / 1250 Output Total 1020 / 1020 Balance 1000 / 1000 70 / 70 1250 / 1250 Weight 114 kg Intake: IV 1000 / 1000 250 / 250 1250 / 1250 Heparin/D5W 25,000 U/250 mL 25, 250 / 250 250 / 250 000 unit In 250 ml @ 18 UNITS/ KG/HR 17.962 mls/hr IV.CONT TITRATE PRN Rx#:[id number] NS Inj 1,000 ML @ 100 mls/hr IV 1000 / 1000 1000 / 1000 .CONT .Q10H JAZMINE Rx#:[id number] Oral 840 / 840 Output: Urine 1020 / 1020 Other: # Voids 1 Date of Last Bowel Movement 02/27/18 03/04/18 # Bowel Movements 1 Result Diagrams: 03/05/18 04:40 03/05/18 04:40 Laboratory Results: Laboratory Results - last 24 hr 02/28/18 03/04/18 03/05/18 21:15 20:05 04:40 WBC 4.5 RBC 2.81 L Hgb 10.0 L Hct 29.0 L MCV 103.2 H MCH 35.7 H MCHC 34.6 RDW 20.2 H Plt Count 148 L MPV 7.0 Neut % (Auto) 70.5 H Lymph % (Auto) 6.5 L [place] % (Auto) 15.5 H Eos % (Auto) 7.0 H Baso % (Auto) 0.5 Neut # (Auto) 3.2 Lymph # (Auto) 0.3 L [place] # (Auto) 0.7 Eos # (Auto) 0.3 Baso # (Auto) 0.0 WBC Differential . Differential Comment Auto diff final APTT Sodium Potassium Chloride Carbon Dioxide Anion Gap BUN Creatinine Estimated GFR POC Glucose 198 H Random Glucose Calcium Carcinoembryonic Ag GRETA Interpretation 03/05/18 03/05/18 03/05/18 04:40 07:15 07:29 WBC RBC Hgb Hct MCV MCH MCHC RDW Plt Count MPV Neut % (Auto) Lymph % (Auto) [place] % (Auto) Eos % (Auto) Baso % (Auto) Neut # (Auto) Lymph # (Auto) [place] # (Auto) Eos # (Auto) Baso # (Auto) WBC Differential Differential Comment APTT 79.7 H D Sodium 141 Potassium 3.6 Chloride 105 Carbon Dioxide 26.7 Anion Gap 9 BUN 28 H Creatinine 1.43 H Estimated GFR 51 L POC Glucose 179 H Random Glucose 182 H Calcium 7.9 L Carcinoembryonic Ag 22.5 H GRETA Interpretation 03/05/18 10:59 WBC RBC Hgb Hct MCV MCH MCHC RDW Plt Count MPV Neut % (Auto) Lymph % (Auto) [place] % (Auto) Eos % (Auto) Baso % (Auto) Neut # (Auto) Lymph # (Auto) [place] # (Auto) Eos # (Auto) Baso # (Auto) WBC Differential Differential Comment APTT Sodium Potassium Chloride Carbon Dioxide Anion Gap BUN Creatinine Estimated GFR POC Glucose 174 H Random Glucose Calcium Carcinoembryonic Ag GRETA Interpretation Culture Results: Microbiology 02/28/18 14:50 Aerobic Blood Culture - Final Blood - Peripheral No growth in 5 days Anaerobic Blood Culture - Final No growth in 5 days 02/28/18 16:55 Aerobic Blood Culture - Final Blood - Peripheral No growth in 5 days Anaerobic Blood Culture - Final No growth in 5 days Medications: Active Medications Generic Name Dose Route Start Last Admin Trade Name Freq PRN Reason Stop Dose Admin Calcium Acetate 667 mg 03/02/18 18:00 03/05/18 12:50 Phoslo PO Not Given TID JAZMINE Gabapentin 100 mg 02/28/18 21:00 03/04/18 20:36 Neurontin PO 100 mg HS JAZMINE Administration Sodium Chloride 1,000 mls @ 0 mls/hr 02/28/18 12:15 02/28/18 14:55 Ns Inj IV.SIG Infused BOLUS JAZMINE Infusion Wide Open Sodium Chloride 1,000 mls @ 0 mls/hr 02/28/18 13:30 02/28/18 14:55 Ns Inj IV.SIG Infused BOLUS JAZMINE Infusion Wide Open Sodium Chloride 1,000 mls @ 100 mls/hr 02/28/18 16:30 03/05/18 10:49 Ns Inj IV.CONT 100 mls/hr .Q10H JAZMINE Administration Heparin Sodium/Dextrose 25,000 unit in 250 mls @ 17.962 mls/hr 02/28/18 15:45 03/05/18 10:53 Heparin/D5w 25,000 U/250 Ml IV.CONT 17.2 units/kg/hr TITRATE PRN 17.16 mls/hr Per Protocol Administration Protocol 18 UNITS/KG/HR Insulin Aspart 0 unit 02/28/18 17:00 03/05/18 11:47 Novolog Insulin Correctional Sugar Inj SQ 2 unit ACHS JAZMINE Administration Protocol Lactulose 30 ml 03/02/18 16:50 03/02/18 17:06 Lactulose Liq PO 30 ml Q8H PRN Administration CONSTIPATION Morphine Sulfate 4 mg 02/28/18 15:17 03/03/18 16:48 Morphine Inj IV.PUSH 4 mg Q4H PRN Administration breakthrough pain above 7 Ondansetron HCl 4 mg 03/01/18 12:00 03/01/18 12:20 Zofran Inj IV.PUSH 4 mg UNSCH X1 PRN Administration WITH DIALYSIS Oxycodone HCl 20 mg 02/28/18 16:00 03/05/18 11:48 Roxicodone PO 20 mg Q4H JAZMINE Administration Pantoprazole Sodium 40 mg 03/02/18 15:00 03/05/18 04:27 Protonix Inj IV.PUSH 40 mg Q12H JAZMINE Administration Objective Remarks: GENERAL: Well-nourished, well-developed middle-aged male patient, in no acute distress. SKIN: Warm and dry. HEAD: Normocephalic. EYES: No scleral icterus. No injection or drainage. NECK: Supple, trachea midline. CARDIOVASCULAR: Regular rate and rhythm without murmurs. RESPIRATORY: Breath sounds clear, equal bilaterally. No accessory muscle use. GASTROINTESTINAL: Abdomen soft, non-tender, nondistended. EXTREMITIES: No cyanosis, or edema. MUSCULOSKELETAL: Adequate muscle tone. NEUROLOGICAL: No obvious focal deficit. Awake, alert, and oriented x3. PSYCHIATRIC: Appropriate mood and affect; insight and judgment normal. Assessment/Plan - Plan Mr. Nixon is a 57-year-old gentleman with a history of metastatic anorectal cancer with liver metastasis. He was treated with radiation and concurrent Xeloda, completed 12/2017. In January,, he reportedly had a rectal ultrasound which still showed a 2.3 x 1 cm residual mass. The patient was then started on Xeloda 25 mg twice daily. He has recently completed this last cycle. Patient was referred to and seen by Dr. Emerson in [place], per patient he was recommended to have a colonoscopy, patient refused. Patient had a PET CT scan on 02/07/2018 which showed resolution of the liver mass, no significant mass noted in the rectum, however thickening of the rectal wall. There is suspicion for residual tumor in the rectum. Recommendations have been made for the patient to see Dr. Carr for another exam. If if the patient wants aggressive treatment, recommendations would be for resection of the tumor , since his liver metastasis has resolved with chemotherapy. To note during this admission, CT abdomen and pelvis shows ill-defined partially nodular opacity in the peritoneum and omentum. There is concern for carcinomatosis, CEA is elevated at 22.5. Patient with history of PE and DVTs, 01/2018. He was discharged from the hospital on Lovenox, however patient states he ran out and he stopped taking it for approximately 10 days. On presentation this hospitalization patient was found to be in acute renal failure, therefore he was placed on a heparin drip. Plan: 1. Metastatic anorectal cancer. CEA is 22.5. CT abdomen and pelvis shows ill- defined partially nodular opacity in the peritoneum and omentum, suspicious for carcinomatosis. Recommendations for patient to follow-up with Dr. Carr for possible surgical resection. Patient with appointment tomorrow. 2. History of PE and DVTs. Renal function has improved. Patient may be restarted on Lovenox and heparin drip DC'd. 3. Patient anxious to be discharged home. From an oncology standpoint patient may be discharged home on Lovenox therapy. He is to call our office to make his follow-up appointment with Dr. connell. 4. Patient to maintain appointment with Dr. Carr tomorrow. - Attending Statement The exam, history, and the medical decision-making described in the above note were completed with the assistance of the mid-level provider. I reviewed and agree with the findings presented. I attest that I had a [id number] encounter with the patient on the same day, and personally performed and documented my assessment and findings in the medical record. Patient denies any chest pain or shortness of breath. He still has soreness in his left lower extremity. He has no bleeding. His renal dysfunction has improved. He can be transitioned to Lovenox. He has more question regarding treatment of his cancer which were answered. He does not like the idea that he is going to require surgical resection of the rectal mass. I told him to follow-up with Dr. Carr for rectal exam. His CEA is still elevated at 22 and likely has residual disease.
--- NOTE | 2018-03-05 16:59 | P.DCO ---
- Physical Therapy Order: Evaluate and treat - Occupational Therapy Order: Evaluate and treat - Home Health Nursing Order: Medical education, Signs/symptoms of disease process, Medication education-adverse effect, Nursing assessment with vital signs Instructions: assist with Lovenox injections and medication compliance - [employer] Order: To evaluate: Living conditions/environment, Support services - Certification I have seen patient Madhav Nixon on 03/05/18. My clinical findings support the need for the requested home health care services because: Limited mobility due to disease progression, Medication compliance is questionable, Limited ability to care for self I certify that my clinical findings support that this patient is homebound because: Unsteady gait/balance, Unsafe to leave home unassisted
== END 2018-03-05 19:32 | disposition home health service (06) ==
LOC: NEPE 09:42 → NEDA 13:54 → HCPC 03-01 01:26
PROVIDERS: ADMIT Hospitalist; ATTEND Hospitalist